=== PATIENT | male | born 1960 | race Caucasian/White ===

== ENCOUNTER → 2016-10-04 | Outpatient (CLI) | payer BC ==
[~2016-10-04] MED LIST: ANT25 PO; ATV/1 SL; GADAVIST IV PRN; HYDR-5688 PO; LACTCHW3 PO; MUPI2OIN9 TOP; NAPR1TAB9 PO
[2016-10-04 12:38] LABS: BLOOD UREA NITROGEN 17 mg/dl (7-18); CREATININE 0.91 mg/dl (0.60-1.40)
--- NOTE | 2016-10-04 12:59 | DIAGNOSTIC IMAGING REPORT ---
MRI OF THE BRAIN WITHOUT AND WITH IV CONTRAST CLINICAL HISTORY: DIZZINESS, VERTIGO WEREN'T VISION. DIFFICULTY. COMPARISON STUDY: No previous studies for comparison. TECHNIQUE: MRI of the brain was performed from the vertex to the skull base utilizing various T1 and T2 weighted sequences. Following the IV administration of 9 mL of Gadavist contrast, additional enhanced images were obtained. FINDINGS: Sagittal T1, axial diffusion, proton density and T2 weighted axial, coronal FLAIR, and pre and post axial T1-weighted images were acquired. These were supplemented with post gadolinium coronal T1 weighted images. No intra or extra-axial mass lesions are visualized. Axial diffusion-weighted images reveal no evidence of acute or subacute infarction. There is no evidence of ventricular dilatation. Proton density T2-weighted and FLAIR images reveal scattered foci of increased T2 signal within the white matter, likely on a small vessel basis. There are no abnormal flow voids. There is no evidence of pathologic enhancement. IMPRESSION: 1. No acute intracranial findings 2. No evidence of intracranial mass. No evidence of acute or subacute infarction 3. Scattered nonspecific foci of increased T2 signal within the white matter, likely on a small vessel basis Electronically signed by: Enio Phillips M.D. 10/04/2016 12:58 PM Dictated Date/Time: 10/04/2016 12:56 PM
== END | disposition home or self-care (01) ==
LOC: C.MRI 11:50
PROVIDERS: ATTEND Family Medicine
DX: H55.00 Unspecified nystagmus (principal); R42 Dizziness and giddiness

== ENCOUNTER 2016-10-05 15:07 | Emergency (ER) | payer BC ==
[~2016-10-05] VITALS: Ht 177.8 cm; Wt 94.5 kg
[~2016-10-05 15:07] MED LIST changes: -ANT25 PO; -ATV/1 SL; -GADAVIST IV PRN
[2016-10-05 15:11] VITALS: TEMP 36.5; Ht 177.8 cm; Wt 94.5 kg
[2016-10-05 16:01] LABS: BASO % 0.2 %; BASO ABS # 0.01 K/uL (0-0.2); COMPLETE YES; EOS % 1.4 %; HEMATOCRIT 44.6 % (42-52); IG% 0.2 %; LYMPH % 34.7 %; LYMPH ABS # 2.18 K/uL (1.2-3.4); MEAN CELL VOLUME 85.6 fL (80-100); MEAN CORPUSCULAR HEMOGLOBIN 30.5 pg (25-34); MEAN CORPUSCULAR HGB CONC 35.7 g/dl (32-36); MEAN PLATELET VOLUME 9.8 fL (7.4-10.4); MONO % 10.2 %; NEUT % 53.3 %; PLATELET COUNT 170 K/uL (130-400); RED BLOOD COUNT 5.21 M/uL (4.7-6.1); WHITE BLOOD COUNT 6.28 K/uL (4.8-10.8)
[2016-10-05] MEDS ORDERED: SODIUM CHLORIDE 0.9% 1000ML 1,000 ML IV STA (16:11)
[2016-10-05] MEDS ORDERED: SODIUM CHLORIDE 0.9% 1000ML 1,000 ML IV ONE (16:11)
[2016-10-05] MEDS ORDERED: LORAZEPAM 1 MG TAB SL STA (16:11)
[2016-10-05 16:14] LABS: BUN/CREATININE RATIO 16.7 (10-20); CALCIUM 9.1 mg/dl (8.5-10.1); POTASSIUM 4.2 mmol/L (3.5-5.1)
[2016-10-05] MEDS ORDERED: NAPR1TAB9 PO (16:24)
[2016-10-05] MEDS ORDERED: ANT25 PO (16:24)
[2016-10-05 16:26] LABS: ALB/GLOB RATIO 1.4 (0.9-2); CKMB/CK RATIO 0.8 (0-3.0); THYROID STIMULATING HORMONE 2.28 uIu/ml (0.300-4.500)
--- NOTE | 2016-10-05 16:32 | EMERGENCY ROOM VISIT NOTE ---
History Report prepared by Lupillo: Valerie Garsia Under the Supervision of: Dr. Ashutosh Jacobo M.D. First contact with patient: 15:57 Chief Complaint: DIZZY Stated Complaint: DIZZY History of Present Illness The patient is a 55 year old male who presents to the Emergency Room with complaints of constant dizziness beginning 2 days ago. The patient states that over the last 2 days his dizziness has worsened and it feels like the room is spinning and he is spinning in the opposite direction. He reports that laying still relieves his dizziness but any movement worsens it. He complains of neck stiffness from holding his head still, headache, nausea, blurry vision with movement, and some shortness of breath. He denies any vomiting, fall, numbness, weakness, trouble speaking, trouble swallowing, ear pain, new ringing in the ears, chest pain, abdominal pain, black stool, bloody stool. The patient notes that he has a history of migraine headaches but this does not feel similar. He reports that he was seen at [facility] and was put on Meclizine that has not relieved his dizziness. He states that he also got an MRI yesterday that was normal. The patient notes that he was seen there again today and they suggested he be seen at the ED. He states that he has not had any neck injury at work but notes that he has a history of some neck issues that he learned about when he had a previous back surgery. Source of History: patient Onset: 2 days ago Position: other (global) Quality: other (dizziness) Timing: constant Modifying Factors (Worsening): movement Modifying Factors (Relieving): rest Associated Symptoms: + headache, + neck pain, + SOB, + nausea, No LOC, No chest pain, No vomiting, No abdominal pain, No weakness, No numbness Note: He complains of blurry vision with movement. He denies any fall, trouble speaking, trouble swallowing, ear pain, new ringing in the ears, black stool, and bloody stool. Review of Systems See HPI for pertinent positives & negatives. A total of 10 systems reviewed and were otherwise negative. Past Medical & Surgical Medical Problems: (1) Abscess of right axilla (2) Aspergillosis (3) Cellulitis (4) Encounter for removal of sutures (5) Foreign body of second finger, right (6) Hemorrhoids Nos (7) History Of Tobacco Use (8) Lumbosacral Spondylosis (9) Sciatica (10) Sialoadenitis (11) Work related injury Surgical Problems: (1) History of back surgery Old medical records were reviewed. Nurse's notes were reviewed and I agree with. Family History FH: cancer Social History Smoking Status: Never Smoker Smokeless Tobacco Use: No Alcohol Use: none Drug Use: none Marital Status: Housing Status: lives with significant other Occupation Status: employed Current/Historical Medications Scheduled Naproxen (Aleve), 440 MG PO PRN UD Scheduled PRN Lorazepam (Ativan), 1 MG SL Q6H PRN for Dizziness or Vertigo Meclizine HCl (Meclizine HCl), 25 MG PO TID PRN for Dizziness or Vertigo Allergies Coded Allergies: Lorazepam (Verified Allergy, Severe, "DANGEROUSLY RAISES BLOOD PRESSURE", 10/05/16) Midazolam (Verified Adverse Reaction, Severe, TACHYCARDIA, 10/05/16) Codeine (Verified Adverse Reaction, Mild, NAUSEA, 10/05/16) Silver (Unverified Adverse Reaction, Unknown, RASH, 10/05/16) developed pain with use of silver alginate Uncoded Allergies: SMOOTH MUSCLE (Allergy, Unknown, "SOME SORT OF MUSCLE RELAXER", 05/04/09) Physical Exam Vital Signs Date Time Temp Pulse Resp B/P (MAP) Pulse Ox O2 Delivery O2 Flow Rate FiO2 10/05/16 20:06 78 20 151/97 97 Room Air 10/05/16 18:30 66 16 133/85 98 Room Air 10/05/16 16:35 63 16 160/84 98 Room Air 10/05/16 16:26 69 143/101 74 162/99 77 160/84 10/05/16 15:29 70 10/05/16 15:11 36.5 66 18 149/100 97 Room Air Physical Exam General: Well developed well nourished in no acute distress, non-ill appearing middle aged male, breathing comfortably on room air. Normal speech HEENT: Normal cephalic atraumatic. Pupils are equal round and reactive to light. Horizontal nystagmus mostly to the right. Oropharynx is pink with moist mucous membranes. No swelling of the mouth lips or tongue. Neck: Supple with a midline trachea. No meningeal signs or stiffness, no JVD or bruits. No Stridor. Chest: Clear to auscultation bilaterally. No wheezes or rhonchi. No increased work of breathing. Heart: regular rate and rhythm. Abdomen: Soft nontender, nondistended without rebound guarding or rigidity. Extremities: No cyanosis clubbing or edema. No calf tenderness or assymetry Spine/Back. Non tender to palpation. No CVA tenderness Skin: Good turgor without rashes. Neurologic exam: Cranial nerves two through 12 are intact. Motor and sensation are intact and symmetrical throughout. Finger to nose intact, no tremor, dizziness occurs when he sits up or moves his head. Medical Decision & Procedures ER Provider Diagnostic Interpretation: Radiology results as stated below per my review and radiologist interpretation: SINGLE VIEW CHEST FINDINGS: An AP, portable, upright chest radiograph is compared to study dated 11/23/2015 and correlated with chest CT dated 09/03/2015. The examination is degraded by portable technique, apical lordotic positioning, and patient rotation. The cardiomediastinal heart is top normal for projection. The pulmonary vascular structures noncongested. The lungs and pleural spaces are clear. No pneumothorax is seen. The bony thorax is grossly intact. IMPRESSION: No acute cardiopulmonary abnormality. Electronically signed by: Jimmy Collazo M.D. 10/05/2016 4:32 PM Dictated Date/Time: 10/05/2016 4:[address] ANGIOGRAM OF THE BRAIN COMBO; CT ANGIOGRAM OF THE NECK FINDINGS: Brain parenchyma: The brain parenchyma is normal in appearance. There is no hemorrhage, mass effect, or evidence of acute territorial ischemia by CT criteria. There is no evidence of enhancing mass lesion on the angiogram phase images. The ventricles, sulci, and cisterns are normal in configuration. Mack-white matter differentiation is preserved. No extra-axial fluid collection is seen. Thoracic aorta: Visualized portions of the thoracic aorta are normal in caliber. The aortic arch demonstrates standard 3-vessel anatomy. Right carotid arterial system: The right common carotid artery is widely patent, as are the right internal and external carotid arteries. Left carotid arterial system: The left common carotid artery is widely patent, as are the left internal and external carotid arteries. Vertebral arteries: The vertebral arteries are widely patent and codominant. Subclavian arteries: Widely patent bilaterally. Intracranial vasculature: The internal carotid arteries are patent at the skull base, as are the anterior and middle cerebral arteries bilaterally. The vertebrobasilar system and posterior cerebral arteries are widely patent. The vertebral arteries are codominant. There is no aneurysm, high-grade stenosis, or focal vessel cut off seen throughout the intracranial circulation. Jugular veins: Widely patent bilaterally. Dural sinuses: Patent. Lung apices: Partially visualized upper lobe lung parenchyma appears clear. Soft tissues: The visualized pharyngeal soft tissues are normal in appearance noting angiographic phase technique. The oropharyngeal airway appears widely patent. The salivary and thyroid glands are normal in appearance. No cervical lymphadenopathy is seen. Skeletal structures: The calvarium appears intact. The cervical spine is within normal limits. Sinuses and mastoids: Trace mucosal thickening is seen within the maxillary antra. The remaining paranasal sinuses are clear. The mastoid air cells are well pneumatized. IMPRESSION: 1. There is no hemorrhage, mass effect, or evidence of acute territorial ischemia by CT criteria. 2. Unremarkable CT angiogram of the brain. 3. Unremarkable CT angiogram of the neck. Electronically signed by: Jimmy Collazo M.D. 10/05/2016 7:10 PM Dictated Date/Time: 10/05/2016 7:03 PM Laboratory Results 10/05/16 15:30 Red Blood Count 5.21, Mean Corpuscular Volume 85.6, Mean Corpuscular Hemoglobin 30.5, Mean Corpuscular Hemoglobin Concent 35.7, Mean Platelet Volume 9.8, Neutrophils (%) (Auto) 53.3, Lymphocytes (%) (Auto) 34.7, Monocytes (%) (Auto) 10.2, Eosinophils (%) (Auto) 1.4, Basophils (%) (Auto) 0.2, Neutrophils # (Auto ) 3.35, Lymphocytes # (Auto) 2.18, Monocytes # (Auto) 0.64, Eosinophils # (Auto ) 0.09, Basophils # (Auto) 0.01 10/05/16 15:30 Test 10/05/16 00:00 10/05/16 15:30 10/05/16 18:06 Urine Color YELLOW Urine Appearance CLEAR (CLEAR) Urine pH 5.0 (4.5-7.5) Urine Specific [place] 1.015 (1.000-1.030) Urine Protein NEG (NEG) Urine Glucose (UA) NEG (NEG) Urine Ketones NEG (NEG) Urine Occult Blood NEG (NEG) Urine Nitrite NEG (NEG) Urine Bilirubin NEG (NEG) Urine Urobilinogen NEG (NEG) Urine Leukocyte Esterase NEG (NEG) Urine WBC (Auto) 0 /hpf (0-5) Urine RBC (Auto) 0-4 /hpf (0-4) Urine Hyaline Casts (Auto) 0 /lpf (0-5) Urine Epithelial Cells (Auto) 0-5 /lpf (0-5) Urine Bacteria (Auto) NEG (NEG) White Blood Count 6.28 K/uL (4.8-10.8) Red Blood Count 5.21 M/uL (4.7-6.1) Hemoglobin 15.9 g/dL (14.0-18.0) Hematocrit 44.6 % (42-52) Mean Corpuscular Volume 85.6 fL (80-100) Mean Corpuscular Hemoglobin 30.5 pg (25-34) Mean Corpuscular Hemoglobin Concent 35.7 g/dl (32-36) Platelet Count 170 K/uL (130-400) Mean Platelet Volume 9.8 fL (7.4-10.4) Neutrophils (%) (Auto) 53.3 % Lymphocytes (%) (Auto) 34.7 % Monocytes (%) (Auto) 10.2 % Eosinophils (%) (Auto) 1.4 % Basophils (%) (Auto) 0.2 % Neutrophils # (Auto) 3.35 K/uL (1.4-6.5) Lymphocytes # (Auto) 2.18 K/uL (1.2-3.4) Monocytes # (Auto) 0.64 K/uL (0.11-0.59) Eosinophils # (Auto) 0.09 K/uL (0-0.5) Basophils # (Auto) 0.01 K/uL (0-0.2) RDW Standard Deviation 37.8 fL (36.4-46.3) RDW Coefficient of Variation 12.0 % (11.5-14.5) Immature Granulocyte % (Auto) 0.2 % Immature Granulocyte # (Auto) 0.01 K/uL (0.00-0.02) Anion Gap 10.0 mmol/L (3-11) Est Creatinine Clear Calc Drug Dose 95.2 ml/min Estimated GFR () 97.1 Estimated GFR (Non- 83.8 BUN/Creatinine Ratio 16.7 (10-20) Calcium Level 9.1 mg/dl (8.5-10.1) Total Bilirubin 0.4 mg/dl (0.2-1) Aspartate Amino Transf (AST/SGOT) 17 U/L (15-37) Alanine Aminotransferase (ALT/SGPT) 42 U/L (12-78) Alkaline Phosphatase 63 U/L (45-117) Total Creatine Kinase 100 U/L (39-308) Creatine Kinase MB 0.8 ng/ml (0.5-3.6) Creatine Kinase MB Ratio 0.8 (0-3.0) Total Protein 7.1 gm/dl (6.4-8.2) Albumin 4.1 gm/dl (3.4-5.0) Globulin 3.0 gm/dl (2.5-4.0) Albumin/Globulin Ratio 1.4 (0.9-2) Thyroid Stimulating Hormone (TSH) 2.280 uIu/ml (0.300-4.500) Chemistry Specimen Hemolysis Troponin I < 0.015 ng/ml (0-0.045) Lyme Disease IgG Antibody NEG (NEG) Lyme Disease IgM Antibody NEG (NEG) Laboratory studies as stated above per my review. Medications Administered Medications (Trade) Dose Ordered Sig/Johnna Route Start Time Stop Time Status Last Admin Dose Admin Sodium Chloride 1,000 ml @ 999 mls/hr Q1H1M STAT IV 10/05/16 16:11 10/05/16 17:11 DC 10/05/16 16:11 999 MLS/HR Sodium Chloride 1,000 ml @ 150 mls/hr Q6H40M ONCE IV 10/05/16 16:11 10/05/16 20:33 DC 10/05/16 16:11 150 MLS/HR Lorazepam (Ativan Tab) 1 mg NOW STAT SL 10/05/16 16:11 10/05/16 16:15 DC 10/05/16 16:11 1 MG Lorazepam (Ativan 1MG Home Pack) 1 homepack UD ONCE PO 10/05/16 20:00 10/05/16 20:01 DC 10/05/16 20:00 1 HOMEPACK Mupirocin (Bactroban 2% Oint) 1 appln ONE STAT EXT 10/05/16 19:46 10/05/16 19:47 DC 10/05/16 19:46 1 APPLN ECG Indication: other (dizziness) Rate (beats per minute): 59 Rhythm: sinus bradycardia Findings: PAC, no acute ischemic change Comparison ECG Date: 08/08/15 Change: PACs now present. ED Course 155: Past medical records reviewed. The patient was evaluated in room C5, and a complete history and physical examination were performed. 161: Ativan Tab 1mg SL, Sodium Chloride 1000 ml @ 150 mls/hr IV, Sodium Chloride 1000 ml @ 999 mls/hr IV. 161: I spoke to Dr. Almanza about the patients case. 172: I reevaluated the patient. He is feeling better after the Ativan. 1820: I reevaluated the patient. He is feeling good. 184: I reevaluated the patient. He is feeling better. 1942: Upon reevaluation, the patient is doing well. I discussed the results and treatment plan with the patient. He verbalized agreement of the treatment plan. The patient was discharged home. Medical Decision Differential diagnosis includes vertigo, CVA, cardiac disease, anemia, vascular pathology, electrolyte or metabolic abnormality. This patient comes in as described above. He's been having dizziness. It is worse with movement. He looks well at rest and has normal neurologic exam with exception of some horizontal nystagmus to the right. I think most likely this is peripheral vertigo. He did have a MRI yesterday which was. He has tried meclizine without much relief. No chest pain or shortness breath. IV access established and she was hydrated with IV normal saline. He was given Ativan 1 mg sublingual he tells me he's had this before but had some nightmares but otherwise felt okay with it and wants to try it. His is driving. I did order a CTA of his head and neck to rule out any vascular pathology. I did discuss this with Dr. Almanza who saw him in the clinic as well. Multiple blood tests was obtained. EKG does not suggest acute coronary syndrome or arrhythmia. Blood work was unremarkable there is no acute electrode or metabolic abnormalities. Lyme testing was negative. CTA of the head and neck was unremarkable. There is no evidence of any vascular abnormalities. The patient felt significantly better with the Ativan. His is driving. I will give a prescription for Ativan 1 mg under the tongue every 8 hours as needed for vertigo he was warned that it could make her drowsy and do not take before drinking, driving, working and do not take with meclizine. He also has a very small pimple on his left arm which the was concerned could be MRSA as he did had this before. I did order some Bactroban to use for this as well as no cellulitis or any drainable abscess. 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 He should rest and return if: Numbness or weakness, worsening symptoms, fever or chills, any new problems concerns. He is happy with the plan and discharged to home. Medication Reconciliation: I attest that I have personally reviewed the patient' s current medication list. Blood Pressure Screening: Patient was found to have a slightly elevated blood pressure due to circumstances. I do not believe that the patient requires hypertension monitoring. Consults Time Called: 1615 Consulting Physician: Dr. Almanza Returned Call: [id number] Almanza about the patients case. Impression Primary Impression: Vertigo Scribe Attestation The scribe's documentation has been prepared under my direction and personally reviewed by me in its entirety. I confirm that the note above accurately reflects all work, treatment, procedures, and medical decision making performed by me. Departure Information Dispostion Home / Self-Care Prescriptions Lorazepam (ATIVAN) 1 Mg Tab 1 MG SL Q6H Y for Dizziness or Vertigo, #14 TAB Prov: Ashutosh Jacobo M.D. 10/05/16 Referrals No Doctor, Assigned (PCP) Forms HOME CARE DOCUMENTATION FORM, IMPORTANT VISIT INFORMATION Patient Instructions My [facility] Additional Instructions Rest. Drink plenty of fluids. Be careful when getting up and down. May use lorazepam/Ativan 1 mg under the tongue every 8 hours if needed for vertigo. Ativan may make you drowsy do not take before drinking, driving, working. Do not take both Ativan and the meclizine. Take one or the other Return if: Worsening of symptoms, fever or chills, chest pain, short of breath, numbness, weakness, any new problems or concerns. Apply Bactroban to the area on your left arm. Follow-up with your doctor this week for recheck
[2016-10-05 18:40] LABS: URINE APPEARANCE CLEAR (CLEAR); URINE BILIRUBIN NEG (NEG); URINE COLOR YELLOW; URINE EPITHELIAL CELL AUTO 0-5 /lpf (0-5); URINE NITRITE NEG (NEG); URINE SPECIFIC GRAVITY 1.015 (1.000-1.030); UROBILINOGEN NEG (NEG); ZZUR CULT IF INDIC CLEAN CATCH NO
[2016-10-05 18:49] LABS: MANUAL MICROSCOPIC REQUIRED? NO; REVIEW REQ? NO
[2016-10-05] MEDS ORDERED: OPTIRAY 320 IV PRN (19:00)
--- NOTE | 2016-10-05 19:12 | DIAGNOSTIC IMAGING REPORT ---
CT ANGIOGRAM OF THE BRAIN COMBO; CT ANGIOGRAM OF THE NECK CLINICAL HISTORY: Dizziness. COMPARISON STUDY: MRI of the brain dated 10/04/2016. TECHNIQUE: Unenhanced axial CT scan of the brain is performed. Subsequently, following the IV administration of 114 of Optiray 320, CT angiogram of the head and neck was performed from the aortic arch to the vertex. Images are reviewed in the axial, sagittal, and coronal planes. 3-D MIPS images are created and assessed. IV contrast was administered without complication. All measurements were calculated based on NASCET criteria. CT DOSE: 1081.41 mGy.cm FINDINGS: Brain parenchyma: The brain parenchyma is normal in appearance. There is no hemorrhage, mass effect, or evidence of acute territorial ischemia by CT criteria. There is no evidence of enhancing mass lesion on the angiogram phase images. The ventricles, sulci, and cisterns are normal in configuration. Mack-white matter differentiation is preserved. No extra-axial fluid collection is seen. Thoracic aorta: Visualized portions of the thoracic aorta are normal in caliber. The aortic arch demonstrates standard 3-vessel anatomy. Right carotid arterial system: The right common carotid artery is widely patent, as are the right internal and external carotid arteries. Left carotid arterial system: The left common carotid artery is widely patent, as are the left internal and external carotid arteries. Vertebral arteries: The vertebral arteries are widely patent and codominant. Subclavian arteries: Widely patent bilaterally. Intracranial vasculature: The internal carotid arteries are patent at the skull base, as are the anterior and middle cerebral arteries bilaterally. The vertebrobasilar system and posterior cerebral arteries are widely patent. The vertebral arteries are codominant. There is no aneurysm, high-grade stenosis, or focal vessel cut off seen throughout the intracranial circulation. Jugular veins: Widely patent bilaterally. Dural sinuses: Patent. Lung apices: Partially visualized upper lobe lung parenchyma appears clear. Soft tissues: The visualized pharyngeal soft tissues are normal in appearance noting angiographic phase technique. The oropharyngeal airway appears widely patent. The salivary and thyroid glands are normal in appearance. No cervical lymphadenopathy is seen. Skeletal structures: The calvarium appears intact. The cervical spine is within normal limits. Sinuses and mastoids: Trace mucosal thickening is seen within the maxillary antra. The remaining paranasal sinuses are clear. The mastoid air cells are well pneumatized. IMPRESSION: 1. There is no hemorrhage, mass effect, or evidence of acute territorial ischemia by CT criteria. 2. Unremarkable CT angiogram of the brain. 3. Unremarkable CT angiogram of the neck. Electronically signed by: Jimmy Collazo M.D. 10/05/2016 7:10 PM Dictated Date/Time: 10/05/2016 7:03 PM
[2016-10-05 19:18] LABS: LYME DISEASE AB IGM NEG (NEG)
[2016-10-05 19:21] LABS: LYME DISEASE AB IGG NEG (NEG)
[2016-10-05] MEDS ORDERED: MUPIROCIN 2% OINT 22 GM TUBE EXT STA (19:46)
[2016-10-05] MEDS ORDERED: ATV/1 SL (19:48)
[2016-10-05] MEDS ORDERED: ATIVAN 1MG HOMEPACK PO ONE (20:00)
[2016-10-05 20:06] VITALS: BP 151/97; PULSE 78; O2SAT 97
== END 2016-10-05 20:16 | disposition home or self-care (01) ==
LOC: C.EDB 15:08 → C.EDC 20:16
DX: R42 Dizziness and giddiness (principal); B44.9 Aspergillosis, unspecified; K64.9 Unspecified hemorrhoids

== ENCOUNTER 2017-01-17 19:17 | Emergency (ER) | payer BC ==
[~2017-01-17] VITALS: Ht 177.8 cm; Wt 101.2 kg
[~2017-01-17 19:17] MED LIST changes: +ANT25 PO; -HYDR-5688 PO; -LACTCHW3 PO; -MUPI2OIN9 TOP
[2017-01-17 19:26] VITALS: TEMP 36.8; Ht 177.8 cm; Wt 101.2 kg
[2017-01-17] MEDS ORDERED: SULF800T23 PO (20:02)
[2017-01-17] MEDS ORDERED: BCTCR/30 EXT (20:02)
[2017-01-17] MEDS ORDERED: CEFA1TAB PEG (20:02)
[2017-01-17] MEDS ORDERED: XYLOCAINE 1%/SOD BICARB 20 ML VIAL INFIL ONE ×2 (20:15→21:00)
[2017-01-17] MEDS ORDERED: BUPIVACAINE 0.5 % 5 MG/1 ML MPF 30ML VIAL INFIL ONE (21:00)
[2017-01-17 21:10] LABS: INR 0.9 (0.9-1.1); PROTHROMBIN TIME (PATIENT) 10.1 SECONDS (9.0-12.0)
[2017-01-17] MEDS ORDERED: ONDANSETRON INJ 2 MG/ML 2 ML VIAL IV STA (21:16)
[2017-01-17] MEDS ORDERED: MoRPHine SULFATE 4 MG/ML 1 ML CARP\\VIAL IV STA ×2 (21:16→22:37)
[2017-01-17 21:18] LABS: BUN/CREATININE RATIO 15.7 (10-20); CALCIUM 9.1 mg/dl (8.5-10.1); CREATININE 1.11 mg/dl (0.60-1.40); POTASSIUM 4.2 mmol/L (3.5-5.1)
[2017-01-17] MEDS ORDERED: VANCOMYCIN 1GM/270ML NSS IV STA (21:21)
[2017-01-17 21:39] LABS: BASO % 0.2 %; BASO ABS # 0.02 K/uL (0-0.2); COMPLETE YES; EOS % 1.3 %; HEMATOCRIT 43.2 % (42-52); IG% 0.2 %; LYMPH % 26.4 %; LYMPH ABS # 2.47 K/uL (1.2-3.4); MEAN CELL VOLUME 84.2 fL (80-100); MEAN CORPUSCULAR HEMOGLOBIN 29.8 pg (25-34); MEAN CORPUSCULAR HGB CONC 35.4 g/dl (32-36); MEAN PLATELET VOLUME 10.5 fL (7.4-10.4); MONO % 12.3 %; NEUT % 59.6 %; PLATELET COUNT 180 K/uL (130-400); RED BLOOD COUNT 5.13 M/uL (4.7-6.1); WHITE BLOOD COUNT 9.36 K/uL (4.8-10.8)
[2017-01-17] MEDS ORDERED: OXYC1TAB3 PO (22:36)
[2017-01-17] MEDS ORDERED: OXYCODONE IR HOME PACK PO ONE (22:45)
--- NOTE | 2017-01-17 23:47 | EMERGENCY ROOM VISIT NOTE ---
ED Visit Note First contact with patient: 21:31 I was asked by Dr. Parada to perform an incision and drainage of this patient's abscess on his right forearm. I examined the patient. Verbal consent was obtained to perform the procedure. After saline and Betadine cleansing and 6 mL of 1% buffered lidocaine and Marcaine anesthesia, the abscess was incised with a number 11 scalpel blade. A large amount of purulent material was released with more expressed by pressure. A swab was obtained for culture. The abscess cavity was further probed with a needle automobile drivers and the deep pocket expressed. The abscess cavity was then copiously irrigated with sterile saline under pressure. The area was then packed with packing. The area was cleaned with sterile saline and dressed with bacitracin and a bulky bandage. The patient tolerated the procedure well.
[2017-01-18 00:29] VITALS: BP 121/70; PULSE 70; O2SAT 97
--- NOTE | 2017-01-18 22:44 | EMERGENCY ROOM VISIT NOTE ---
History Report prepared by Lupillo: Blas Dobbins Under the Supervision of: Dr. Ruy Parada M.D. First contact with patient: 20:05 Chief Complaint: SKIN PROBLEM Stated Complaint: BITE, RIGHT WRIST History of Present Illness The patient is a 56 year old male who presents to the Emergency Room with complaints of a worsening right forearm infection beginning one week ago. He has a history of MRSA. He states that he previously had some streaking up his arm but it has gone away. The patient was seen at [facility] for his symptoms three days ago and was started on Bactrim. He started the Cefadroxil yesterday when he saw Dr. Emerson of infectious disease. He denies vomiting, fevers, or chills. Source of History: patient Onset: One week ago Position: wrist (right) Quality: other (infection) Timing: worsening Associated Symptoms: No fevers, No chills, No vomiting Review of Systems See HPI for pertinent positives & negatives. A total of 10 systems reviewed and were otherwise negative. Past Medical & Surgical Medical Problems: (1) Abscess of right axilla (2) Aspergillosis (3) Cellulitis (4) Encounter for removal of sutures (5) Foreign body of second finger, right (6) Hemorrhoids Nos (7) History Of Tobacco Use (8) Lumbosacral Spondylosis (9) Sciatica (10) Sialoadenitis (11) Work related injury Surgical Problems: (1) History of back surgery Family History FH: cancer Social History Smoking Status: Never Smoker Alcohol Use: none Drug Use: none Marital Status: Housing Status: lives with significant other Occupation Status: employed Current/Historical Medications Scheduled Cefadroxil (Cefadroxil), 1 GM PEG BID Mupirocin 2% (Bactroban 2%), 1 APPLN EXT TID Naproxen (Aleve), 440 MG PO PRN UD Sulfamethoxazole-Trimethoprim (Bactrim Ds 800MG/160MG), 1 TAB PO BID Scheduled PRN Oxycodone Ir (Roxicodone Ir), 5 MG PO Q4H PRN for Pain Allergies Coded Allergies: Lorazepam (Verified Allergy, Severe, "DANGEROUSLY RAISES BLOOD PRESSURE", 01/17/17) Midazolam (Verified Adverse Reaction, Severe, TACHYCARDIA, 01/17/17) Codeine (Verified Adverse Reaction, Mild, NAUSEA, 01/17/17) Silver (Unverified Adverse Reaction, Unknown, RASH, 01/17/17) developed pain with use of silver alginate Uncoded Allergies: SMOOTH MUSCLE (Allergy, Unknown, "SOME SORT OF MUSCLE RELAXER", 05/04/09) Physical Exam Vital Signs Date Time Temp Pulse Resp B/P (MAP) Pulse Ox O2 Delivery O2 Flow Rate FiO2 01/18/17 00:29 70 18 121/70 97 01/17/17 22:30 66 17 132/76 96 Room Air 01/17/17 20:47 75 18 143/86 96 Room Air 01/17/17 19:26 36.8 83 18 150/91 98 Room Air Physical Exam Constitutional: Vital signs reviewed. Eyes: Pupils are equal round reactive to light. Conjunctiva are noninjected. ENT: Pharynx is clear without erythema or exudate. Mucous membranes are moist. Neck supple without meningeal signs. Respiratory: Clear to auscultation bilaterally. Breath sounds are equal bilaterally. Cardiovascular: Regular rate and rhythm. No rubs or gallops. GI: Soft, nondistended and nontender. Bowel sounds are present. Musculoskeletal: Ulnar aspect of distal right forearm with a 5 cm abscess with induration and tenderness. Mild slight erythema to the surrounding forearm up to the elbow. No joint tenderness. Normal distal pulses. No signs of lymphangitis or axillary lymphadenopathy. Integumentary: As above. Neurological: The patient is awake and alert. No focal deficits. Psychiatric: Normal affect. Medical Decision & Procedures Laboratory Results 01/17/17 20:35 Red Blood Count 5.13, Mean Corpuscular Volume 84.2, Mean Corpuscular Hemoglobin 29.8, Mean Corpuscular Hemoglobin Concent 35.4, Mean Platelet Volume 10.5, Neutrophils (%) (Auto) 59.6, Lymphocytes (%) (Auto) 26.4, Monocytes (%) (Auto) 12.3, Eosinophils (%) (Auto) 1.3, Basophils (%) (Auto) 0.2, Neutrophils # (Auto ) 5.58, Lymphocytes # (Auto) 2.47, Monocytes # (Auto) 1.15, Eosinophils # (Auto ) 0.12, Basophils # (Auto) 0.02 01/17/17 20:35 Test 01/17/17 20:35 White Blood Count 9.36 K/uL (4.8-10.8) Red Blood Count 5.13 M/uL (4.7-6.1) Hemoglobin 15.3 g/dL (14.0-18.0) Hematocrit 43.2 % (42-52) Mean Corpuscular Volume 84.2 fL (80-100) Mean Corpuscular Hemoglobin 29.8 pg (25-34) Mean Corpuscular Hemoglobin Concent 35.4 g/dl (32-36) Platelet Count 180 K/uL (130-400) Mean Platelet Volume 10.5 fL (7.4-10.4) Neutrophils (%) (Auto) 59.6 % Lymphocytes (%) (Auto) 26.4 % Monocytes (%) (Auto) 12.3 % Eosinophils (%) (Auto) 1.3 % Basophils (%) (Auto) 0.2 % Neutrophils # (Auto) 5.58 K/uL (1.4-6.5) Lymphocytes # (Auto) 2.47 K/uL (1.2-3.4) Monocytes # (Auto) 1.15 K/uL (0.11-0.59) Eosinophils # (Auto) 0.12 K/uL (0-0.5) Basophils # (Auto) 0.02 K/uL (0-0.2) RDW Standard Deviation 36.6 fL (36.4-46.3) RDW Coefficient of Variation 11.9 % (11.5-14.5) Immature Granulocyte % (Auto) 0.2 % Immature Granulocyte # (Auto) 0.02 K/uL (0.00-0.02) Prothrombin Time 10.1 SECONDS (9.0-12.0) Prothromb Time International Ratio 0.9 (0.9-1.1) Activated Partial Thromboplast Time 26.6 SECONDS (21.0-31.0) Partial Thromboplastin Ratio 1.0 Anion Gap 6.0 mmol/L (3-11) Est Creatinine Clear Calc Drug Dose 87.5 ml/min Estimated GFR () 85.0 Estimated GFR (Non- 73.3 BUN/Creatinine Ratio 15.7 (10-20) Calcium Level 9.1 mg/dl (8.5-10.1) Laboratory results as reviewed by me. Medications Administered Medications (Trade) Dose Ordered Sig/Johnna Route Start Time Stop Time Status Last Admin Dose Admin Morphine Sulfate (MoRPHine SULFATE INJ) 4 mg NOW STAT IV 01/17/17 21:16 01/17/17 21:17 DC 01/17/17 21:38 4 MG Ondansetron HCl (Zofran Inj) 4 mg NOW STAT IV 01/17/17 21:16 01/17/17 21:17 DC 01/17/17 21:38 4 MG Vancomycin HCl (Vancomycin 1gm/ 270ml Nss) 1 gm NOW STAT IV 01/17/17 21:21 01/17/17 21:23 DC 01/17/17 21:54 1 GM Oxycodone HCl (Roxicodone Immediate Rel 5MG Home Pack) 1 homepack UD ONCE PO 01/17/17 22:45 01/17/17 22:58 DC 01/17/17 22:44 1 HOMEPACK Morphine Sulfate (MoRPHine SULFATE INJ) 4 mg NOW STAT IV 01/17/17 22:37 01/17/17 22:38 DC 01/17/17 22:43 4 MG ED Course 2005: The patient was evaluated in room A5. A complete history and physical exam was performed. 2014: Ordered Buffered Lidocaine 1% Inj 20 mL INFIL. 2099: Ordered Marcaine 0.5% MPF Inj 30 mL INFIL. 2115: Ordered Zofran Inj 4 mg IV, Morphine Sulfate 4 mg IV. 2120: Ordered Vancomycin 1 gm/270 mL IV. 2207: Upon reevaluation, the patient appeared to have improvement of his symptoms. I discussed tonight's findings with him. He verbalized agreement of the treatment plan. He will follow up with his PCP on Thursday. The patient was discharged home. Medical Decision This is a 56-year-old male presents with an infection to his right arm. Differential diagnosis includes abscess, cellulitis, lymphangitis, MRSA. I did perform a limited focused review of portions of the patient's old chart on the electronic medical record. The patient had an abscess of the right axilla in July that grew out MRSA. I did evaluate the patient as noted above. She has an obvious cutaneous abscess to his right forearm. He does require I&D. Some very mild erythema to the forearm itself which may represent an early cellulitis. No lymphangitis or lymphadenopathy is noted. No systemic symptoms. IV access was established. I did treat patient with IV morphine and Zofran. He was also given vancomycin 1 g IV. I did order and review the patient's blood work as noted in the electronic medical record. His white blood cell count is not elevated. The PA Madhuri Hutton did perform I&D. Please see her note for further details. A wound culture was sent. At this time the patient does not have any indication for hospitalization. I did, however, recommend very close follow up with his doctor. He does have an appointment with Dr. Emerson in 2 days. The patient was advised to return immediately for any worsening pain. I did attempt to look him up under the PDMP but the site was not working. He was discharged with a prescription for oxycodone. He will continue his antibiotics as prescribed. [place] Drug Monitoring Program Search Results: patient reviewed within database, see additional documentation (Website was not working) Medication Reconcilliation Current Medication List: was personally reviewed by me Blood Pressure Screening Patient's blood pressure: Elevated blood pressure Blood pressure disposition: Referred to PCP Impression Primary Impression: Abscess of right forearm Scribe Attestation The scribe's documentation has been prepared under my direct and personally reviewed by me in its entirety. I confirm that the note above accurately reflects all work, treatment, procedures, and medical decision making performed by me. Departure Information Dispostion Home / Self-Care Prescriptions Oxycodone Ir (Roxicodone Ir) 5 Mg Tab 5 MG PO Q4H Y for Pain, #10 TAB Prov: Ruy Parada M.D. 01/17/17 Referrals Gatito Ward M.D. (PCP) Forms HOME CARE DOCUMENTATION FORM, IMPORTANT VISIT INFORMATION, WORK / SCHOOL INSTRUCTIONS Patient Instructions ED Abscess [facility], [facility] Additional Instructions You have been examined and treated today on an emergency basis only. This is not a substitute for, or an effort to provide, complete comprehensive medical care. It is impossible to recognize and treat all injuries or illnesses in a single emergency department visit. It is therefore important that you follow up closely with Dr. Emerson in 2 days per your appointment. Return for worsening symptoms or if you develop fever, vomiting, significant redness to your right arm or any other concerning symptoms.
--- NOTE | 2017-01-20 18:19 | Pharmacy Progress Note ---
ED Pharmacist Culture FollowUp Date of Service: Jan 20, 2017. Patient was sent home with a prescription for bactrim and cefadroxil, which should cover the MRSA growing from the patient's deep wound culture. Discussed with LISA rosales who deferred management to Dr. Emerson's office, who the patient saw yesterday. Called Dr. Emerson's office and explained culture results and current therapy. Nurse discussed with Dr. Pérez and she gave the okay to stop the cefadroxil and continue the bactrim for MRSA treatment. I called the patient and relayed this information.
== END 2017-01-18 00:30 | disposition home or self-care (01) ==
LOC: C.EDB 19:19 → C.EDA 01-18 00:30
DX: L02.413 Cutaneous abscess of right upper limb (principal); Z86.19 Personal history of other infectious and parasitic diseases; Z87.891 Personal history of nicotine dependence; Z98.890 Other specified postprocedural states; Z79.899 Other long term (current) drug therapy; Z88.5 Allergy status to narcotic agent; Z88.8 Allergy status to other drugs, medicaments and biological substances; Z91.09 Other allergy status, other than to drugs and biological substances; Z80.9 Family history of malignant neoplasm, unspecified

== ENCOUNTER → 2017-03-26 | Outpatient (CLI) | payer BC ==
[~2017-03-26] MED LIST changes: -ANT25 PO; +OXYC1TAB3 PO
[2017-03-26 16:39] LABS: BASO % 0.3 %; BASO ABS # 0.02 K/uL (0-0.2); COMPLETE YES; EOS % 2.8 %; HEMATOCRIT 44.4 % (42-52); IG% 0.3 %; LYMPH % 30.2 %; LYMPH ABS # 2.13 K/uL (1.2-3.4); MEAN CELL VOLUME 83.1 fL (80-100); MEAN CORPUSCULAR HEMOGLOBIN 29.2 pg (25-34); MEAN CORPUSCULAR HGB CONC 35.1 g/dl (32-36); MEAN PLATELET VOLUME 10.3 fL (7.4-10.4); MONO % 10.2 %; NEUT % 56.2 %; PLATELET COUNT 183 K/uL (130-400); RED BLOOD COUNT 5.34 M/uL (4.7-6.1); WHITE BLOOD COUNT 7.06 K/uL (4.8-10.8)
[2017-03-26 16:51] LABS: ALT/SGPT 45 U/L (12-78); BLOOD UREA NITROGEN 19 mg/dl (7-18); BUN/CREATININE RATIO 20.6 (10-20); CALCIUM 8.8 mg/dl (8.5-10.1); CARBON DIOXIDE 26 mmol/L (21-32); CHLORIDE 106 mmol/L (98-107); GLUCOSE 103 mg/dl (70-99); POTASSIUM 3.7 mmol/L (3.5-5.1); SODIUM 138 mmol/L (136-145)
[2017-03-26 17:03] LABS: ALB/GLOB RATIO 1.5 (0.9-2); ALKALINE PHOSPHATASE 69 U/L (45-117); AST/SGOT 21 U/L (15-37)
[2017-03-29 22:36] LABS: FUNGITELL (1-3)-B-D-GLUCAN* <31 pg/mL; FUNGITELL INTERP NEGATIVE; IMMUNOGLOBULIN E TC 24620E 8 KU/L (<115)
== END | disposition home or self-care (01) ==
LOC: C.LAB1850 14:48
PROVIDERS: ATTEND Internal Medicine Pulmonary Disease
DX: A49.01 Methicillin susceptible Staphylococcus aureus infection, unspecified site (principal)

== ENCOUNTER → 2017-04-10 | Outpatient (CLI) | payer OTHER ==
[~2017-04-10] MED LIST changes: +OPTIRAY 320 IV PRN
--- NOTE | 2017-04-10 08:27 | DIAGNOSTIC IMAGING REPORT ---
CT OF THE CHEST WITH IV CONTRAST CLINICAL HISTORY: Methicillin susceptible Staphylococcus aureus infection. Chest pain. COMPARISON STUDY: Chest CT September 03, 2015 and chest radiograph October 05, 2016. TECHNIQUE: Following IV administration of 94 mL of Optiray-320, helical axial images of the chest were obtained. Sagittal and coronal reconstructions were viewed as well as maximal intensity projections on an independent 3-D workstation. A dose lowering technique was utilized adhering to the principles of ALARA. CT DOSE: 487.08 mGy.cm FINDINGS: No enlarged axillary, mediastinal or hilar lymph nodes are present. There are calcified mediastinal and hilar hilar nodes which suggests a prior granulomatous process. These are unchanged. The heart is mildly enlarged. There is no pericardial effusion. There is no thoracic aortic dissection. There is no central pulmonary embolus. No pneumothorax or pleural effusion is noted. Right upper lobe airspace opacity shown on exam of September 13, 2015 has resolved. There is mild residual bronchiectasis with mucoid impaction. Left lower lobe subpleural opacity with volume loss and mucoid impaction is unchanged from earlier exams. This reflects scarring with bronchiectasis. No new sites of consolidation are present. Central airways are otherwise patent. Groundglass opacity suggest atelectasis. Bony thorax is unremarkable. Borderline splenomegaly is unchanged. IMPRESSION: 1. Resolution of the right upper lobe airspace opacity shown on exam of September 03, 2015. Mild residual scarring with bronchiectasis and mucoid impaction. Stable scarring with bronchiectasis and mucoid impaction within the left lower lobe. 2. No consolidation identified. Mild diffuse groundglass opacity favors atelectasis. An infectious process could appear similar although is considered less likely. Electronically signed by: Josep Duval M.D. 04/10/2017 8:26 AM Dictated Date/Time: 04/10/2017 8:13 AM
== END | disposition home or self-care (01) ==
LOC: C.CTS 06:54
PROVIDERS: ATTEND Internal Medicine Pulmonary Disease
DX: A49.01 Methicillin susceptible Staphylococcus aureus infection, unspecified site (principal); J47.9 Bronchiectasis, uncomplicated; J98.09 Other diseases of bronchus, not elsewhere classified

== ENCOUNTER → 2017-05-02 | Outpatient (CLI) | payer OTHER ==
[~2017-05-02] MED LIST changes: -OPTIRAY 320 IV PRN
[2017-05-02 10:35] LABS: BASO % 0.3 %; BASO ABS # 0.02 K/uL (0-0.2); EOS % 1.2 %; EOS ABS # 0.07 K/uL (0-0.5); HEMATOCRIT 43.6 % (42-52); HEMOGLOBIN 15.2 g/dL (14.0-18.0); IG# 0.01 K/uL (0.00-0.02); LYMPH % 32.1 %; LYMPH ABS # 1.86 K/uL (1.2-3.4); MEAN CELL VOLUME 85.5 fL (80-100); MEAN CORPUSCULAR HEMOGLOBIN 29.8 pg (25-34); MEAN CORPUSCULAR HGB CONC 34.9 g/dl (32-36); MEAN PLATELET VOLUME 10.1 fL (7.4-10.4); MONO % 8.6 %; NEUT % 57.6 %; NEUT ABS # 3.34 K/uL (1.4-6.5); PLATELET COUNT 184 K/uL (130-400); RED CELL DISTRIBUTION WIDTH CV 12.2 % (11.5-14.5); RED CELL DISTRIBUTION WIDTH SD 37.8 fL (36.4-46.3)
[2017-05-02 10:49] LABS: INR 0.9 (0.9-1.1); PTT PATIENT 23.7 SECONDS (21.0-31.0)
[2017-05-02 10:51] LABS: ALBUMIN 4.2 gm/dl (3.4-5.0); ALT/SGPT 41 U/L (12-78); BLOOD UREA NITROGEN 14 mg/dl (7-18); CALCIUM 8.9 mg/dl (8.5-10.1); CARBON DIOXIDE 28 mmol/L (21-32); CREATININE 1.01 mg/dl (0.60-1.40); GLUCOSE 110 mg/dl (70-99); SODIUM 140 mmol/L (136-145)
[2017-05-02 10:54] LABS: ALKALINE PHOSPHATASE 64 U/L (45-117); AST/SGOT 18 U/L (15-37); TOTAL PROTEIN 7.1 gm/dl (6.4-8.2)
== END | disposition home or self-care (01) ==
LOC: C.LAB1850 08:48
PROVIDERS: ATTEND Internal Medicine Pulmonary Disease
DX: R06.02 Shortness of breath (principal)

== ENCOUNTER → 2017-05-08 | Day surgery (SDC) | payer OTHER ==
[2017-05-08] VITALS (8 sets, daily range): BP systolic 113–153; BP diastolic 73–86; PULSE 55–69; TEMP 36.3–36.7; O2SAT 95–100; Ht 177.8 cm; Wt 95.5 kg
[~2017-05-08] VITALS: Ht 177.8 cm; Wt 95.5 kg
[~2017-05-08] MED LIST changes: +ATRINS NEB; +FENTANYL CITRATE INJ 50 MCG/1 ML 2 ML VIAL IV ONE; +FLUT1INH7; +LEVALBUTEROL 1.25MG/3ML NEB INH ONE; +LIDOCAINE 4% INH SOLN 4 ML BTL TOP ONE; +LIDOCAINE HCL 2% LOCAL 50ML VIAL INSTIL ONE; +LIDOCAINE VISCOUS 2% 100ML TOP ONE; +MIDAZOLAM HCL 5 MG/ML 1 ML VIAL IV ONE; +OXYMETAZOLINE HCL 0.05% NA SPR 15 ML BTL ONE
--- NOTE | 2017-05-08 08:03 | History & Physical Bridge Note ---
H&P Re-Evaluation Bridge Note: I have examined the patient, reviewed the History & Physical and in the interval since the performance of the History & Physical I have noted the following changes of clinical significance: No changes noted
--- NOTE | 2017-05-08 08:04 | Pre Sedation Assessment ---
Pre Sedation Assessment General Date of Sedation: May 08, 2017. Pre-Sedation Airway Assessment Smoking Status: Never Smoker Mallampati Classification: Class II Procedure Planning Contraindications for Sedation: None Current Medications Reviewed: Yes Notes The planned sedation has been discussed with the patient. Informed Consent was obtained. I have identified the patient, determined the appropriateness of sedation and have assessed the patient immediately prior to the procedure. All medicine(s) and interventions are by my order.
--- NOTE | 2017-05-08 11:12 | Post Sedation Assessment ---
Post Sedation Assessment General Date of Sedation May 08, 2017. Vital Signs: Vital Signs Past 12 Hours Date Time Temp Pulse Resp B/P (MAP) Pulse Ox O2 Delivery O2 Flow Rate FiO2 05/08/17 11:00 76 16 156/74 100 Nasal Cannula 4 05/08/17 10:55 71 16 141/77 100 Mask 15 05/08/17 10:50 71 16 117/79 100 Mask 15 05/08/17 10:45 71 16 117/79 100 Mask 15 05/08/17 10:40 64 16 147/89 98 Mask 4 05/08/17 10:35 80 16 138/87 98 Mask 4 05/08/17 10:20 63 17 145/90 98 Room Air 05/08/17 08:55 36.7 69 18 153/86 (108) 95 Room Air Post Procedure Recovery Score Activity: (2) Moves 4 extremities * Respiration: (2) Deep breath/cough Circulation: (2) +/-20% PreAnes Value Consciousness: (1) Arouseable (by name) Oxygen Saturation: (1) O2 needed for >90% Post Anesthesia Score: 8 Discharge Sedation Level of Care: Fast Track Phase II Post Sedation Plan On clinical assessment, the patient appears to have tolerated the sedation without complications. Patient is recovering as anticipated. Patient will continue to be monitored by nursing and may be discharged when sedation discharge criteria are met per below protocol. Upon Completions of procedure and additional 15 minutes continue every 5 minute vital signs and the P.A.R. score; then discharge to a Phase I or Fast Track to Phase II per the following guidelines: * Discharge Patient to appropriate Phase II area if PAR is 8 or greater or return to pre- procedure baseline. The post - procedure orders will be as directed. * If PAR score is less than 8 or not return to pre-procedure baseline then patient will follow Phase I monitoring till PAR is reached for Phase II. The Phase I may be done in procedure room or may call to secure a Phase I area. * If naloxone or flumazenil are used for reversal, hold in Phase I for an additional 60 -120 minutes before discharge to Phase II. Please call the Sedation Physician to re-evaluate and complete post-note for discharge to Phase II area. Do NOT discharge from procedure sedation or Phase 1 until post- sedation evaluation note is complete by procedure /sedation MD Sedation Discharge Instructions to be given to the patient at discharge to home.
--- NOTE | 2017-05-08 11:16 | Discharge Instructions ---
Discharge Instructions Date of Service May 08, 2017. Admission Reason for Admission: Bronchiectasis, Cough, Shortness Of Breath Discharge Discharge Diagnosis / Problem: Hx of ABPA Discharge Goals Goal(s): Diagnostic testing Activity Recommendations Activity Limitations: resume your previous activity Lifting Limitations: none Exercise/Sports Limitations: none May Resume Sexual Activity: when tolerated Shower/Bathe: no limitations Driving or Machine Use: no limitations None . Instructions / Follow-Up Instructions / Follow-Up ACTIVITY RECOMMENDATIONS: * Rest today, resume normal activity tomorrow. * Do not drive today. SPECIAL CARE INSTRUCTIONS: * Call your physician if you experience any chest or shoulder pain, fever, coughing, spitting up blood (more than 2 teaspoons) or excessive shortness of breath. * Remove dressing from IV site (where needle was placed into the vein) after 2 hours. Apply a warm, moist compress to site if irritation occurs. Call physician if site becomes red or painful to touch. FOLLOW UP VISIT: * Keep any scheduled doctor appointments. Current Hospital Diet Patient's current hospital diet: Regular Discharge Diet Recommended Diet: Regular Diet Fluid Restriction: None Procedures Procedures Performed: BRONCHOSCOPY Pending Studies Studies pending at discharge: no Medical Emergencies . Who to Call and When: Medical Emergencies: If at any time you feel your situation is an emergency, please call 911 immediately. . Non-Emergent Contact Non-Emergency issues call your: Manufactured Buildings Repairer Call Non-Emergent contact if: temperature is above 101 . . "Provider Documentation" section prepared by Gatito Maynard. . VTE Core Measure Inpt VTE Proph given/why not?: Treatment not indicated
--- NOTE | 2017-05-08 12:22 | OPERATIVE REPORT ---
DATE OF OPERATION: 05/08/2017 PROCEDURE: Fiberoptic bronchoscopy with bronchoalveolar lavage. INDICATIONS: Persistent cough in a patient with history of invasive Aspergillus infection. ANESTHESIA PREOPERATIVELY: None. ANESTHESIA DURING PROCEDURE: 4 mg IV Versed, 100 mcg IV fentanyl, 20 mL 2% Xylocaine spray above and below the cords, 4% viscous Xylocaine intranasally. PROCEDURE IN DETAIL: Fiberoptic bronchoscope was inserted into the right naris and passed to the level of the true vocal cords. The cords appeared to approximate normally with phonation without evidence of lesions or paralysis. The area was anesthetized with 2% Xylocaine spray. The scope was then introduced into the trachea and right and left tracheobronchial tree. The mandy was sharp. The right main stem bronchus was explored and no endobronchial lesion was seen. Right upper lobe, the apical posterior and anterior segments, bronchus intermedius, right middle lobe, medial and lateral segments, and all basilar segments of right lower lobe were found to be free of endobronchial lesions. Each lobar segment was lavaged with normosol and the aspirate sent for appropriate studies. A global degree of inflammatory mucosal change was seen consistent with chronic inflammation. The left tracheobronchial tree was explored and no endobronchial lesion was seen. Left upper lobe of the apical-posterior and anterior segments, lingular subdivision and left lower lobe were free of endobronchial lesions down to subsegmental bronchi. Each lobar segment was also copiously lavaged with normosol and the aspirate sent for appropriate studies. No brushings or biopsies were obtained or deemed necessary. The procedure was terminated. The patient appeared to tolerate the procedure well and was given nebulizer treatment with Xopenex 1.25 mg and transferred to the medical treatment unit hemodynamically stable with no signs of respiratory compromise. ADDENDUM The patient gave history of a POSSIBLE ALLERGY TO VERSED. I reviewed his entire record, all progress notes, history and physicals, and operative reports as well as the nursing notation during pre- and post-bronchoscopic procedures in the past. His original bronchoscopic procedure in [address] Holcomb shows that he used 3 mg of IV Versed in addition to a preoperative medication that included Demerol, Phenergan and atropine, and no charted reaction to Versed was noted. The patient's hemodynamics were stable. No significant bleeding was encountered at that time. In 2015, he underwent fiberoptic bronchoscopy with navigational biopsy with Dr. Parkinson and Dr. Adithya Luna in the operating room. The patient was intubated. Propofol and other agents were used. There was no sign or comment of hemodynamic instability or inappropriate tachycardia mentioned. All perioperative notations were reviewed and once again no obvious sign of hemodynamic instability from anesthesia was noted. During this procedure, the patient was administered with IV Versed along with IV fentanyl and demonstrated no sinus tachycardia or hemodynamic instability or for that matter any respiratory distress. To reiterate, the patient was treated for left lower lobe cavitary pneumonia in 2005, felt to be secondary to Aspergillus fumigatus. IgE level and precipitin levels of Aspergillus were negative at that time. Quantitative immunoglobulins showed an adequate IgG level. Serum Fungitell assessment was negative and galactomannan both on serology endobronchial fluid was also negative. During his hospitalization on 07/30/2015, he was treated with IV ceftriaxone, clindamycin and IV voriconazole. In 2005, he was treated with IV voriconazole and then switched to oral voriconazole 200 mg p.o. b.i.d. He was given a loading dose and then maintenance dose of intravenous before being converted to an oral agent. Transbronchial biopsy at that time showed granulomatous inflammation, although the pathologist did not feel that was pathognomonic for sarcoidosis. Special stains for acid fast bacilli and fungus were negative. Previous CAT scans have shown right upper lobe opacities as well as left lower lobe linear densities and right upper lobe opacities. The patient has had MRSA infection in subcutaneous tissue with right axillary abscesses that have been treated. The patient has been seen on a continual basis at the wound care clinic. I attest to the content of the Intraoperative Record and any orders documented therein. Any exception s are noted below.
[2017-05-12 13:22] LABS: HERPES SIMPLEX VIRUS CULT NOT ISOLATED (NOT ISOLATED)
== END | disposition home or self-care (01) ==
LOC: C.ACU 08:25
PROVIDERS: ATTEND Internal Medicine Pulmonary Disease
DX: J47.9 Bronchiectasis, uncomplicated (principal); R05 Cough; R06.02 Shortness of breath; E78.5 Hyperlipidemia, unspecified; Z87.09 Personal history of other diseases of the respiratory system; Z98.890 Other specified postprocedural states; Z87.891 Personal history of nicotine dependence; Z88.5 Allergy status to narcotic agent; Z80.9 Family history of malignant neoplasm, unspecified; Z82.49 Family history of ischemic heart disease and other diseases of the circulatory system; Z83.3 Family history of diabetes mellitus; Z84.1 Family history of disorders of kidney and ureter

== ENCOUNTER 2017-05-19 16:18 | Inpatient (IN) | payer OTHER ==
[~2017-05-19] VITALS: Ht 177.8 cm; Wt 96.4 kg
[~2017-05-19 16:18] MED LIST changes: -FENTANYL CITRATE INJ 50 MCG/1 ML 2 ML VIAL IV ONE; -FLUT1INH7; +FLUT1INH7 INH; -LEVALBUTEROL 1.25MG/3ML NEB INH ONE; -LIDOCAINE 4% INH SOLN 4 ML BTL TOP ONE; -LIDOCAINE HCL 2% LOCAL 50ML VIAL INSTIL ONE; -LIDOCAINE VISCOUS 2% 100ML TOP ONE; -MIDAZOLAM HCL 5 MG/ML 1 ML VIAL IV ONE; -OXYC1TAB3 PO; -OXYMETAZOLINE HCL 0.05% NA SPR 15 ML BTL ONE
[2017-05-19 18:27] VITALS: BP 136/86; PULSE 83; TEMP 36.4; O2SAT 95; Ht 177.8 cm; Wt 96.4 kg
[2017-05-19] MEDS ORDERED: SULF800T23 PO (18:27)
[2017-05-19] MEDS ORDERED: ACETAMINOPHEN 325 MG TAB PO PRN (18:30)
[2017-05-19] MEDS ORDERED: ONDANSETRON INJ 2 MG/ML 2 ML VIAL IV PRN (18:30)
--- NOTE | 2017-05-19 19:09 | History and Physical ---
History & Physical Date & Time of Service: May 19, 2017 at 18:50 Chief Complaint: Pneumonia Primary Care Physician: Gatito Ward M.D. 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 Maynard's office with worsening respiratory symptoms after bronchoscopy was performed on 05/11. Pt was see in the office today with a worsening nonproductive cough, increased shortness of breath with minimal activity. He denies any fevers, chills, or sweats. He notes that he had been using his nebulizer machine 3 times a day, however he noticed that this was not helping his respiratory status at all within the past week. He has been using his Brio elliptical inhaler as prescribed. He has also been taking Bactrim 8001 60 mg BIDand has completed a 7 day so far. The patient also notes that last evening he experienced severe muscle cramping in his legs bilaterally, upper extremities and in his back. He reports poor fluid intake on a regular basis. Patient denies any other acute complaints. 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 He has respiratory exposures including asbestos and fumes. The patient lives at home with his The patient uses coal to heat his home for >20 years. Has 1 dog in the house. Past Medical/Surgical History Medical Problems: (1) Abscess of right axilla (2) Aspergillosis (3) Cellulitis (4) Encounter for removal of sutures (5) Foreign body of second finger, right (6) Hemorrhoids Nos (7) History Of Tobacco Use (8) Lumbosacral Spondylosis (9) MRSA pneumonia (10) Sciatica (11) Sialoadenitis (12) Work related injury Surgical Problems: (1) History of back surgery Family History FH: cancer Mother: at age 73, in 2002 from melanoma Father: at age 68, in 1997 from heart disease. Social History Smoking Status: Former Smoker Smokeless Tobacco Use: No Alcohol Use: occasionally Drug Use: none Marital Status: Housing status: lives with family Occupational Status: employed Immunizations History of Influenza Vaccine: No History of Tetanus Vaccine?: Yes History of Pneumococcal: Yes Pneumococcal Date: May 04, 2005 History of Hepatitis B Vaccine: No Multi-Drug Resistant Organisms History of MDRO: Yes Type of MDRO: MRSA Allergies Coded Allergies: Lorazepam (Verified Allergy, Severe, "DANGEROUSLY RAISES BLOOD PRESSURE", 05/08/17) Midazolam (Verified Adverse Reaction, Severe, TACHYCARDIA, 05/08/17) Codeine (Verified Adverse Reaction, Mild, NAUSEA, 05/08/17) Silver (Unverified Adverse Reaction, Unknown, RASH,PAIN WITH SILVER ALGINATE, 05/19/17) developed pain with use of silver alginate Uncoded Allergies: SMOOTH MUSCLE (Allergy, Unknown, "SOME SORT OF MUSCLE RELAXER", 05/04/09) Home Medications Scheduled Fluticasone Furoate-Vilanterol (Breo Ellipta 200-25 Mcg/INH), 200 MCG DAILY Ipratropium [place] (Ipratropium [facility]), 1 VIAL NEB QID Naproxen (Aleve), 440 MG PO PRN UD Sulfa/Trimethoprim (Bactrim Ds 800MG/160MG), 1 TAB PO BID Review of Systems Constitutional: No fever, sweats or chills Eyes: No diplopia, no worsening or blurred vision ENT: normal hearing, no trouble swallowing Respiratory: See HPI Cardiovascular: No chest pain, tightness or palpitations Abdomen: No pain, nausea, vomiting, diarrhea or constipation Musculoskeletal: No joint pain, calf pain, or swelling. + muscle cramps Neurologic: No weakness, numbness/tingling, or balance problems Psychiatric: No anxiety or depression Skin: No rash or itch Physical Exam Vital Signs Date Time Temp Pulse Resp B/P (MAP) Pulse Ox O2 Delivery O2 Flow Rate FiO2 05/19/17 18:27 36.4 83 18 136/86 95 Room Air General: awake, alert, no apparent distress, well-nourished physically fit appearing male. Head: Normocephalic, atraumatic ENT: PERRL, EOMI, no pharyngeal exudate, mucous membranes moist Chest: + Dry cough, on room air, diminished breath sounds on the right side compared to the left, tight breath sounds, faint expiratory wheeze. No rales or rhonchi Cardiac: Regular rate and rhythm, no murmur, no JVD, normal peripheral pulses, good capillary refill Abdominal: NABS x 4 quadrants, soft, nontender to palpation, no rebound, guarding or tenderness Extremities: Normal inspection, no peripheral edema or erythema, calfs nontender to palpation Psych: Normal mood and affect Neuro: AAO x 3, strength intact bilaterally and related 5/5, no motor deficits, speech is clear, no peripheral sensory deficits Diagnostics Laboratory Results Results Past 24 Hours Test 05/19/17 18:41 Range/Units Diagnostic Radiology Chest x-ray ordered -based upon findings may consider a CT of the chest EKG ordered Impression Assessment and Plan This is a 56 yo M with 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 Maynard's office with worsening respiratory symptoms after bronchoscopy was performed on 05/08, while on antibiotic therapy with Bactrim. MRSA pneumonia - s/p bronchoscopy completed 05/08/[address] Maynard Bronchial washings positive for MRSA staph aureus which was sensitive to Bactrim, vancomycin, rifampin. Negative for any yeast or hyphae. AFB negative. HSV negative. The patient was started on Bactrim on 05/11 -has completed 7 day course. - Blood cultures 2, lactic acid, CBC and PRP, magnesium ordered - We will check a 2 view CXR, depending on results may be beneficial to obtain a CT of the chest. - Start the patient on IV Vanco at this time - Consult pulmonary - Consult infectious disease - Continue supportive care with duo nebs, O2, Mucinex, incentive spirometry. - Can continue Breo inhaler at this time Muscle Spasm - Checking magnesium along with PRR - Encourage oral hydration, he may be dehydrated and need IVFs pending lab results. DVT prophylaxis: Teds, SCDs, heparin subcu CODE STATUS: Full code Disposition: Patient from home, lives with his , [place] to assist with discharge planning Level of Care Med/Surg Advanced Directives Existing Living Will: Yes Existing Power of Kinder Teacher: Yes VTE Prophylaxis VTE Risk Assessment Done? Y/N: Yes Risk Level: Very Low Given or contraindicated: Unfractionated heparin SQ, T.E.D. Stockings, SCD's Reviewed: Pt Seen/Exam by Me History Pt is with ongoing cough and SOB. SOB is not usually at rest, but with most exertion. He tried to go for a walk over the weekend and this was not possible due to his breathing. When he gets SOB or coughs for long periods of time, he gets a chest pressure like a fullness. No overt chest pain. He does feel that he does not drink enough at baseline and this has been the case recently as well. He has been tolerating PO without issue. Agree with HPI/ROS as noted by PA. It was reported to me by Dr. Maynard that pt was having muscle spasms and there was concern for possible epidural abscess. Pt reports that he is not having spasms but cramping over the last 2 nights. Cramps have been R lateral chest wall, back, b/l thighs. This is not his usual. General Appearance: WD/WN, no apparent distress Eye Exam: bilateral eye normal inspection, bilateral eye other (normal sclera) Respiratory: no respiratory distress, decreased breath sounds, other (neg for wheezing) Cardiovascular: normal peripheral pulses, regular rate, rhythm Gastrointestinal: non tender, soft Extremities: non-tender, no pedal edema Neurologic/Psychiatric: alert, normal mood/affect, oriented x 3 Skin Characteristics: normal color, warm/dry Assessment/Plan Agree with plan as outlined above Recent bronch with MRSA PNA Bactrim -> vanco WBC WNL, afebrile Blood and sputum cx pending Muscle cramping: ARF noted on labs in the setting of poor fluid intake per pt report Will start IVF and monitor K WNL, Mg pending Given cramping is noted at various sites and dehydration is more likely with pt otherwise stable and afebrile, will hold on MRI or ortho c/s for now Lactic acid is WNL CXR neg for acute
[2017-05-19] MEDS ORDERED: VANCOMYCIN CONSULT ACTIVE PRN (19:15)
[2017-05-19] MEDS ORDERED: POLYETHYLENE (MIRALAX) 17 GM PACK PO PRN (19:30)
[2017-05-19 19:42] LABS: BASO % 0.2 %; BASO ABS # 0.02 K/uL (0-0.2); EOS % 1.2 %; HEMATOCRIT 43.8 % (42-52); HEMOGLOBIN 15.8 g/dL (14.0-18.0); IG# 0.02 K/uL (0.00-0.02); LYMPH ABS # 2.74 K/uL (1.2-3.4); MEAN CELL VOLUME 83.3 fL (80-100); MEAN CORPUSCULAR HGB CONC 36.1 g/dl (32-36); MONO % 7.5 %; MONO ABS # 0.64 K/uL (0.11-0.59); NEUT % 58.9 %; NEUT ABS # 5.03 K/uL (1.4-6.5); PLATELET COUNT 175 K/uL (130-400); RED CELL DISTRIBUTION WIDTH CV 12.2 % (11.5-14.5); RED CELL DISTRIBUTION WIDTH SD 36.8 fL (36.4-46.3); WHITE BLOOD COUNT 8.55 K/uL (4.8-10.8)
[2017-05-19] MEDS ORDERED: VANCOMYCIN INJ 2,500 MG in SODIUM CHLORIDE 0.9% 500ML 500 ML IV ONE (20:00)
--- NOTE | 2017-05-19 20:06 | DIAGNOSTIC IMAGING REPORT ---
TWO VIEW CHEST CLINICAL HISTORY: Follow-up pneumonia. FINDINGS: PA and lateral chest radiographs are compared to study dated 10/05/2016 and correlated with chest CT dated 04/10/2017. The heart is mildly enlarged. The pulmonary vasculature is noncongested. Linear atelectasis versus scarring is seen in the left lower lung. No airspace consolidation is identified typical for pneumonia and there is no pleural effusion. There is no pneumothorax. The bony thorax appears intact. IMPRESSION: Mild cardiac enlargement with no acute cardiopulmonary abnormality. Electronically signed by: Jimmy Collazo M.D. 05/19/2017 8:05 PM Dictated Date/Time: 05/19/2017 8:03 PM
[2017-05-19 20:09] LABS: CALCIUM 9.1 mg/dl (8.5-10.1); CREATININE 1.41 mg/dl (0.60-1.40); POTASSIUM 4.3 mmol/L (3.5-5.1)
[2017-05-19] MEDS: GUAIFENESIN 600 MG TABCR PO SCH (20:23)
[2017-05-19 20:59] VITALS: PULSE 81; O2SAT 97
[2017-05-19] MEDS: ALBUT/IPRATROP 3MG/0.5MG NEB 3 ML VIAL INH SCH (20:59)
[2017-05-19] MEDS: SODIUM CHLORIDE 0.9% 1000ML 1,000 ML IV SCH (21:12)
[2017-05-19] MEDS: HEPARIN SOD 5000 UNIT/0.5 ML CARP SQ SCH (21:12)
[2017-05-20] VITALS (8 sets, daily range): BP systolic 116–156; BP diastolic 71–78; PULSE 60–70; TEMP 36.3–36.7; O2SAT 95–98
[2017-05-20] MEDS: VANCOMYCIN INJ 1,500 MG in SODIUM CHLORIDE 0.9% 500ML 500 ML IV SCH ×2 (05:55→15:46)
[2017-05-20] MEDS: HEPARIN SOD 5000 UNIT/0.5 ML CARP SQ SCH ×3 (06:00→20:40)
[2017-05-20 06:48] LABS: BASO % 0.4 %; BASO ABS # 0.02 K/uL (0-0.2); EOS % 1.8 %; HEMOGLOBIN 14.6 g/dL (14.0-18.0); IG# 0.01 K/uL (0.00-0.02); LYMPH % 38.1 %; LYMPH ABS # 2.16 K/uL (1.2-3.4); MEAN CELL VOLUME 84.4 fL (80-100); MEAN CORPUSCULAR HGB CONC 35.6 g/dl (32-36); MEAN PLATELET VOLUME 9.8 fL (7.4-10.4); MONO % 8.3 %; MONO ABS # 0.47 K/uL (0.11-0.59); NEUT % 51.2 %; NEUT ABS # 2.91 K/uL (1.4-6.5); PLATELET COUNT 144 K/uL (130-400); RED CELL DISTRIBUTION WIDTH CV 12.3 % (11.5-14.5); RED CELL DISTRIBUTION WIDTH SD 37.4 fL (36.4-46.3); WHITE BLOOD COUNT 5.67 K/uL (4.8-10.8)
[2017-05-20] MEDS: ALBUT/IPRATROP 3MG/0.5MG NEB 3 ML VIAL INH SCH ×4 (07:08→20:08)
[2017-05-20 07:31] LABS: CALCIUM 8.3 mg/dl (8.5-10.1); POTASSIUM 4.2 mmol/L (3.5-5.1)
[2017-05-20] MEDS: GUAIFENESIN 600 MG TABCR PO SCH ×2 (07:39→20:41)
[2017-05-20] MEDS: SODIUM CHLORIDE 0.9% 1000ML 1,000 ML IV SCH (07:39)
--- NOTE | 2017-05-20 10:54 | Medical Consult ---
Consultation Date of Consultation: May 20, 2017. Attending Physician: Meg Beauchamp DO Reason for Consultation: MRSA pneumonia History of Present Illness 56-year-old male well known to me from previous infectious disease consultation and follow-up, with history of Aspergillus infection, recurrent MRSA skin infection, previous history of Lyme disease, who states that he has been ill since February with cough and shortness of breath. He has been treated with courses of antibiotics without much improvement, and underwent bronchoscopy earlier this month with finding of positive culture for MRSA. Patient has received so far 7 days of Bactrim without significant improvement. Shortness of breath and cough for now worsening. Patient now also complaining of severe crampy pain in his muscles involving his legs, arms, and back. Chest x-ray on admission, read by me, and shows no obvious infiltrate. No significant fever reported. Patient states that he is convinced that this is from his previous Lyme disease. No other significant travel or exposure history. Past Medical/Surgical History Medical Problems: (1) Cellulitis of right axilla Status: Acute (2) Hemorrhoids Nos Status: Chronic (3) Lumbosacral Spondylosis Status: Chronic (4) Lung mass Status: Acute (5) Sciatica Status: Chronic (6) Sialoadenitis Status: Chronic (7) Vertigo Status: Acute Medical Problems: (1) Abscess of right axilla (2) Aspergillosis (3) Cellulitis (4) Encounter for removal of sutures (5) Foreign body of second finger, right (6) Hemorrhoids Nos (7) History Of Tobacco Use (8) Lumbosacral Spondylosis (9) MRSA pneumonia (10) Sciatica (11) Sialoadenitis (12) Work related injury Surgical Problems: (1) History of back surgery Family History FH: cancer Social History Smoking Status: Former Smoker Smokeless Tobacco Use: No Alcohol Use: occasionally Drug Use: none Marital Status: Housing Status: lives with significant other Occupation Status: employed Allergies Coded Allergies: Lorazepam (Verified Allergy, Severe, "DANGEROUSLY RAISES BLOOD PRESSURE", 05/08/17) Midazolam (Verified Adverse Reaction, Severe, TACHYCARDIA, 05/08/17) Codeine (Verified Adverse Reaction, Mild, NAUSEA, 05/08/17) Silver (Unverified Adverse Reaction, Unknown, RASH,PAIN WITH SILVER ALGINATE, 05/19/17) developed pain with use of silver alginate Uncoded Allergies: SMOOTH MUSCLE (Allergy, Unknown, "SOME SORT OF MUSCLE RELAXER", 05/04/09) Current Inpatient Medications Current Inpatient Medications Medications (Trade) Dose Ordered Sig/Johnna Route Start Time Stop Time Status Last Admin Dose Admin Heparin Sodium (Porcine) (Heparin Sq 5000 Unit/0.5ml) 5,000 unit Q8H SQ 05/19/17 22:00 06/18/17 21:59 Acetaminophen (Tylenol Tab) 650 mg Q4H PRN PO 05/19/17 18:30 06/18/17 18:29 Polyethylene (Miralax Powder Packet) 17 gm DAILY PRN PO 05/19/17 19:30 06/18/17 19:29 Ondansetron HCl (Zofran Inj) 4 mg Q6H PRN IV 05/19/17 18:30 06/18/17 18:29 Albuterol/ Ipratropium (Duoneb) 3 ml QIDR INH 05/19/17 20:00 06/18/17 19:59 05/20/17 07:08 3 ML Miscellaneous Information (Order Awaiting Action) 1 ea QS N/A 05/20/17 00:00 06/19/17 00:00 Guaifenesin (Mucinex Contr Rel Tab) 600 mg Q12 PO 05/19/17 21:00 06/18/17 20:59 05/20/17 07:39 600 MG Vancomycin HCl 1500 mg/Sodium Chloride 530 ml @ 195 mls/hr Q10H IV 05/20/17 06:00 05/27/17 05:59 05/20/17 05:55 195 MLS/HR Miscellaneous Information (Consult) 1 ea UD PRN N/A 05/19/17 19:15 06/18/17 19:14 Review of Systems Constitutional: + weakness, + fatigue, No fever Eyes: No problem reported ENT: No problem reported Respiratory: + cough, + shortness of breath Cardiovascular: No problem reported Musculoskeletal: + muscle pain Genitourinary - Male: No problem reported Neurologic: + weakness Psychiatric: No problem reported Endocrine: No problem reported Hematologic / Lymphatic: No problem reported Integumentary: No problem reported Allergic / Immunologic: No problem reported Physical Exam Date Time Temp Pulse Resp B/P (MAP) Pulse Ox O2 Delivery O2 Flow Rate FiO2 05/20/17 08:00 Room Air 05/20/17 07:44 36.3 60 16 156/71 (99) 97 Room Air 05/20/17 07:11 66 14 98 Room Air 05/20/17 01:28 36.7 61 20 116/73 (87) 95 Room Air 05/20/17 00:00 Room Air 05/19/17 20:59 81 14 97 Room Air 05/19/17 20:45 Room Air 05/19/17 18:27 36.4 83 18 136/86 95 Room Air General Appearance: WD/WN, no apparent distress Head: normocephalic, atraumatic Eyes: normal inspection, EOMI, sclerae normal ENT: normal ENT inspection, hearing grossly normal, pharynx normal Neck: supple, no adenopathy, thyroid normal, trachea midline Respiratory/Chest: chest non-tender, lungs clear, normal breath sounds, no respiratory distress Cardiovascular: regular rate, rhythm, no gallop, no murmur Abdomen/GI: normal bowel sounds, non tender, soft, no organomegaly Back: normal inspection, no CVA tenderness Extremities/Musculoskelatal: no calf tenderness, normal capillary refill, non- tender Neurologic/Psych: alert, oriented x 3 Skin: normal color, warm/dry, no rash Lymphatic: no adenopathy Laboratory Results Date/Time Source Procedure Growth Status 05/19/17 19:30 Blood Blood Culture Pending Received 05/19/17 19:19 Blood Blood Culture Pending Received Last 24 Hours Test 05/19/17 19:19 05/19/17 23:40 05/20/17 06:23 White Blood Count 8.55 K/uL 5.67 K/uL Red Blood Count 5.26 M/uL 4.86 M/uL Hemoglobin 15.8 g/dL 14.6 g/dL Hematocrit 43.8 % 41.0 % Mean Corpuscular Volume 83.3 fL 84.4 fL Mean Corpuscular Hemoglobin 30.0 pg 30.0 pg Mean Corpuscular Hemoglobin Concent 36.1 g/dl 35.6 g/dl Platelet Count 175 K/uL 144 K/uL Mean Platelet Volume 10.0 fL 9.8 fL Neutrophils (%) (Auto) 58.9 % 51.2 % Lymphocytes (%) (Auto) 32.0 % 38.1 % Monocytes (%) (Auto) 7.5 % 8.3 % Eosinophils (%) (Auto) 1.2 % 1.8 % Basophils (%) (Auto) 0.2 % 0.4 % Neutrophils # (Auto) 5.03 K/uL 2.91 K/uL Lymphocytes # (Auto) 2.74 K/uL 2.16 K/uL Monocytes # (Auto) 0.64 K/uL 0.47 K/uL Eosinophils # (Auto) 0.10 K/uL 0.10 K/uL Basophils # (Auto) 0.02 K/uL 0.02 K/uL RDW Standard Deviation 36.8 fL 37.4 fL RDW Coefficient of Variation 12.2 % 12.3 % Immature Granulocyte % (Auto) 0.2 % 0.2 % Immature Granulocyte # (Auto) 0.02 K/uL 0.01 K/uL Sodium Level 138 mmol/L 139 mmol/L Potassium Level 4.3 mmol/L 4.2 mmol/L Chloride Level 104 mmol/L 108 mmol/L Carbon Dioxide Level 26 mmol/L 23 mmol/L Anion Gap 8.0 mmol/L 8.0 mmol/L Blood Urea Nitrogen 20 mg/dl 16 mg/dl Creatinine 1.41 mg/dl 1.00 mg/dl Est Creatinine Clear Calc Drug Dose 67.3 ml/min 94.9 ml/min Estimated GFR () 63.6 96.4 Estimated GFR (Non- 54.9 83.2 BUN/Creatinine Ratio 13.8 15.8 Random Glucose 150 mg/dl 103 mg/dl Lactic Acid Level 2.0 mmol/L Calcium Level 9.1 mg/dl 8.3 mg/dl Magnesium Level 2.3 mg/dl 2.4 mg/dl Hepatitis C Antibody Screen NEG Urine Color YELLOW Urine Appearance CLEAR Urine pH 6.5 Urine Specific [place] 1.008 Urine Protein NEG Urine Glucose (UA) NEG Urine Ketones NEG Urine Occult Blood NEG Urine Nitrite NEG Urine Bilirubin NEG Urine Urobilinogen NEG Urine Leukocyte Esterase NEG TWO VIEW CHEST CLINICAL HISTORY: Follow-up pneumonia. FINDINGS: PA and lateral chest radiographs are compared to study dated 10/05/2016 and correlated with chest CT dated 04/10/2017. The heart is mildly enlarged. The pulmonary vasculature is noncongested. Linear atelectasis versus scarring is seen in the left lower lung. No airspace consolidation is identified typical for pneumonia and there is no pleural effusion. There is no pneumothorax. The bony thorax appears intact. IMPRESSION: Mild cardiac enlargement with no acute cardiopulmonary abnormality. Electronically signed by: Jimmy Collazo M.D. 05/19/2017 8:05 PM Dictated Date/Time: 05/19/2017 8:03 PM The status of this report is Signed. Draft = Not yet reviewed or approved by Radiologist. Signed = Reviewed and approved by Radiologist. 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> <DateOfBirth>1960</DateOfBirth> <Location> [facility]</Location> <ServiceDate></ServiceDate> <MNE>ESINDI</MNE> <OrderingPhy> Shanthi Muhammad PA-C</OrderingPhy> <OrderingPhyMNE>f rep ord dr adams</ OrderingPhyMNE> <DictatingPhyMNE>f rep dict dr adams</DictatingPhyMNE> <CCListMNE> f rep ct moraimae</CCListMNE> <AdmittingPhyMNE>f pt admit dr adams</AdmittingPhyMNE> < AttendingPhyMNE>f pt attend dr adams</AttendingPhyMNE> <ConsultingPhyMNE>f pt consult dr adams</ConsultingPhyMNE> <FamilyPhyMNE>f pt fam dr adams</FamilyPhyMNE Assessment & Plan 56-year-old male with history of recurrent MRSA infection, now with several months of worsening cough and shortness of breath, now accompanied by severe myalgias. Chest x-ray shows no obvious explanation for severe shortness of breath. I am concerned about the possibility of noninfectious process such as vasculitic/autoimmune/collagen vascular disease. For now, patient will be continued on antibiotics, but additional workup for above possibilities has been ordered. Doubt that Lyme disease is playing a role in this patient. Will discuss with all involved. Will follow.
[2017-05-20] MEDS ORDERED: FLUTICASONE FUROATE-VILANTEROL 200/25 MCG INH INH SCH (12:00)
[2017-05-20] MEDS: FLUTICASONE FUROATE-VILANTEROL 200/25 MCG INH INH SCH (12:36)
--- NOTE | 2017-05-20 17:02 | Hospitalist Progress Note ---
Hospitalist Progress Note Date of Service May 20, 2017. (Sia Ceja CRNP) Subjective Pt evaluation today including: conversation w/ patient, conversation w/ family , physical exam, chart review, review of inpatient medication list Voiding: no voiding problems Mr. Orr continues to be sob with dry cough. He does not have chest pain. ROS Constitutional: no chills, aches, sweats or fever Respiratory: see HPI Cardiac: no chest pain, palpitations, edema, orthopnea or lightheadedness GI: no abdominal pain, nausea, vomiting, diarrhea or constipation : no dysuria or hesitancy Extremities: no joint pain or weakness Skin: no rash All other systems reviewed and negative (Sia Ceja CRNP) Medications Medications Administered Medications (Trade) Dose Ordered Sig/Johnna Route Start Time Stop Time Status Last Admin Dose Admin Albuterol/ Ipratropium (Duoneb) 3 ml QIDR INH 05/19/17 20:00 06/18/17 19:59 05/20/17 15:17 3 ML Guaifenesin (Mucinex Contr Rel Tab) 600 mg Q12 PO 05/19/17 21:00 06/18/17 20:59 05/20/17 07:39 600 MG Vancomycin HCl 1500 mg/Sodium Chloride 530 ml @ 195 mls/hr Q10H IV 05/20/17 06:00 05/27/17 05:59 05/20/17 15:46 195 MLS/HR Vancomycin HCl 2500 mg/Sodium Chloride 550 ml @ 200 mls/hr NOW ONCE IV 05/19/17 20:00 05/19/17 22:44 DC 05/19/17 20:21 200 MLS/HR Sodium Chloride 1,000 ml @ 80 mls/hr [id number] IV 05/19/17 20:30 05/20/17 10:08 DC 05/20/17 07:39 80 MLS/HR Fluticasone/ Vilanterol (Breo Ellipta 200-25 Mcg/Inh) 1 inha QAM INH 05/20/17 12:00 06/19/17 11:59 05/20/17 12:36 1 INHA (Sia Ceja CRNP) Objective Vital Signs Date Time Temp Pulse Resp B/P (MAP) Pulse Ox O2 Delivery O2 Flow Rate FiO2 05/20/17 15:18 67 16 97 Room Air 05/20/17 14:44 36.7 68 18 131/78 (95) 98 05/20/17 11:23 70 14 98 Room Air 05/20/17 08:00 Room Air 05/20/17 07:44 36.3 60 16 156/71 (99) 97 Room Air 05/20/17 07:11 66 14 98 Room Air 05/20/17 01:28 36.7 61 20 116/73 (87) 95 Room Air 05/20/17 00:00 Room Air 05/19/17 20:59 81 14 97 Room Air 05/19/17 20:45 Room Air 05/19/17 18:27 36.4 83 18 136/86 95 Room Air (Sia Ceja CRNP) Physical Exam Notes: General: no distress Eyes: normal inspection, PERLL Respiratory: chest non tender, clear to auscultation, normal breath sounds, no respiratory distress, no accessory muscle use Cardiac: regular rate and rhythm, no rub or gallop, no murmur, no edema, no jvd GI/: active bowel sounds, no abd pain or tenderness, soft, non distended Extremities: normal range of motion, normal strength, non tender Neuro/Psych: alert and oriented x 3, normal mood and affect Skin: normal color, dry (Sia Ceja CRNP) Laboratory Results Last 24 Hours Test 05/19/17 19:19 05/19/17 23:40 05/20/17 06:23 05/20/17 11:59 White Blood Count 8.55 K/uL 5.67 K/uL Red Blood Count 5.26 M/uL 4.86 M/uL Hemoglobin 15.8 g/dL 14.6 g/dL Hematocrit 43.8 % 41.0 % Mean Corpuscular Volume 83.3 fL 84.4 fL Mean Corpuscular Hemoglobin 30.0 pg 30.0 pg Mean Corpuscular Hemoglobin Concent 36.1 g/dl 35.6 g/dl Platelet Count 175 K/uL 144 K/uL Mean Platelet Volume 10.0 fL 9.8 fL Neutrophils (%) (Auto) 58.9 % 51.2 % Lymphocytes (%) (Auto) 32.0 % 38.1 % Monocytes (%) (Auto) 7.5 % 8.3 % Eosinophils (%) (Auto) 1.2 % 1.8 % Basophils (%) (Auto) 0.2 % 0.4 % Neutrophils # (Auto) 5.03 K/uL 2.91 K/uL Lymphocytes # (Auto) 2.74 K/uL 2.16 K/uL Monocytes # (Auto) 0.64 K/uL 0.47 K/uL Eosinophils # (Auto) 0.10 K/uL 0.10 K/uL Basophils # (Auto) 0.02 K/uL 0.02 K/uL RDW Standard Deviation 36.8 fL 37.4 fL RDW Coefficient of Variation 12.2 % 12.3 % Immature Granulocyte % (Auto) 0.2 % 0.2 % Immature Granulocyte # (Auto) 0.02 K/uL 0.01 K/uL Sodium Level 138 mmol/L 139 mmol/L Potassium Level 4.3 mmol/L 4.2 mmol/L Chloride Level 104 mmol/L 108 mmol/L Carbon Dioxide Level 26 mmol/L 23 mmol/L Anion Gap 8.0 mmol/L 8.0 mmol/L Blood Urea Nitrogen 20 mg/dl 16 mg/dl Creatinine 1.41 mg/dl 1.00 mg/dl Est Creatinine Clear Calc Drug Dose 67.3 ml/min 94.9 ml/min Estimated GFR () 63.6 96.4 Estimated GFR (Non- 54.9 83.2 BUN/Creatinine Ratio 13.8 15.8 Random Glucose 150 mg/dl 103 mg/dl Lactic Acid Level 2.0 mmol/L Calcium Level 9.1 mg/dl 8.3 mg/dl Magnesium Level 2.3 mg/dl 2.4 mg/dl Hepatitis C Antibody Screen NEG Urine Color YELLOW Urine Appearance CLEAR Urine pH 6.5 Urine Specific Dinosaur 1.008 Urine Protein NEG Urine Glucose (UA) NEG Urine Ketones NEG Urine Occult Blood NEG Urine Nitrite NEG Urine Bilirubin NEG Urine Urobilinogen NEG Urine Leukocyte Esterase NEG D-Dimer 190 ug/L FEU Test 05/20/17 16:56 (Sia Ceja, ASHLEY) Assessment and Plan This is a 56 yo M with 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 Maynard's office with worsening respiratory symptoms after bronchoscopy was performed on 05/08, while on antibiotic therapy with Bactrim. MRSA pneumonia - s/p bronchoscopy completed 05/08/[address] Maynard Bronchial washings positive for MRSA staph aureus which was sensitive to Bactrim, vancomycin, rifampin. Negative for any yeast or hyphae. AFB negative. HSV negative. The patient was started on Bactrim on 05/11 -has completed 7 day course. - Blood cultures 2 pending, lactic acid wnl - Chest Xray neg for acute process - Continue IV Vanco - D- dimer wnl - Consult pulmonary - Consult infectious disease - Continue supportive care with duo nebs, O2, Mucinex, incentive spirometry. - Can continue Breo inhaler at this time - Check procalcitonin and trop Muscle Spasm - electrolytes wnl - improved today but continues to complain of heavy feeling DVT prophylaxis: Teds, SCDs, heparin subcu CODE STATUS: Full code Disposition: Patient from home, lives with his , [place] to assist with discharge planning (Sia Ceja ., ASHLEY) THREE DIMENSIONAL MAP MODELER Physician Supervision Note: I interviewed and examined the patient. Discussed with Sia Ceja THREE DIMENSIONAL MAP MODELER and agree with findings and plan as documented in the note. Any exceptions or clarifications are listed here: None Patient himself is frustrated that he remains breathless and his dyspnea on exertion I personally reviewed his outpatient records and cannot find any cardi workup such as an echocardiogram etc.ac patient states that many years ago when his father he did have stress test with Dr. Cavanaugh which was unremarkable and has had no chest pain although has significant dyspnea on exertion. Patient coughs with easily with exertion this is also big problem for him. Patient states that he does feel he is slightly worse after eating but does not have any complaints that are consistent with aspiration however he feels he may have some reflux disease. This also has not been worked up Patient's vital signs however are stable including him having no hypoxia rest His cardiac exam is regular with no murmurs clicks rubs or gallops his lungs have coarse breath sounds bilaterally with no wheezes but he does cough frequently during the exam his abdomen is normoactive bowel sounds soft nontender Subjective dyspnea and the patient recently treated for fungal lung infection and currently with concern for MRSA lung infection Pulmonary medicine and infectious disease are helping streamline his pulmonary regime is currently started on Solu-Medrol by myself given Pulmozyme to try to break up any mucus for ease of expectoration and have an echocardiogram pending Documented By: Ruy Easley (Ruy Easley M.D.)
[2017-05-20] MEDS: DORNASE ALFA 2.5 ML AMP INH SCH (20:08)
[2017-05-20] MEDS: METHYLPREDNISOLONE IV 40 MG in SYRINGE 0 ML IV SCH (20:41)
[2017-05-20] MEDS: PANTOprazole SOD 40 MG TAB PO SCH (20:41)
[2017-05-21 00:04] VITALS: BP 132/66; PULSE 69; TEMP 36.8; O2SAT 94
[2017-05-21] MEDS: VANCOMYCIN INJ 1,500 MG in SODIUM CHLORIDE 0.9% 500ML 500 ML IV SCH ×3 (02:11→22:18)
[2017-05-21 05:52] LABS: BASO % 0.1 %; BASO ABS # 0.01 K/uL (0-0.2); HEMATOCRIT 41.3 % (42-52); HEMOGLOBIN 14.9 g/dL (14.0-18.0); IG# 0.02 K/uL (0.00-0.02); LYMPH % 14.6 %; LYMPH ABS # 1.12 K/uL (1.2-3.4); MEAN CELL VOLUME 83.8 fL (80-100); MEAN CORPUSCULAR HEMOGLOBIN 30.2 pg (25-34); MEAN CORPUSCULAR HGB CONC 36.1 g/dl (32-36); MEAN PLATELET VOLUME 9.9 fL (7.4-10.4); MONO % 1.6 %; MONO ABS # 0.12 K/uL (0.11-0.59); NEUT % 83.4 %; NEUT ABS # 6.38 K/uL (1.4-6.5); PLATELET COUNT 168 K/uL (130-400); RED CELL DISTRIBUTION WIDTH CV 12.3 % (11.5-14.5); RED CELL DISTRIBUTION WIDTH SD 37.5 fL (36.4-46.3); WHITE BLOOD COUNT 7.65 K/uL (4.8-10.8)
[2017-05-21] MEDS: HEPARIN SOD 5000 UNIT/0.5 ML CARP SQ SCH ×3 (06:00→20:20)
[2017-05-21 06:42] LABS: CALCIUM 8.8 mg/dl (8.5-10.1); POTASSIUM 4.6 mmol/L (3.5-5.1)
[2017-05-21] MEDS: DORNASE ALFA 2.5 ML AMP INH SCH (07:07)
[2017-05-21] MEDS: ALBUT/IPRATROP 3MG/0.5MG NEB 3 ML VIAL INH SCH ×4 (07:07→18:46)
[2017-05-21 07:09] VITALS: PULSE 70; O2SAT 97
[2017-05-21] MEDS: FLUTICASONE FUROATE-VILANTEROL 200/25 MCG INH INH SCH (08:57)
[2017-05-21] MEDS: METHYLPREDNISOLONE IV 40 MG in SYRINGE 0 ML IV SCH (08:59)
[2017-05-21] MEDS: PANTOprazole SOD 40 MG TAB PO SCH ×2 (08:59→20:05)
[2017-05-21] MEDS: GUAIFENESIN 600 MG TABCR PO SCH ×2 (09:00→20:05)
[2017-05-21 10:00] VITALS: BP 125/75; PULSE 76; TEMP 36.5; O2SAT 97
[2017-05-21 11:30] VITALS: PULSE 78; O2SAT 94
[2017-05-21] MEDS ORDERED: VANCOMYCIN TROUGH ONE (11:30)
--- NOTE | 2017-05-21 13:23 | Pharmacy Progress Note ---
Pharmacy Abx Dose Short Note Date of Service May 21, 2017. Assessment & Plan Assessment 56 year old male receiving IV Vancomycin for treatment of possible MRSA Pneumonia, history of recurrent MRSA infection. Pt with several months of worsening cough and SOB, now accompanied by severe myalgias. Chest Xray shows no obvious explanation for severe SOB. Possibly noninfectious process. Day # 3 of antimicrobial therapy. Plan Vancomycin * Trough level of 15.4 mcg/mL is therapeutic * Continue dose of Vancomycin 1500 mg IV every 10 hours * Goal trough level for MRSA Pneumonia : 15 to 20 mcg/mL * Will order further levels if antibiotic continued. Pharmacy will continue to follow and will adjust dose/frequency as necessary. Thank you.
--- NOTE | 2017-05-21 14:23 | Hospitalist Progress Note ---
Hospitalist Progress Note Date of Service May 21, 2017. (Sia Ceja .ASHLEY) Subjective Pt evaluation today including: conversation w/ patient, conversation w/ family , physical exam, chart review, lab review, review of studies, conversation w/ software developer consultant, review of inpatient medication list Voiding: no voiding problems Mr. Orr feels worse today. He continues to be sob with a cough. It is worse with laying down and he does get a "gurgly" feeling/noise in his throat at night that precedes coughing. ROS Constitutional: no chills, aches, sweats or fever Respiratory: see HPI Cardiac: no chest pain, palpitations, edema, orthopnea or lightheadedness GI: no abdominal pain, nausea, vomiting, diarrhea or constipation : no dysuria or hesitancy Extremities: no joint pain or weakness Skin: no rash All other systems reviewed and negative (Sia Ceja .ASHLEY) Medications Medications Administered Medications (Trade) Dose Ordered Sig/Johnna Route Start Time Stop Time Status Last Admin Dose Admin Albuterol/ Ipratropium (Duoneb) 3 ml QIDR INH 05/19/17 20:00 06/18/17 19:59 05/21/17 11:30 3 ML Guaifenesin (Mucinex Contr Rel Tab) 600 mg Q12 PO 05/19/17 21:00 06/18/17 20:59 05/21/17 09:00 600 MG Vancomycin HCl 1500 mg/Sodium Chloride 530 ml @ 195 mls/hr Q10H IV 05/20/17 06:00 05/27/17 05:59 05/21/17 11:59 195 MLS/HR Vancomycin HCl 2500 mg/Sodium Chloride 550 ml @ 200 mls/hr NOW ONCE IV 05/19/17 20:00 05/19/17 22:44 DC 05/19/17 20:21 200 MLS/HR Sodium Chloride 1,000 ml @ 80 mls/hr [id number] IV 05/19/17 20:30 05/20/17 10:08 DC 05/20/17 07:39 80 MLS/HR Fluticasone/ Vilanterol (Breo Ellipta 200-25 Mcg/Inh) 1 inha QAM INH 05/20/17 12:00 06/19/17 11:59 05/21/17 08:57 1 INHA Methylprednisolone Sodium Succinate 40 mg/Syringe 0.64 ml @ 1.5 mls/min Q12 IV 05/20/17 21:00 06/19/17 20:59 05/21/17 08:59 1.5 MLS/MIN Dornase Dillon (Pulmozyme Inhalation Soln 2.5ml Amp) 2.5 ml BIDR INH 05/20/17 20:00 06/19/17 19:59 05/21/17 07:07 2.5 ML Pantoprazole Sodium (Protonix Tab) 40 mg BID PO 05/20/17 20:00 05/24/17 19:59 05/21/17 08:59 40 MG (Sia Ceja CRNP) Objective Vital Signs Date Time Temp Pulse Resp B/P (MAP) Pulse Ox O2 Delivery O2 Flow Rate FiO2 05/21/17 11:30 78 16 94 Room Air 05/21/17 10:00 Room Air 05/21/17 10:00 36.5 76 20 125/75 (92) 97 Room Air 05/21/17 07:48 Room Air 05/21/17 07:09 70 16 97 Room Air 05/21/17 00:15 Room Air 05/21/17 00:04 36.8 69 20 132/66 (88) 94 Room Air 05/20/17 20:08 65 16 98 Room Air 05/20/17 16:00 97 Room Air 05/20/17 15:18 67 16 97 Room Air 05/20/17 14:44 36.7 68 18 131/78 (95) 98 (Sia Ceja CRNP) Physical Exam Notes: General: no distress Eyes: normal inspection, PERLL Respiratory: chest non tender, clear to auscultation, normal breath sounds, no respiratory distress, no accessory muscle use Cardiac: irregular rate and rhythm, no rub or gallop, no murmur, no edema, no jvd GI/: active bowel sounds, no abd pain or tenderness, soft, non distended Extremities: normal range of motion, normal strength, non tender Neuro/Psych: alert and oriented x 3, normal mood and affect Skin: normal color, dry (Sia Ceja CRNP) Laboratory Results Last 24 Hours Test 05/20/17 17:10 05/21/17 05:27 05/21/17 10:16 05/21/17 11:35 Troponin I < 0.015 ng/ml Procalcitonin < 0.05 ng/ml White Blood Count 7.65 K/uL Red Blood Count 4.93 M/uL Hemoglobin 14.9 g/dL Hematocrit 41.3 % Mean Corpuscular Volume 83.8 fL Mean Corpuscular Hemoglobin 30.2 pg Mean Corpuscular Hemoglobin Concent 36.1 g/dl Platelet Count 168 K/uL Mean Platelet Volume 9.9 fL Neutrophils (%) (Auto) 83.4 % Lymphocytes (%) (Auto) 14.6 % Monocytes (%) (Auto) 1.6 % Eosinophils (%) (Auto) 0.0 % Basophils (%) (Auto) 0.1 % Neutrophils # (Auto) 6.38 K/uL Lymphocytes # (Auto) 1.12 K/uL Monocytes # (Auto) 0.12 K/uL Eosinophils # (Auto) 0.00 K/uL Basophils # (Auto) 0.01 K/uL RDW Standard Deviation 37.5 fL RDW Coefficient of Variation 12.3 % Immature Granulocyte % (Auto) 0.3 % Immature Granulocyte # (Auto) 0.02 K/uL Sodium Level 138 mmol/L Potassium Level 4.6 mmol/L Chloride Level 109 mmol/L Carbon Dioxide Level 21 mmol/L Anion Gap 8.0 mmol/L Blood Urea Nitrogen 12 mg/dl Creatinine 1.00 mg/dl Est Creatinine Clear Calc Drug Dose 94.9 ml/min Estimated GFR () 96.4 Estimated GFR (Non- 83.2 BUN/Creatinine Ratio 12.3 Random Glucose 153 mg/dl Calcium Level 8.8 mg/dl Erythrocyte Sedimentation Rate 2 mm/hr Total Creatine Kinase 134 U/L Immunoglobulin G 731.0 mg/dL Immunoglobulin A 150.0 mg/dL Immunoglobulin M 50.5 mg/dL Vancomycin Level Trough 15.4 mcg/ml (Sia Ceja CRNP) Assessment and Plan This is a 56 yo M with 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 Maynard's office with worsening respiratory symptoms after bronchoscopy was performed on 05/08, while on antibiotic therapy with Bactrim. SOB d/t possible chemical pneumonitis from GERD vs inflammatory disorder - s/p bronchoscopy completed 05/08/[address] Maynard Bronchial washings positive for MRSA staph aureus which was sensitive to Bactrim, vancomycin, rifampin. Negative for any yeast or hyphae. AFB negative. HSV negative. The patient was started on Bactrim on 05/11 -has completed 7 day course. - Blood cultures 2 ngtd, lactic acid wnl - Chest Xray neg for acute process - Continue IV Vanco per ID rec - D- dimer wnl - Consult pulmonary - discussed case with Dr. Taylor - he feels this is likely GERD related cough - recommends EGD/PPI however in running it by GI they felt that the patient should be started on PPI and see if cough improves rather than sending him for EGD - continue bid protonix - Also per pulmonary recommendation, patient should have sleep study after discharge - Consulted infectious disease - Continue supportive care with duo nebs, O2, Mucinex, incentive spirometry. - Can continue Breo inhaler at this time - discontinue Pulmozyme as it did not provide relief - Procalcitonin, ddimer, trop, ESR all wnl Muscle Spasm - electrolytes wnl - improved DVT prophylaxis: Teds, SCDs, heparin subcu CODE STATUS: Full code Disposition: Patient from home, lives with his , [place] to assist with discharge planning (Sia Ceja .ASHLEY) LOGGING ENGINEER Physician Supervision Note: I interviewed and examined the patient. Discussed with Sia Ceja LOGGING ENGINEER and agree with findings and plan as documented in the note. Any exceptions or clarifications are listed here: None This patient felt slightly worse on Pulmozyme however this afternoon he feels better this may be related to the steroids we also did begin him on a PPI he feels a pending echo His vitals are stable Pulmonary consultation is also considering the fact that this could be chronic reflux with pneumonitis associated with it there is some changes of bronchiectasis seen on this CT scan we will initiate twice daily Protonix encourage sitting upright when sleeping frequent small meals and consider endoscopy to evaluate possibility of chronic esophagitis and other changes that could be subsequent to frequent reflux Patient is were educated the bedside they are in agreement with this plan Documented By: Ruy Easley (Ruy Easley M.D.)
[2017-05-21 15:28] VITALS: BP 136/61; PULSE 66; PULSE 85; TEMP 36.4; O2SAT 96
[2017-05-21] MEDS: METOCLOPRAMIDE HCL 10 MG TAB PO SCH ×2 (16:47→20:05)
--- NOTE | 2017-05-21 17:51 | ECHOCARDIOGRAM REPORT ---
*NOTICE TO RECEIVING [employer]Y This information is strictly Confidential and protected under [place] law. [place] law prohibits you from making any further disclosure of this information unless further disclosure is expressly permitted by the written consent of the person to whom it pertains or is authorized by law. A general authorization for the release of medical or other information is not sufficient for this purpose. Hospital accepts no responsibility if the information is made available to any other person, INCLUDING THE PATIENT. Interpretation Summary * Name: LATANYA CROCKER Study Date: 05/21/2017 07:37 AM BP: 132/66 mmHg * Patient Location: [id number]\E414\S\1 HR: 70 * : 1960 (M/d/yyyy) Gender: Male Height: 70 in * Age: 56 yrs Ethnicity: CA Weight: 212 lb * Ordering Physician: Ruy Easley * Referring Physician: Gatito Maynard * Performed By: Charlee Machuca RDCS * * Reason For Study: Valvular Heart Disease * BSA: 2.1 m2 * -- Conclusions -- * 1. Normal LV size, mild concentric LVH. * 2. Normal LV function. LVEF 60-65%. No regional wall motion abnormalities. * 3. Normal RV size and function. * 4. Trace AI, trace MR, trace PI. * 5. No prior studies for comparison. Procedure Details * A complete two-dimensional transthoracic echocardiogram was performed (2D, M-mode, Doppler and color flow Doppler). Left Ventricle * The left ventricle is grossly normal size. * There is mild concentric left ventricular hypertrophy. * Ejection Fraction = 60-65%. * No regional wall motion abnormalities noted. Right Ventricle * The right ventricle is grossly normal size. * The right ventricular systolic function is normal as assessed by tricuspid annular plane systolic excursion (TAPSE) (normal >1.5 cm). Atria * The left atrial size is normal. * Right atrial size is normal. * No ASD detected; PFO is not assessed. Mitral Valve * The mitral valve is grossly normal. * There is no mitral valve stenosis. * There is trace mitral regurgitation. Tricuspid Valve * The tricuspid valve is not well visualized, but is grossly normal. * Significant tricuspid regurgitation is absent. Aortic Valve * The aortic valve opens well. * The aortic valve is trileaflet. * No hemodynamically significant valvular aortic stenosis. * Trace aortic regurgitation. Pulmonic Valve * The pulmonary valve is inadequately visualized, but the Doppler data is adequate for interpretation. * There is no pulmonic valvular stenosis. * Trace pulmonic valvular regurgitation. Great Vessels * The aortic root and proximal ascending aorta are normal sized. Pericardium/Pleural * There is no pericardial effusion. MMode 2D Measurements and Calculations IVSd 1.1 cm IVSs 1.3 cm LVIDd 4.6 cm LVIDs 2.5 cm LVPWd 1.2 cm LVPWs 2.0 cm IVS/LVPW 0.88 FS 46.1 % EDV(Teich) 98.2 ml ESV(Teich) 22.0 ml EF(Teich) 77.6 % EDV(cubed) 98.4 ml ESV(cubed) 15.4 ml EF(cubed) 84.4 % % IVS thick 18.9 % % LVPW thick 62.0 % LV mass(C)d 198.2 grams LV mass(C)dI 92.6 grams/m\S\2 LV mass(C)s 150.0 grams LV mass(C)sI 70.1 grams/m\S\2 SV(Teich) 76.2 ml SI(Teich) 35.6 ml/m\S\2 SV(cubed) 83.1 ml SI(cubed) 38.8 ml/m\S\2 Ao root diam 3.1 cm Ao root area 7.7 cm\S\2 ACS 2.2 cm LA dimension 3.0 cm LA/Ao 0.97 LVAd ap4 34.8 cm\S\2 LVLd ap4 8.2 cm EDV(MOD-sp4) 126.5 ml EDV(sp4-el) 124.8 ml LVAs ap4 17.6 cm\S\2 LVLs ap4 6.4 cm ESV(MOD-sp4) 45.6 ml ESV(sp4-el) 40.9 ml EF(MOD-sp4) 64.0 % EF(sp4-el) 67.2 % LVAd ap2 32.7 cm\S\2 LVLd ap2 8.5 cm EDV(MOD-sp2) 114.0 ml EDV(sp2-el) 107.1 ml LVAs ap2 15.5 cm\S\2 LVLs ap2 6.5 cm ESV(MOD-sp2) 36.1 ml ESV(sp2-el) 31.5 ml EF(MOD-sp2) 68.3 % EF(sp2-el) 70.6 % LVLd %diff 3.0 % EDV(MOD-bp) 121.4 ml LVLs %diff 0.54 % ESV(MOD-bp) 40.7 ml EF(MOD-bp) 66.5 % SV(MOD-sp4) 81.0 ml SI(MOD-sp4) 37.8 ml/m\S\2 SV(MOD-sp2) 77.9 ml SI(MOD-sp2) 36.4 ml/m\S\2 SV(MOD-bp) 80.7 ml SI(MOD-bp) 37.7 ml/m\S\2 SV(sp4-el) 83.9 ml SI(sp4-el) 39.2 ml/m\S\2 SV(sp2-el) 75.7 ml SI(sp2-el) 35.4 ml/m\S\2 Doppler Measurements and Calculations MV E max uriel 97.5 cm/sec MV A max uriel 82.9 cm/sec MV E/A 1.2 MV dec time 0.20 sec Ao V2 max 146.6 cm/sec Ao max PG 8.6 mmHg Ao max PG (full) 3.8 mmHg LV V1 max PG 4.8 mmHg LV V1 max 109.1 cm/sec PA V2 max 196.1 cm/sec PA max PG 15.4 mmHg PI max uriel 170.4 cm/sec PI max PG 11.7 mmHg PI dec slope 226.3 cm/sec\S\2 PI P1/2t 220.5 msec
[2017-05-21 18:49] VITALS: PULSE 69; O2SAT 96
--- NOTE | 2017-05-21 19:33 | Infectious Disease Progress Nt ---
Progress Note Date of Service May 21, 2017. Subjective Pt evaluation today including: conversation w/ patient, physical exam, chart review, lab review, review of studies, conversation w/ cloud consultant, review of inpatient medication list Patient states cough is slightly worse today. Remains afebrile. Cultures remain negative to date. All Other Systems: Reviewed and Negative Medications Current Inpatient Medications Medications (Trade) Dose Ordered Sig/Johnna Route Start Time Stop Time Status Last Admin Dose Admin Heparin Sodium (Porcine) (Heparin Sq 5000 Unit/0.5ml) 5,000 unit Q8H SQ 05/19/17 22:00 06/18/17 21:59 Acetaminophen (Tylenol Tab) 650 mg Q4H PRN PO 05/19/17 18:30 06/18/17 18:29 Polyethylene (Miralax Powder Packet) 17 gm DAILY PRN PO 05/19/17 19:30 06/18/17 19:29 Ondansetron HCl (Zofran Inj) 4 mg Q6H PRN IV 05/19/17 18:30 06/18/17 18:29 Albuterol/ Ipratropium (Duoneb) 3 ml QIDR INH 05/19/17 20:00 06/18/17 19:59 05/21/17 18:46 3 ML Guaifenesin (Mucinex Contr Rel Tab) 600 mg Q12 PO 05/19/17 21:00 06/18/17 20:59 05/21/17 09:00 600 MG Vancomycin HCl 1500 mg/Sodium Chloride 530 ml @ 195 mls/hr Q10H IV 05/20/17 06:00 05/27/17 05:59 05/21/17 11:59 195 MLS/HR Miscellaneous Information (Consult) 1 ea UD PRN N/A 05/19/17 19:15 06/18/17 19:14 Fluticasone/ Vilanterol (Breo Ellipta 200-25 Mcg/Inh) 1 inha QAM INH 05/20/17 12:00 06/19/17 11:59 05/21/17 08:57 1 INHA Pantoprazole Sodium (Protonix Tab) 40 mg BID PO 05/20/17 20:00 05/24/17 19:59 05/21/17 08:59 40 MG Metoclopramide HCl (Reglan Tab) 10 mg ACHS PO 05/21/17 16:30 06/20/17 16:29 05/21/17 16:47 10 MG Objective Vital Signs Date Time Temp Pulse Resp B/P (MAP) Pulse Ox O2 Delivery O2 Flow Rate FiO2 05/21/17 18:49 69 16 96 Room Air 05/21/17 15:28 66 16 96 Room Air 05/21/17 15:28 36.4 85 16 136/61 (86) 96 Room Air 05/21/17 15:12 Room Air 05/21/17 11:30 78 16 94 Room Air 05/21/17 10:00 Room Air 05/21/17 10:00 36.5 76 20 125/75 (92) 97 Room Air 05/21/17 07:48 Room Air 05/21/17 07:09 70 16 97 Room Air 05/21/17 00:15 Room Air 05/21/17 00:04 36.8 69 20 132/66 (88) 94 Room Air 05/20/17 20:08 65 16 98 Room Air Physical Exam General Appearance: WD/WN, no apparent distress Eyes: normal inspection, EOMI, sclerae normal ENT: normal ENT inspection, hearing grossly normal, pharynx normal Neck: supple, no adenopathy, thyroid normal, trachea midline Respiratory/Chest: chest non-tender, lungs clear, normal breath sounds, no respiratory distress Cardiovascular: regular rate, rhythm, no gallop, no murmur Abdomen: normal bowel sounds, non tender, soft, no organomegaly Extremities: non-tender, no calf tenderness, normal capillary refill Neurologic/Psychiatric: alert, oriented x 3 Skin: normal color, warm/dry, no rash Lymphatic: no adenopathy Laboratory Results RUN DATE: 05/21/17 [facility] LAB PAGE 1 RUN TIME: 657 Specimen Inquiry PATIENT: LATANYA CROCKER LOC: [facility] [place] # : [id number] AGE/SX: 56/M ROOM: E414 REG : 05/19/[address]: Meg Beauchamp DO : 1960 BED: 1 DIS : STATUS: ADM IN TLOC: SPEC #: [id number] VERN: 05/19/17 STATUS: RES REQ #: [id number] RECD: 05/19/[address]: Shanthi Muhammad PA-C SOURCE: BLOOD ENTR: 05/19/[address] [facility] [address]: Gatito Ward M.D. SPDC: Rinku Emerson MD, Jeffrey A., M.D. Stevens, Jessica A., DO ORDERED: BLOOD CULTURE Procedure Result Verified Site BLD CULT Preliminary 05/21/17-0658 NO GROWTH TO DATE. Last 24 Hours Test 05/21/17 05:27 05/21/17 10:16 05/21/17 11:35 White Blood Count 7.65 K/uL Red Blood Count 4.93 M/uL Hemoglobin 14.9 g/dL Hematocrit 41.3 % Mean Corpuscular Volume 83.8 fL Mean Corpuscular Hemoglobin 30.2 pg Mean Corpuscular Hemoglobin Concent 36.1 g/dl Platelet Count 168 K/uL Mean Platelet Volume 9.9 fL Neutrophils (%) (Auto) 83.4 % Lymphocytes (%) (Auto) 14.6 % Monocytes (%) (Auto) 1.6 % Eosinophils (%) (Auto) 0.0 % Basophils (%) (Auto) 0.1 % Neutrophils # (Auto) 6.38 K/uL Lymphocytes # (Auto) 1.12 K/uL Monocytes # (Auto) 0.12 K/uL Eosinophils # (Auto) 0.00 K/uL Basophils # (Auto) 0.01 K/uL RDW Standard Deviation 37.5 fL RDW Coefficient of Variation 12.3 % Immature Granulocyte % (Auto) 0.3 % Immature Granulocyte # (Auto) 0.02 K/uL Sodium Level 138 mmol/L Potassium Level 4.6 mmol/L Chloride Level 109 mmol/L Carbon Dioxide Level 21 mmol/L Anion Gap 8.0 mmol/L Blood Urea Nitrogen 12 mg/dl Creatinine 1.00 mg/dl Est Creatinine Clear Calc Drug Dose 94.9 ml/min Estimated GFR () 96.4 Estimated GFR (Non- 83.2 BUN/Creatinine Ratio 12.3 Random Glucose 153 mg/dl Calcium Level 8.8 mg/dl Erythrocyte Sedimentation Rate 2 mm/hr Total Creatine Kinase 134 U/L Immunoglobulin G 731.0 mg/dL Immunoglobulin A 150.0 mg/dL Immunoglobulin M 50.5 mg/dL Vancomycin Level Trough 15.4 mcg/ml Assessment and Plan 56-year-old male with history of recurrent MRSA infection, now with several months of worsening cough and shortness of breath, now accompanied by severe myalgias. Chest x-ray shows no obvious explanation for severe shortness of breath. I am concerned about the possibility of noninfectious process such as vasculitic/autoimmune/collagen vascular disease. For now, patient will be continued on antibiotics, but additional workup for above possibilities has been ordered. Doubt that Lyme disease is playing a role in this patient. Will discuss with all involved. Will follow.
--- NOTE | 2017-05-21 19:39 | Pulmonary Consultation ---
History General Date of Service: May 21, 2017. 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 The patient did have also a recent infection in 2013 with MRSA in the right axillary area responded also to antibiotics. The patient presented to my colleague Dr. Kaur with persistent cough that has been worsening since November and gotten even worse February. The patient did not have any chest pain with it. The patient noted that the shortness of breath has been even limiting his usual activity where he likes to walk in the [place] and go hunting. Recently his activity has been less than 100 yards. He could not even walk a mile where he used to do on a daily basis. 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 The patient denies any increased swelling in his lower extremities. He has been sleeping in recliner due to back surgery. He does not have any chest pain reported per se. His cough has been bothering him without sputum production. No hemoptysis was reported. According to the patient ever since February he could not recuperate or get better. The patient also was started on inhalers and underwent a bronchoscopy with Dr. Kaur without elevating cause of recurrence of fungal infection. Patient recently also treated for vestibular neuritis, he was concerned also about Lyme disease, he was tested for HIV and was negative twice. The patient's symptoms mainly appeared to be related to fatigue and muscular weakness accompanied also with cough and shortness of breath. No focal weakness was reported and there is no altered sensorium in the periphery. The patient was admitted to the hospital and started empirically on vancomycin. The patient did not have any sputum production. The patient has significantly disturbed sleep, sometimes he sleeps at 5 AM according to him. He does have fragmented sleep as well. He feels excessive daytime sleepiness and daytime fatigue. He takes naps between 7 PM and 10 PM as well. Historian: patient Onset: other (for 2 months) Severity: moderate Complaint Status: worsened Review of Systems Constitutional: reports: malaise, weakness, weight gain Eyes: reports: no symptoms ENT: reports: other (vertigo recently breath resolved.) Cardiovascular: denies: no symptoms, as stated in HPI, chest pain, chest pressure, chest tightness, diaphoresis, edema, intermittent claudication, orthopnea, palpitations, syncope, other Respiratory: reports: cough, shortness of breath Gastrointestinal: reports: no symptoms Genitourinary - Male: denies: no symptoms, as stated in HPI, dysuria, hematuria , hesitancy, impotence, itching, penile discharge, rash, urinary frequency, urinary incontinence, urinary retention, urinary urgency, other Musculoskeletal: reports: no symptoms, arthralgias, neck pain, back pain Integumentary: denies: no symptoms, as stated in HPI, rash, redness, warmth, itching, dryness, lesions, lumps, change in color, change in hair/nails, other Neurologic: denies: no symptoms, as stated in HPI, headache, dizziness, general weakness, focal weakness, numbness, tingling, paresthesia, pre-existing deficit, tremors, tics, vertigo, seizure, lethargy, memory loss, other Psychiatric: denies: no symptoms, as stated in HPI, anxiety, depression, suicidal ideation, homicidal ideation, visual hallucinations, auditory hallucinations, mood changes, alcohol abuse, drug abuse, other Past Medical History Past Medical History: Radiculopathy status post laminectomy lumbar and cervical. History of Aspergillus pneumonia resolved with minimal scarring left on the CAT scan. History of MRSA right axillary cellulitis. Past Surgical History: Laminectomy lumbar, bronchoscopy is multiple in the past. Family History FH: cancer Social History Hx Tobacco Use In Past Year?: No Smoking Status: Former Smoker Marital status: Housing status: lives with family Occupational Status: employed Immunizations History of Influenza Vaccine: No History of Tetanus Vaccine?: Yes History of Pneumococcal: Yes Pneumococcal Date: May 04, 2005 History of Hepatitis B Vaccine: No History of MDRO History of MDRO: Yes Type of MDRO: MRSA Allergies Coded Allergies: Lorazepam (Verified Allergy, Severe, "DANGEROUSLY RAISES BLOOD PRESSURE", 05/08/17) Midazolam (Verified Adverse Reaction, Severe, TACHYCARDIA, 05/08/17) Codeine (Verified Adverse Reaction, Mild, NAUSEA, 05/08/17) Silver (Unverified Adverse Reaction, Unknown, RASH,PAIN WITH SILVER ALGINATE, 05/19/17) developed pain with use of silver alginate Uncoded Allergies: SMOOTH MUSCLE (Allergy, Unknown, "SOME SORT OF MUSCLE RELAXER", 05/04/09) Current Medications Reported Home Medications Medications Dose Route/Sig Max Daily Dose Days Date Category Bactrim Ds 800MG/160MG (Trimethoprim/Sulfamethoxazole) Tab 1 Tab PO BID 05/19/17 Reported Breo Ellipta 200-25 Mcg/INH (Fluticasone Furoate-Vilanterol) 1 Inh Inh 200 Mcg DAILY 05/08/17 Reported Ipratropium [place] 0.5 Mg/2.5 Ml Nebu 1 Vial NEB QID 30 05/08/17 Reported Aleve (Naproxen) 220 Mg Tab 440 Mg PO PRN UD 10/05/16 Reported Physical Physical Exam Vital Signs: Date Time Temp Pulse Resp B/P (MAP) Pulse Ox O2 Delivery O2 Flow Rate FiO2 05/21/17 18:49 69 16 96 Room Air 05/21/17 15:28 66 16 96 Room Air 05/21/17 15:28 36.4 85 16 136/61 (86) 96 Room Air 05/21/17 15:12 Room Air 05/21/17 11:30 78 16 94 Room Air 05/21/17 10:00 Room Air 05/21/17 10:00 36.5 76 20 125/75 (92) 97 Room Air 05/21/17 07:48 Room Air 05/21/17 07:09 70 16 97 Room Air 05/21/17 00:15 Room Air 05/21/17 00:04 36.8 69 20 132/66 (88) 94 Room Air 05/20/17 20:08 65 16 98 Room Air General Appearance: NO APPARENT DISTRESS Head: NORMOCEPHALIC Eyes: PERRLA, EOMI ENT: NORMAL MOUTH EXAM Neck: NO TENDERNESS, TRACHEA MIDLINE, NO STRIDOR Respiratory: BREATH SOUNDS NORMAL, CLEAR TO AUSCULTATION Cardiovasular: REGULAR RATE/RHYTHM, NORMAL S1S2, NO M/G/R, NO MURMUR Abdomen: NON TENDER, NO GUARDING Upper Extremities: NO EDEMA Neuro: ALERT, ORIENTED x 3, NORMAL MOTOR EXAM Psychiatric: NORMAL AFFECT Diagnostics Labs Results Past 24 Hours Test 05/21/17 05:27 05/21/17 10:16 05/21/17 11:35 Range/Units White Blood Count 7.65 4.8-10.8 K/uL Red Blood Count 4.93 4.7-6.1 M/uL Hemoglobin 14.9 14.0-18.0 g/dL Hematocrit 41.3 42-52 % Mean Corpuscular Volume 83.8 80-100 fL Mean Corpuscular Hemoglobin 30.2 25-34 pg Mean Corpuscular Hemoglobin Concent 36.1 32-36 g/dl Platelet Count 168 130-400 K/uL Mean Platelet Volume 9.9 7.4-10.4 fL Neutrophils (%) (Auto) 83.4 % Lymphocytes (%) (Auto) 14.6 % Monocytes (%) (Auto) 1.6 % Eosinophils (%) (Auto) 0.0 % Basophils (%) (Auto) 0.1 % Neutrophils # (Auto) 6.38 1.4-6.5 K/uL Lymphocytes # (Auto) 1.12 1.2-3.4 K/uL Monocytes # (Auto) 0.12 0.11-0.59 K/uL Eosinophils # (Auto) 0.00 0-0.5 K/uL Basophils # (Auto) 0.01 0-0.2 K/uL RDW Standard Deviation 37.5 36.4-46.3 fL RDW Coefficient of Variation 12.3 11.5-14.5 % Immature Granulocyte % (Auto) 0.3 % Immature Granulocyte # (Auto) 0.02 0.00-0.02 K/uL Sodium Level 138 136-145 mmol/L Potassium Level 4.6 3.5-5.1 mmol/L Chloride Level 109 98-107 mmol/L Carbon Dioxide Level 21 21-32 mmol/L Anion Gap 8.0 3-11 mmol/L Blood Urea Nitrogen 12 7-18 mg/dl Creatinine 1.00 0.60-1.40 mg/dl Est Creatinine Clear Calc Drug Dose 94.9 ml/min Estimated GFR () 96.4 Estimated GFR (Non- 83.2 BUN/Creatinine Ratio 12.3 10-20 Random Glucose 153 70-99 mg/dl Calcium Level 8.8 8.5-10.1 mg/dl Erythrocyte Sedimentation Rate 2 0-14 mm/hr Total Creatine Kinase 134 39-308 U/L Immunoglobulin G 731.0 700-1600 mg/dL Immunoglobulin A 150.0 70-400 mg/dL Immunoglobulin M 50.5 40-230 mg/dL Vancomycin Level Trough 15.4 SEE COMMENT mcg/ml Diagnostic Radiology I have reviewed the CAT scan of the chest which revealed bronchiectasis, the patient does have small area of necrotizing patient in the left lower lobe, compared with the previous CAT scan it has been smaller in size. Pulmonary vascular congestion was noted. Echocardiogram revealed normal EF and no wall motion abnormality, no comment on the pulmonary artery pressure however the pulmonic valve and the tricuspid valve both are normal. Impression Assessment and Plan #1 bronchiectasis. This is likely as a result of chronic GERD that he had a continued to have persistent cough. #2 although the patient had bronchoscopy with negative Aspergillus and fungal septated hyphae, and does not rule out the possibility of recurrence. #3 significant GERD and this patient likely related to bronchiectasis over the years. #4 the patient does have also significant sleep fragmentation and poor sleep hygiene, his fatigue could represent only a sleep disorder. #5 MRSA colonization rather than infectious process in my opinion. Plan: #1 I will start the patient on aggressive treatment for GERD with PPI twice daily and Reglan. #2 consider esophageal manometry. #3 despite the fact the patient has negative bronchoscopy for fungal elements, I would obtained Aspergillus galactomannan antibodies. #4 the patient needs a dedicated sleep study once he leaves the hospital. #5 continue to monitor the left lower lobe necrotizing appearing lesion. #6 I could not have an access to the [place] pulmonary function test to determine whether the patient has restrictive pattern addition to obstructive pattern as well. #7 obtain IgG subclass 3 to rule out CVI D. #8 obtain IgE level to rule out ABPA. However, the patient is not asthmatic which makes it less likely. Thank you, will follow.
[2017-05-22] VITALS (9 sets, daily range): BP systolic 125–146; BP diastolic 60–76; PULSE 71–81; TEMP 36.3–36.7; O2SAT 95–98
[2017-05-22 06:22] LABS: BASO % 0.2 %; BASO ABS # 0.02 K/uL (0-0.2); EOS % 0.2 %; EOS ABS # 0.03 K/uL (0-0.5); HEMATOCRIT 40.2 % (42-52); HEMOGLOBIN 14.1 g/dL (14.0-18.0); IG# 0.03 K/uL (0.00-0.02); LYMPH ABS # 2.66 K/uL (1.2-3.4); MEAN CORPUSCULAR HEMOGLOBIN 29.8 pg (25-34); MEAN CORPUSCULAR HGB CONC 35.1 g/dl (32-36); MEAN PLATELET VOLUME 9.6 fL (7.4-10.4); MONO % 6.1 %; MONO ABS # 0.77 K/uL (0.11-0.59); NEUT % 72.3 %; NEUT ABS # 9.14 K/uL (1.4-6.5); PLATELET COUNT 166 K/uL (130-400); RED CELL DISTRIBUTION WIDTH CV 12.4 % (11.5-14.5); RED CELL DISTRIBUTION WIDTH SD 37.9 fL (36.4-46.3); WHITE BLOOD COUNT 12.65 K/uL (4.8-10.8)
[2017-05-22] MEDS: METOCLOPRAMIDE HCL 10 MG TAB PO SCH ×4 (06:35→20:57)
[2017-05-22] MEDS: HEPARIN SOD 5000 UNIT/0.5 ML CARP SQ SCH ×3 (06:35→20:58)
[2017-05-22] MEDS: ALBUT/IPRATROP 3MG/0.5MG NEB 3 ML VIAL INH SCH ×3 (07:25→19:17)
[2017-05-22] MEDS: GUAIFENESIN 600 MG TABCR PO SCH ×2 (09:18→20:57)
[2017-05-22] MEDS: PANTOprazole SOD 40 MG TAB PO SCH ×2 (09:19→20:57)
[2017-05-22] MEDS: FLUTICASONE FUROATE-VILANTEROL 200/25 MCG INH INH SCH (09:19)
[2017-05-22] MEDS: VANCOMYCIN INJ 1,500 MG in SODIUM CHLORIDE 0.9% 500ML 500 ML IV SCH ×2 (09:20→17:28)
--- NOTE | 2017-05-22 16:17 | Hospitalist Progress Note ---
Hospitalist Progress Note Date of Service May 22, 2017. (Sia Ceja CRNP) Subjective Pt evaluation today including: conversation w/ patient, physical exam, chart review, lab review, review of inpatient medication list Voiding: no voiding problems Mr. Hammers dyspnea has improved as well as his cough. He has less sob with ambulation as well ROS Constitutional: no chills, aches, sweats or fever Respiratory:see HPI Cardiac: no chest pain, palpitations, edema, orthopnea or lightheadedness GI: no abdominal pain, nausea, vomiting, diarrhea or constipation : no dysuria or hesitancy Extremities: no joint pain or weakness Skin: no rash All other systems reviewed and negative (Sia Ceja CRNP) Medications Medications Administered Medications (Trade) Dose Ordered Sig/Johnna Route Start Time Stop Time Status Last Admin Dose Admin Acetaminophen (Tylenol Tab) 650 mg Q4H PRN PO 05/19/17 18:30 06/18/17 18:29 05/22/17 11:36 650 MG Polyethylene (Miralax Powder Packet) 17 gm DAILY PRN PO 05/19/17 19:30 06/18/17 19:29 05/21/17 22:18 17 GM Albuterol/ Ipratropium (Duoneb) 3 ml QIDR INH 05/19/17 20:00 06/18/17 19:59 05/22/17 11:25 3 ML Guaifenesin (Mucinex Contr Rel Tab) 600 mg Q12 PO 05/19/17 21:00 06/18/17 20:59 05/22/17 09:18 600 MG Vancomycin HCl 1500 mg/Sodium Chloride 530 ml @ 195 mls/hr Q10H IV 05/20/17 06:00 05/27/17 05:59 05/22/17 09:20 195 MLS/HR Vancomycin HCl 2500 mg/Sodium Chloride 550 ml @ 200 mls/hr NOW ONCE IV 05/19/17 20:00 05/19/17 22:44 DC 05/19/17 20:21 200 MLS/HR Sodium Chloride 1,000 ml @ 80 mls/hr [id number] IV 05/19/17 20:30 05/20/17 10:08 DC 05/20/17 07:39 80 MLS/HR Fluticasone/ Vilanterol (Breo Ellipta 200-25 Mcg/Inh) 1 inha QAM INH 05/20/17 12:00 06/19/17 11:59 05/22/17 09:19 1 INHA Methylprednisolone Sodium Succinate 40 mg/Syringe 0.64 ml @ 1.5 mls/min Q12 IV 05/20/17 21:00 05/21/17 14:47 DC 05/21/17 08:59 1.5 MLS/MIN Dornase [place] (Pulmozyme Inhalation Soln 2.5ml Amp) 2.5 ml BIDR INH 05/20/17 20:00 05/21/17 14:24 DC 05/21/17 07:07 2.5 ML Pantoprazole Sodium (Protonix Tab) 40 mg BID PO 05/20/17 20:00 05/24/17 19:59 05/22/17 09:19 40 MG Metoclopramide HCl (Reglan Tab) 10 mg ACHS PO 05/21/17 16:30 06/20/17 16:29 05/22/17 11:34 10 MG (Sia Ceja, ASHLEY) Objective Vital Signs Date Time Temp Pulse Resp B/P (MAP) Pulse Ox O2 Delivery O2 Flow Rate FiO2 05/22/17 14:42 36.3 81 16 125/64 (84) 96 Room Air 05/22/17 13:27 36.7 81 14 146/74 (98) 97 Room Air 05/22/17 11:25 71 16 98 Room Air 05/22/17 09:20 Room Air 05/22/17 08:14 97 Room Air 05/22/17 07:51 36.3 71 16 133/76 (95) 97 Room Air 05/22/17 07:25 72 16 97 Room Air 05/22/17 00:52 Room Air 05/22/17 00:18 36.4 72 20 126/60 (82) 95 Room Air 05/21/17 18:49 69 16 96 Room Air (Sia Ceja CRNP) Physical Exam Notes: General: no distress Eyes: normal inspection, PERLL Respiratory: chest non tender, clear to auscultation, normal breath sounds, no respiratory distress, no accessory muscle use Cardiac: regular rate and rhythm, no rub or gallop, no murmur, no edema, no jvd GI/: active bowel sounds, no abd pain or tenderness, soft, non distended Extremities: normal range of motion, normal strength, non tender Neuro/Psych: alert and oriented x 3, normal mood and affect Skin: normal color, dry (Sia Ceja CRNP) Laboratory Results Last 24 Hours Test 05/22/17 05:50 05/22/17 11:28 White Blood Count 12.65 K/uL Red Blood Count 4.73 M/uL Hemoglobin 14.1 g/dL Hematocrit 40.2 % Mean Corpuscular Volume 85.0 fL Mean Corpuscular Hemoglobin 29.8 pg Mean Corpuscular Hemoglobin Concent 35.1 g/dl Platelet Count 166 K/uL Mean Platelet Volume 9.6 fL Neutrophils (%) (Auto) 72.3 % Lymphocytes (%) (Auto) 21.0 % Monocytes (%) (Auto) 6.1 % Eosinophils (%) (Auto) 0.2 % Basophils (%) (Auto) 0.2 % Neutrophils # (Auto) 9.14 K/uL Lymphocytes # (Auto) 2.66 K/uL Monocytes # (Auto) 0.77 K/uL Eosinophils # (Auto) 0.03 K/uL Basophils # (Auto) 0.02 K/uL RDW Standard Deviation 37.9 fL RDW Coefficient of Variation 12.4 % Immature Granulocyte % (Auto) 0.2 % Immature Granulocyte # (Auto) 0.03 K/uL (Sia Ceja CRNP) Assessment and Plan This is a 56 yo M with 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 Maynard's office with worsening respiratory symptoms after bronchoscopy was performed on 05/08, while on antibiotic therapy with Bactrim. SOB d/t possible chemical pneumonitis from GERD vs inflammatory disorder - s/p bronchoscopy completed 05/08/[address] Maynard Bronchial washings positive for MRSA staph aureus which was sensitive to Bactrim, vancomycin, rifampin. Negative for any yeast or hyphae. AFB negative. HSV negative. The patient was started on Bactrim on 05/11 -has completed 7 day course. - Blood cultures 2 ngtd, lactic acid wnl - Chest Xray neg for acute process - Continue IV Vanco per ID rec - Consult pulmonary - discussed case with Dr. Taylor - he feels this is likely GERD related cough - recommends EGD/PPI - consulted GI - continue bid ppi - Also per pulmonary recommendation, patient should have sleep study after discharge - Consulted infectious disease - appreciate rec on discontinuation of abx - Continue supportive care with duo nebs, O2, Mucinex, incentive spirometry. 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 Discussed with Sia Ceja NP and agree with findings and plan as documented in the note. Any exceptions or clarifications are listed here: None Patient feels much improved treating his reflux were awaiting a gastrointestinal consultation who chosen [facility] gastroenterology as the patient sees [facility] family medicine physician patient states he has not felt this good with regard to reduce chest pain and breathing ability and decreased cough for over a month Vital signs are stable he is not hypoxic Cardiac exam is regular lungs are clear he is to cough a fair bit with deep exertion he does not cough at all at this time with exception of when speaking Likely chronic reflux disease with aspiration pneumonitis improved with treatment with a PPI discussion with gastroenterology whether he should have an EGD as this may be chronic reflux with concern for possible Garcia's or other esophageal issues Documented By: Ruy Easley (Ruy Easley M.D.)
--- NOTE | 2017-05-22 16:48 | Pulmonology Progress Note ---
Pulmonary Progress Note Date of Service May 22, 2017. Attending Dr. Taylor Subjective The patient feels better, his shortness of breath and cough has improved, he did not have any chest pain, he does have pain between shoulder blades but is not radiating. Able to move his upper extremities without difficulty. Objective Physical exam on 05/22/2017, the patient is not short of breath, O2 sat is 95% on room air, scattered crackle bilaterally, abdomen is benign, heart examination S1 and S2 regular rate and rhythm, 5 over 5 strength in upper extremities, no edema. Serology still pending and no new imaging. Assessment & Plan #1 bronchiectasis. Unfortunately, this related to his chronic ongoing GERD. Continue PPI and Reglan, agree with GI workup including EGD. 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 Awaiting galactomannan level. #3 history of MRSA colonization. Further treatment per Dr. Emerson. #4 small area of necrotizing patient in the left lower lobe although decreasing in size, it needs to be followed. #5 please follow the results of serology. Including IgE, IgG subclass 3, galactomannan. #6 given the improvement of this patient symptomatically with the treatment of GERD, I will continue current treatment. #7 the patient will need long-acting beta agonist in the future, bronchiectasis is treated in a similar manner like COPD. With exception of frequent infections. #8 the patient is showing signs of sleep fragmentation, evaluation with a sleep study is necessary to avoid future vascular events. Thank you for your kind referral. We'll follow as needed. Data Medications: Current Inpatient Medications Medications (Trade) Dose Ordered Sig/Johnna Route Start Time Stop Time Status Last Admin Dose Admin Heparin Sodium (Porcine) (Heparin Sq 5000 Unit/0.5ml) 5,000 unit Q8H SQ 05/19/17 22:00 06/18/17 21:59 Acetaminophen (Tylenol Tab) 650 mg Q4H PRN PO 05/19/17 18:30 06/18/17 18:29 05/22/17 11:36 650 MG Polyethylene (Miralax Powder Packet) 17 gm DAILY PRN PO 05/19/17 19:30 06/18/17 19:29 05/21/17 22:18 17 GM Ondansetron HCl (Zofran Inj) 4 mg Q6H PRN IV 05/19/17 18:30 06/18/17 18:29 Albuterol/ Ipratropium (Duoneb) 3 ml QIDR INH 05/19/17 20:00 06/18/17 19:59 05/22/17 11:25 3 ML Guaifenesin (Mucinex Contr Rel Tab) 600 mg Q12 PO 05/19/17 21:00 06/18/17 20:59 05/22/17 09:18 600 MG Vancomycin HCl 1500 mg/Sodium Chloride 530 ml @ 195 mls/hr Q10H IV 05/20/17 06:00 05/27/17 05:59 05/22/17 09:20 195 MLS/HR Miscellaneous Information (Consult) 1 ea UD PRN N/A 05/19/17 19:15 06/18/17 19:14 Fluticasone/ Vilanterol (Breo Ellipta 200-25 Mcg/Inh) 1 inha QAM INH 05/20/17 12:00 06/19/17 11:59 05/22/17 09:19 1 INHA Pantoprazole Sodium (Protonix Tab) 40 mg BID PO 05/20/17 20:00 05/24/17 19:59 05/22/17 09:19 40 MG Metoclopramide HCl (Reglan Tab) 10 mg ACHS PO 05/21/17 16:30 06/20/17 16:29 05/22/17 11:34 10 MG I & O: 24-Hour Column 05/23/17 07:59 Intake Total 970 ml Balance 970 ml Vital Signs: Date Time Temp Pulse Resp B/P (MAP) Pulse Ox O2 Delivery O2 Flow Rate FiO2 05/22/17 14:42 36.3 81 16 125/64 (84) 96 Room Air 05/22/17 13:27 36.7 81 14 146/74 (98) 97 Room Air 05/22/17 11:25 71 16 98 Room Air 05/22/17 09:20 Room Air 05/22/17 08:14 97 Room Air 05/22/17 07:51 36.3 71 16 133/76 (95) 97 Room Air 05/22/17 07:25 72 16 97 Room Air 2/23/18 00:52 Room Air 05/22/17 00:18 36.4 72 20 126/60 (82) 95 Room Air 05/21/17 18:49 69 16 96 Room Air Laboratory Results: Last 24 Hours Test 05/22/17 05:50 05/22/17 11:28 White Blood Count 12.65 K/uL Red Blood Count 4.73 M/uL Hemoglobin 14.1 g/dL Hematocrit 40.2 % Mean Corpuscular Volume 85.0 fL Mean Corpuscular Hemoglobin 29.8 pg Mean Corpuscular Hemoglobin Concent 35.1 g/dl Platelet Count 166 K/uL Mean Platelet Volume 9.6 fL Neutrophils (%) (Auto) 72.3 % Lymphocytes (%) (Auto) 21.0 % Monocytes (%) (Auto) 6.1 % Eosinophils (%) (Auto) 0.2 % Basophils (%) (Auto) 0.2 % Neutrophils # (Auto) 9.14 K/uL Lymphocytes # (Auto) 2.66 K/uL Monocytes # (Auto) 0.77 K/uL Eosinophils # (Auto) 0.03 K/uL Basophils # (Auto) 0.02 K/uL RDW Standard Deviation 37.9 fL RDW Coefficient of Variation 12.4 % Immature Granulocyte % (Auto) 0.2 % Immature Granulocyte # (Auto) 0.03 K/uL
--- NOTE | 2017-05-22 21:53 | GASTROINTESTINAL CONSULTATION ---
DATE OF CONSULTATION: 05/22/2017 HISTORY OF PRESENT ILLNESS: Mr. Orr is a 56-year-old white male with no significant past medical history chronically although has had recurrent episodes of aspergillosis pneumonia. He recalls had its initial diagnosis in 2009 and again in 2015. 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 The patient underwent a bronchoscopy because his respiratory status had recently decompensated and underwent bronchoscopy on 05/11/2017. After reassessment in the office on 05/19/2017, the patient was admitted to the hospital because of a nonproductive increasing cough with shortness of breath with minimal exertion. The patient denied any fevers, chills, hemoptysis, hematemesis, coffee-ground emesis, diarrhea, constipation and rigors. PAST MEDICAL HISTORY: Includes right axillary abscess, prior history of MRSA, cellulitis, aspergillosis, hemorrhoids, prior tobacco usage, lumbosacral spondylosis, sciatic, sialadenitis, work related injury. PAST SURGICAL HISTORY: He had a prior history of back surgery. FAMILY HISTORY: Significant for mother who from melanoma and father at age 68 from heart disease. Although he believes there may have been some other cancers in the family, particularly on the maternal side, he is not aware of any specific colorectal cancer or gastrointestinal cancer. SOCIAL HISTORY: The patient has never had his initial screening colonoscopy. He occasionally uses alcoholic beverages. 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 ALLERGIES: INCLUDE LORAZEPAM, MIDAZOLAM, CODEINE, SILVER. HOME MEDICATIONS: Include Breo Ellipta, ipratropium bromide, Aleve and Bactrim-DS. REVIEW OF SYSTEMS: Otherwise noncontributory based on 13-point exam except for mentioned above. Specifically, regarding reflux type symptoms, the patient denies any chronic history of typical reflux by way of ascending burning, significant epigastric discomfort or need for any acid suppressing or neutralizing medications. He will occasionally experience some reflux symptoms overnight if he were to eat late and particularly something spicy like pizza. There is no odynophagia or dysphagia and the patient denies any weight loss and of anything has had weight gain by his history. His review of systems is otherwise noncontributory based on 13-point exam. PHYSICAL EXAMINATION: VITAL SIGNS: His admission vital signs showed blood pressure 136/86, afebrile at 36.4, heart rate 83, respirations 18. He was 95% on room air. GENERAL: The patient is awake, alert and oriented x3. HEENT: Sclerae are anicteric, conjunctiva moist. Oral mucosa moist. The head is normocephalic, atraumatic. NECK: There is no cervical or supraclavicular adenopathy. I do not appreciate thyromegaly. The neck is normal range of motion. SKIN: Intact, warm and dry. HEART: Normal S1, S2. LUNGS: Overall clear to auscultation without rales, rhonchi or wheezes. The heart shows no rubs, gallops or murmurs. ABDOMEN: Soft, flat, nontender, nondistended with good bowel sounds. RECTAL: Deferred. EXTREMITIES: Without clubbing, cyanosis or edema. Show normal range of motion. NEUROLOGIC: There are no focal neurologic defects. LABORATORY STUDIES: On admission, white count 8.55, hemoglobin 15.8, platelets were 175, MCV 83. His white count did increase this morning to 12.6, hemoglobin 14.1. The sed rate was normal at 2. His serum chemistry showed potassium of 4.6, BUN and creatinine are 12 and 1.0. Calcium 8.8. Troponin is less than 0.015. The patient has normal IgG of 731 and IgA of 150. Other rheumatologic and collagen vascular and autoimmune markers are pending. The patient is hepatitis C antibody negative. D-dimer is normal at 190. Imaging studies showed a chest x-ray on this admission on 05/19/2017 that showed mild cardiac enlargement with no acute cardiopulmonary abnormality. The patient had an echocardiogram with a final diagnosis that revealed no pericardial effusion, trace aortic regurgitation, trace pulmonic valvular regurgitation. There is no evidence for valvular stenosis, left and right atrial sizes are normal, ejection fraction of left ventricle 60-65% with mild concentric left LVH. MEDICATIONS: In the hospital include metoclopramide 10 mg before meals and at bedtime, pantoprazole 40 mg twice daily, fluticasone, heparin, Mucinex q. 12, DuoNeb, acetaminophen and Zofran. IMPRESSION AND PLAN: The patient with symptoms of recurrent respiratory illness for which he has had aspergillosis pneumonia in the past on 2 occasions and perhaps methicillin-resistant Staphylococcus aureus pneumonia although this may reflect a colonization given the patient's prior skin infections with methicillin-resistant Staphylococcus aureus. The patient describes that after a few doses of PPI and perhaps Reglan, he showed a considerable improvement in his respiratory function with less dyspnea on exertion and shortness of breath along. This is somewhat curious that if his respiratory symptoms were reflux mediated this shorter course of therapy would have made a profound increase. Nevertheless, his respiratory status could be related to an atypical reflux which may or may not show endoscopic evidence. He has no other classic symptoms or alarm symptoms such as dysphagia or weight loss. I made the following recommendations: The patient is currently on IV vancomycin and pantoprazole 40 mg twice daily and Reglan. Would monitor carefully for Reglan side effects, particularly tardive dyskinetic effects. If the pantoprazole is effective, we would continue this for a period of 8-12 weeks at least and observe his respiratory function. If it deteriorates, then esophageal pH impedance study may be helpful. If the patient is still hospitalized by Thursday, then we will plan for an upper endoscopy on Thursday afternoon. Otherwise, we will arrange this as an outpatient in the hospital setting towards the latter part of next week. The patient also never had a screening colonoscopy and we will arrange this over the next couple months as an outpatient once the patient is stable from a respiratory status. All questions answered. Dr. So is covering this weekend.
[2017-05-23 00:06] VITALS: BP 134/77; PULSE 84; TEMP 36.8; O2SAT 95
[2017-05-23] MEDS: HEPARIN SOD 5000 UNIT/0.5 ML CARP SQ SCH (06:00)
[2017-05-23] MEDS: METOCLOPRAMIDE HCL 10 MG TAB PO SCH ×2 (06:17→11:13)
[2017-05-23] MEDS: ALBUT/IPRATROP 3MG/0.5MG NEB 3 ML VIAL INH SCH ×2 (07:07→11:22)
[2017-05-23 07:10] VITALS: PULSE 75; O2SAT 97
[2017-05-23 07:22] VITALS: BP 142/90; PULSE 75; TEMP 36.8; O2SAT 97
[2017-05-23] MEDS: GUAIFENESIN 600 MG TABCR PO SCH (07:48)
[2017-05-23] MEDS: FLUTICASONE FUROATE-VILANTEROL 200/25 MCG INH INH SCH (07:48)
[2017-05-23] MEDS: PANTOprazole SOD 40 MG TAB PO SCH (07:48)
[2017-05-23 09:54] LABS: CREATININE 1.02 mg/dl (0.60-1.40)
[2017-05-23 11:22] VITALS: PULSE 68; O2SAT 98
[2017-05-23] MEDS ORDERED: METO5TAB2 PO (12:22)
[2017-05-23] MEDS ORDERED: PRT40 PO (12:22)
--- NOTE | 2017-05-23 12:23 | Discharge Instructions ---
Discharge Instructions Date of Service May 23, 2017. Admission Reason for Admission: Pneumonia Discharge Discharge Diagnosis / Problem: reflux, reactive airway disease Discharge Goals Goal(s): Diagnostic testing, Therapeutic intervention Activity Recommendations Activity Limitations: as noted below Lifting Limitations: gradually increase as tolerated . Current Hospital Diet Patient's current hospital diet: Regular Diet Discharge Diet Recommended Diet: Regular Diet Pending Studies Studies pending at discharge: no Medical Emergencies . Who to Call and When: Medical Emergencies: If at any time you feel your situation is an emergency, please call 911 immediately. . Non-Emergent Contact Non-Emergency issues call your: Primary Care Provider Call Non-Emergent contact if: temperature is above 101, your pain is unusual for you . . "Provider Documentation" section prepared by Ruy Easley. . VTE Core Measure Inpt VTE Proph given/why not?: Unfractionated heparin LEONIDES, Angel Santo, SCD 's
[2017-05-23 12:49] VITALS: BP 142/90; PULSE 68; TEMP 36.8; O2SAT 98
[2017-05-23] MEDS ORDERED: VANCOMYCIN TROUGH ONE (13:30)
--- NOTE | 2017-05-23 17:04 | Discharge Summary ---
Discharge Summary Date of Service May 23, 2017. Discharge Summary Admission Date: May 19, 2017 at 17:45 Discharge Date: May 23, 2017 Discharge Disposition: Home Principal Diagnosis: aspiratoin induced asthma exacerbation Problems/Secondary Diagnoses: (1) Hemorrhoids Nos Status: Chronic (2) Lumbosacral Spondylosis Status: Chronic (3) Sciatica Status: Chronic (4) Sialoadenitis Status: Chronic Immunizations: Have You Had Influenza Vaccine: No History of Tetanus Vaccine?: Yes History of Pneumococcal: Yes Pneumococcal Date: May 04, 2005 History of Hepatitis B Vaccine: No Consultations: Dr Taylor and Dr Flower Medication Reconciliation New Medications: Metoclopramide Hcl (Metoclopramide Hcl) 5 Mg Tab 5 MG PO ACHS, #28 DOSE Pantoprazole (Pantoprazole Sodium) 40 Mg Tab 40 MG PO BID, #64 TAB 6 Refills Continued Medications: Fluticasone Furoate-Vilanterol (Breo Ellipta 200-25 Mcg/INH) 1 Inh Inh 200 MCG DAILY Ipratropium [place] (Ipratropium [place]) 0.5 Mg/2.5 Ml Nebu 1 VIAL NEB QID for 30 Days, #300 ML 5 Refills Naproxen (Aleve) 220 Mg Tab 440 MG PO PRN UD, TAB Discontinued Medications: Sulfa/Trimethoprim (Bactrim Ds 800MG/160MG) Tab 1 TAB PO BID, #6 TAB Discharge Exam Review of Systems: Constitutional: + fever, + chills Respiratory: No shortness of breath, No dyspnea on exertion Physical Exam: General Appearance: WD/WN, no apparent distress Neurologic/Psychiatric: alert, oriented x 3 Hospital Course Patient continues to feel much improved after treating his reflux, gastrointestinal consultation will see patient as outpt and schedule endoscopy Vital signs are stable he is not hypoxic Cardiac exam is regular lungs are clear, coughing is much reduced Likely chronic reflux disease with aspiration pneumonitis improved with treatment with a PPI and reglan, will continue reglan for one week but keep bid ppi for longer duration as directed by Gastroenterology, continue nebulizers at home stopping antibiotics per ID recommendation Documented By: Ruy Easley Total Time Spent: Greater than 30 minutes This includes examination of the patient, discharge planning, medication reconciliation, and communication with other providers. Discharge Instructions Please refer to the electronic Patient Visit Report (Discharge Instructions) for additional information.
[2017-05-24 23:59] LABS: ANA SCREEN TC 249X NEGATIVE (NEGATIVE)
== END 2017-05-23 13:54 | disposition home or self-care (01) | DRG 178 ==
LOC: C.4E 17:45
PROVIDERS: ADMIT Family Medicine; ATTEND Family Medicine
DX: J15.212 Pneumonia due to Methicillin resistant Staphylococcus aureus (principal); N17.9 Acute kidney failure, unspecified; J45.901 Unspecified asthma with (acute) exacerbation; Z87.891 Personal history of nicotine dependence; Z86.14 Personal history of Methicillin resistant Staphylococcus aureus infection; M62.838 Other muscle spasm; J69.0 Pneumonitis due to inhalation of food and vomit

== ENCOUNTER → 2017-06-10 | Day surgery (SDC) | payer OTHER ==
[2017-06-02 07:37] VITALS: Ht 180.3 cm; Wt 95.5 kg
[~2017-06-10] VITALS: Ht 180.3 cm; Wt 95.5 kg
[~2017-06-10] MED LIST changes: +LIDOCAINE HCL 2% 2 ML VIAL (20MG/ML) ONE; +ONDANSETRON INJ 2 MG/ML 2 ML VIAL ONE; +PROPOFOL IV EMULSION 10 MG/ML 20 ML VIAL IV ONE; +PRT40 PO; +SODIUM CHLORIDE 0.9% 500ML 500 ML IV ONE
--- NOTE | 2017-06-10 14:11 | Endo History and Physical ---
History & Physical Date of Service: Jun 10, 2017. Chief Complaint: non cardiac chest pain Referring Physician: Dr. Gatito Ward History of Present Illness GERD/aspiration pneumonia Past Surgical History Hx Cardiac Surgery: No Hx Internal Defibrillator: No Hx Pacemaker: No Hx Abdominal Surgery: Yes (INGUINAL HERNIA) Hx of Implantable Prosthesis: No Hx Post-Op Nausea and Vomiting: No Hx Cancer Surgery: No Hx Thoracic Surgery: Yes (BRONCHOSCOPY (MULTIPLE)) Hx Orthopedic: Yes (LUMBAR LAMINECTOMY, LUMBAR LAMINECTOMY WITH FUSION) Hx Urinary Tract Surgery: No Family History Colon CA Social History Smoking Status: Former Smoker Hx Substance Use: No Hx Alcohol Use: No Allergies Coded Allergies: Lorazepam (Verified Allergy, Severe, "DANGEROUSLY RAISES BLOOD PRESSURE", 06/02/17) Midazolam (Verified Adverse Reaction, Severe, TACHYCARDIA, 06/02/17) Codeine (Verified Adverse Reaction, Mild, NAUSEA, 06/02/17) Silver (Verified Adverse Reaction, Unknown, RASH,PAIN WITH SILVER ALGINATE , 06/10/17) developed pain with use of silver alginate Uncoded Allergies: SMOOTH MUSCLE (Allergy, Unknown, "SOME SORT OF MUSCLE RELAXER", 05/04/09) Current Medications Reported Home Medications Medications Dose Route/Sig Max Daily Dose Days Date Category Pantoprazole Sodium (Pantoprazole) 40 Mg Tab 40 Mg PO BID 05/23/17 Rx Breo Ellipta 200-25 Mcg/INH (Fluticasone Furoate-Vilanterol) 1 Inh Inh 200 Mcg INH QAM 05/08/17 Reported Ipratropium [place] 0.5 Mg/2.5 Ml Nebu 1 Vial NEB QID PRN 30 05/08/17 Reported Aleve (Naproxen) 220 Mg Tab 440 Mg PO PRN UD 10/05/16 Reported Vital Signs Weight (Kilograms): 95.45 Height (Feet): 5 Height (Inches): 11 Date Time Temp Pulse Resp B/P (MAP) Pulse Ox O2 Delivery O2 Flow Rate FiO2 06/10/17 12:59 36.4 62 18 134/86 (102) 97 Room Air Physical Exam General Appearance: WD/WN, no apparent distress Respiratory/Chest: Auscultation: breath sounds normal Cardiovascular: Heart Auscultation: RRR Abdomen: Bowel Sounds: normal Inspection & Palpation: soft, non-distended, no tenderness, guarding & rebound Assessment and Plan EGD with biopsy
--- NOTE | 2017-06-10 14:52 | Discharge Instructions ---
Endoscopy Patient Instructions Date / Procedure(s) Performed Jun 10, 2017. EGD Allergy Information Coded Allergies: Lorazepam (Verified Allergy, Severe, "DANGEROUSLY RAISES BLOOD PRESSURE", 06/02/17) Midazolam (Verified Adverse Reaction, Severe, TACHYCARDIA, 06/02/17) Codeine (Verified Adverse Reaction, Mild, NAUSEA, 06/02/17) Silver (Verified Adverse Reaction, Unknown, RASH,PAIN WITH SILVER ALGINATE , 06/10/17) developed pain with use of silver alginate Uncoded Allergies: SMOOTH MUSCLE (Allergy, Unknown, "SOME SORT OF MUSCLE RELAXER", 05/04/09) Discharge Date / Findings Jun 10, 2017. mild gastritis- bx Medication Instructions Restart Stopped Medication(s): Reported Home Medications Medications Dose Route/Sig Max Daily Dose Days Date Category Pantoprazole Sodium (Pantoprazole) 40 Mg Tab 40 Mg PO BID 05/23/17 Rx Breo Ellipta 200-25 Mcg/INH (Fluticasone Furoate-Vilanterol) 1 Inh Inh 200 Mcg INH QAM 05/08/17 Reported Ipratropium [place] 0.5 Mg/2.5 Ml Nebu 1 Vial NEB QID PRN 30 05/08/17 Reported Aleve (Naproxen) 220 Mg Tab 440 Mg PO PRN UD 10/05/16 Reported Reported Home Medications Medications Dose Route/Sig Max Daily Dose Days Date Category Pantoprazole Sodium (Pantoprazole) 40 Mg Tab 40 Mg PO BID 05/23/17 Rx Breo Ellipta 200-25 Mcg/INH (Fluticasone Furoate-Vilanterol) 1 Inh Inh 200 Mcg INH QAM 05/08/17 Reported Ipratropium [place] 0.5 Mg/2.5 Ml Nebu 1 Vial NEB QID PRN 30 05/08/17 Reported Aleve (Naproxen) 220 Mg Tab 440 Mg PO PRN UD 10/05/16 Reported Provider Instructions Activity Restrictions - No exercising or heavy lifting for 24 hours. - Do not drink alcohol the day of the procedure. - Do not drive a car or operate machinery until the day after the procedure. - Do not make any important decisions or sign important papers in 24 hours after the procedure. Following Day: - Return to full activity which may include returning to work/school. Diet Start your diet with liquids and light foods (jello, soup, juice, toast). Then eat your usual diet if not nauseated. Treatment For Common After Affects For mild abdominal pain, bloating, or excessive gas: - Rest - Eat lightly - Lie on right side Follow-Up Information Follow-up with Dr. Gatito Ward as scheduled Anesthesia Information What You Should Know You have had a procedure that required some medicine to reduce anxiety and discomfort. This treatment is called moderate sedation. After receiving the treatment, you may be sleepy, but you will be able to breathe on your own. The effects of the treatment may last for several hours. Follow these instructions along with Activity/Diet recommendations noted above: * Do NOT do anything where dizziness or clumsiness would be dangerous. * Rest quietly at home today, then you can be up and about tomorrow. * Have a responsible person stay with you the rest of today. * You may have had an I.V. today. If so, you may take the dressing off later today. Recommendations Call your doctor if: * Trouble breathing * Continuous vomiting for more than 24 hours * Temperature above 101 degrees * Severe abdominal pain or bloating * Pain not relieved by pain medicine ordered * There is increased drainage or redness from any incision * A large amount of rectal bleeding greater than 2-3 tablespoons. (If you had a polyp/s removed or have hemorrhoids, a small amount of blood - from the rectum is to be expected.) * You have any unanswered questions or concerns. IN THE EVENT OF A SERIOUS EMERGENCY, GO TO THE NEAREST EMERGENCY ROOM Your discharge instructions were prepared by provider Eron Flower. Patient Instructions Signature Page Ken Orr Patient (or Guardian) Signature/Date: I have read and understand the instructions given to me by my caregivers. Caregiver/RN/Doctor Signature/Date: The above-named patient and/or guardian has received patient instructions on this date. + Original Patient Signature Page (only) stays with chart. Please make copy for patient.
--- NOTE | 2017-06-10 15:01 | GI REPORT ---
Procedure Date: 06/10/2017 2:10 PM Procedure: Upper GI endoscopy Indications: Gastro-esophageal reflux disease, recurrent aspiration pneumonia Medicines: Propofol per Anesthesia Complications: No immediate complications. Estimated blood loss: Minimal. Estimated Blood Loss: Estimated blood loss was minimal. Procedure: Pre-Anesthesia Assessment: - Prior to the procedure, a History and Physical was performed, and patient medications and allergies were reviewed. The patient's tolerance of previous anesthesia was also reviewed. The risks and benefits of the procedure and the sedation options and risks were discussed with the patient. All questions were answered, and informed consent was obtained. Prior Anticoagulants: The patient has taken no previous anticoagulant or antiplatelet agents. ASA Grade Assessment: II - A patient with mild systemic disease. After reviewing the risks and benefits, the patient was deemed in satisfactory condition to undergo the procedure. After obtaining informed consent, the endoscope was passed under direct vision. Throughout the procedure, the patient's blood pressure, pulse, and oxygen saturations were monitored continuously. The scope was introduced through the mouth, and advanced to the second part of duodenum. The upper GI endoscopy was accomplished without difficulty. The patient tolerated the procedure well. Findings: The examined esophagus was normal. The Z-line was regular and was found 40 cm from the incisors. Patchy mildly erythematous mucosa without bleeding was found in the gastric antrum. Biopsies were taken with a cold forceps for histology. Estimated blood loss was minimal. Verification of patient identification for the specimen was done by the physician and artificial breeding technician using the patient's name and medical record number. The exam was otherwise without abnormality. The examined duodenum was normal. The cardia and gastric fundus were normal on retroflexion. Retained gastric contents are not identified on this exam. Impression: - Normal esophagus. - Z-line regular, 40 cm from the incisors. - Erythematous mucosa in the antrum. Biopsied. - The examination was otherwise normal. - Normal examined duodenum. Recommendation: - Discharge patient to home (ambulatory). - Resume regular diet. - Continue present medications. - Await pathology results. - Return to referring physician as previously scheduled. - Await pathology results. MD Eron Kunz MD 06/10/2017 3:01:08 PM This report has been signed electronically. Note Initiated On: 06/10/2017 2:10 PM I attest to the content of the Intraoperative Record and orders documented therein, exceptions below
--- NOTE | 2017-06-10 15:26 | Anesthesiology Progress Note ---
Anesthesia Post Op Note Date & Time Jun 10, 2017 at 15:26 Vital Signs Pain Intensity: 4 Vital Signs Past 12 Hours Date Time Temp Pulse Resp B/P (MAP) Pulse Ox O2 Delivery O2 Flow Rate FiO2 06/10/17 14:57 69 16 109/71 (84) 95 Room Air 06/10/17 12:59 36.4 62 18 134/86 (102) 97 Room Air Notes Mental Status: alert / awake / arousable, participated in evaluation Pt Amnestic to Procedure: Yes Nausea / Vomiting: adequately controlled Pain: adequately controlled Airway Patency, RR, SpO2: stable & adequate BP & HR: stable & adequate Hydration State: stable & adequate Anesthetic Complications: no major complications apparent
[2017-06-10 15:30] VITALS: BP 127/83; PULSE 68; O2SAT 96
== END | disposition home or self-care (01) ==
LOC: C.GI 12:32
PROVIDERS: ATTEND Internal Medicine Gastroenterology
DX: R07.89 Other chest pain (principal); K21.9 Gastro-esophageal reflux disease without esophagitis; Z80.0 Family history of malignant neoplasm of digestive organs; Z87.891 Personal history of nicotine dependence; Z88.8 Allergy status to other drugs, medicaments and biological substances; Z88.5 Allergy status to narcotic agent

== ENCOUNTER → 2017-07-04 | Outpatient (CLI) | payer OTHER ==
[~2017-07-04] MED LIST changes: -LIDOCAINE HCL 2% 2 ML VIAL (20MG/ML) ONE; -ONDANSETRON INJ 2 MG/ML 2 ML VIAL ONE; -PROPOFOL IV EMULSION 10 MG/ML 20 ML VIAL IV ONE; -SODIUM CHLORIDE 0.9% 500ML 500 ML IV ONE
[2017-07-04 10:38] LABS: BASO % 0.4 %; BASO ABS # 0.02 K/uL (0-0.2); EOS % 1.4 %; EOS ABS # 0.07 K/uL (0-0.5); HEMATOCRIT 42.4 % (42-52); HEMOGLOBIN 15.2 g/dL (14.0-18.0); IG# 0.01 K/uL (0.00-0.02); LYMPH % 32.8 %; LYMPH ABS # 1.66 K/uL (1.2-3.4); MEAN CELL VOLUME 83.1 fL (80-100); MEAN CORPUSCULAR HEMOGLOBIN 29.8 pg (25-34); MEAN CORPUSCULAR HGB CONC 35.8 g/dl (32-36); MEAN PLATELET VOLUME 9.5 fL (7.4-10.4); MONO % 8.5 %; MONO ABS # 0.43 K/uL (0.11-0.59); NEUT % 56.7 %; NEUT ABS # 2.87 K/uL (1.4-6.5); PLATELET COUNT 188 K/uL (130-400); RED CELL DISTRIBUTION WIDTH CV 12.2 % (11.5-14.5); WHITE BLOOD COUNT 5.06 K/uL (4.8-10.8)
== END | disposition home or self-care (01) ==
LOC: C.LAB1850 09:02
PROVIDERS: ATTEND Internal Medicine Pulmonary Disease
DX: R05 Cough (principal)

== ENCOUNTER 2018-05-13 14:18 | Inpatient (IN) ==
[2018-05-13] MEDS ORDERED: ALBUT/IPRATROP 3MG/0.5MG NEB 3 ML VIAL NEB STA (14:49)
[2018-05-13] MEDS ORDERED: VANCOMYCIN CONSULT ACTIVE PRN (15:01)
[2018-05-13] MEDS ORDERED: VANCOMYCIN HCL 2,000 MG in SODIUM CHLORIDE 0.9% 500 ML IV ONE (15:01)
[2018-05-13 15:07] LABS: Basophils # (auto) 0.02 K/uL (0-0.2); Basophils % (auto) 0.3 %; Eosinophils % (auto) 1.4 %; Hematocrit (blood only) 39.3 % (42-52); Hemoglobin 13.5 g/dL (14.0-18.0); Immature Granulocytes # (auto) 0.01 K/uL (0.00-0.02); Immature Granulocytes % (auto) 0.1 %; Lymphocytes # (auto) 1.99 K/uL (1.2-3.4); Lymphocytes % (auto) 28.8 %; Mean Corpuscular Hgb Conc 34.4 g/dL (32-36); Mean Corpuscular Volume 86.4 fL (80-100); Mean Platelet Volume 9.4 fL (7.4-10.4); Monocytes # (auto) 0.57 K/uL (0.11-0.59); Monocytes % (auto) 8.3 %; Neutrophils # (auto) 4.21 K/uL (1.4-6.5); Neutrophils % (auto) 61.1 %; Platelet Count 237 K/uL (130-400); RDW Coefficient of Variation 11.9 % (11.5-14.5); RDW Standard Deviation 37.6 fL (36.4-46.3); Red Blood Count 4.55 M/uL (4.7-6.1)
--- NOTE | 2018-05-13 15:09 | XRay Report ---
XR chest 1V portable CLINICAL HISTORY: Dyspnea dyspnea COMPARISON STUDY: 05/13/2018 FINDINGS: The bones soft tissues and hemidiaphragms are normal. The cardiomediastinal silhouette is n ormal. The lungs are clear. The pulmonary vasculature is normal. IMPRESSION: Negative chest. The above report was generated using voice recognition software. It may contain grammatical, syntax or spelling errors. Electronically signed by: Lorenzo Goldman M.D. 05/13/2018 3:08 PM
--- NOTE | 2018-05-13 15:20 | Emergency Department Note ---
Entered by Serg Tony acting as a scribe for Gatito Keller DO History of Present Illness General Chief complaint: Shortness of Breath/Dyspnea Stated complaint: COUGH,SHORTNESS OF BREATH Source: patient Limitations: no limitations History of Present Illness Provider complaint: Cough/SOB Onset (ago): day(s) (5) Location: chest Pain Consistency: + other (persistent) Quality: + other (SOB) Associated symptoms: + chest pain ("tightness"), + cough and + fever/chills; no nausea/vomiting The patient is a 57 year old male who presents to the Emergency Room with complaints of a persistent cough and shortness of breath that began on Thursday , 5 days ago. The patient notes a history of 4 episodes of pneumonia and was referred to the ED from his pulmonology office. After discussion with his corporate responsibility officer, he notes that the patient often has MRSA pneumonia. The patient does note febrile temperatures on Thursday, and Thursday - 2 days ago. He also describes "heavy tightness" sensations across his chest. The patient is currently on Zithromax and Albuterol inhalers. He denies any nausea, vomiting, or diarrhea. Home Medications Home Medications Medication Instructions Recorded Confirmed Type acetaminophen [Tylenol Extra 1,000 mg PO QID PRN 05/13/18 05/13/18 History Strength] albuterol sulfate [ProAir 2 inh INHALATION Q4 PRN 05/13/18 05/13/18 History RespiClick] azithromycin [Zithromax Z-Zachariah] 1 - 2 tab PO DAILY 05/13/18 05/13/18 History fluticasone-vilanterol [Breo 1 puff INHALATION DAILY 05/13/18 05/13/18 History Ellipta] ipratropium-albuterol 3 ml INHALATION QID PRN 05/13/18 05/13/18 History naproxen sodium [Aleve] 440 mg PO BID PRN 05/13/18 05/13/18 History Allergies Allergy/AdvReac Type Severity Reaction Status Date / Time lorazepam Allergy Severe "DANGEROUSLY Verified 05/13/18 15:51 RAISES BLOOD PRESSURE" midazolam AdvReac Severe TACHYCARDIA Verified 05/13/18 15:51 codeine AdvReac Mild NAUSEA Verified 05/13/18 15:51 silver AdvReac Unknown RASH,PAIN Verified 05/13/18 15:51 WITH SILVER ALGINATE SMOOTH MUSCLE Allergy Unknown "SOME SORT Uncoded 05/13/18 15:51 OF MUSCLE RELAXER" Past Med/Surg History Medical History Shortness of breath Aspergillosis MRSA (methicillin resistant staph aureus) culture positive Bronchiectasis Abscess of right axilla Abscess of right forearm (Acute) Cellulitis GERD (gastroesophageal reflux disease) MRSA pneumonia Work related injury (Resolved) Social History marital status: Current Living Situation: Spouse Other Information That Helps Us Care for You: No Feels Safe at Home: Yes Safety Concerns: Feels Safe At This Time Smoking Status: Never smoker Do You Dip or Chew Tobacco: No Second Hand Exposure: No Tobacco Cessation Education Requested by Patient: No Hx Alcohol Use: No Hx Substance Use: No Beliefs That Will Affect Care: None Preferred Language: Lithuanian Communication Ability: Effective Non Linear Editor Required: No Review of Systems See HPI for pertinent positives & negatives. and A total of 10 systems reviewed and were otherwise negative Physical Exam Vital Signs Vital Signs - 24 hr 05/13/18 14:22 05/13/18 14:50 05/13/18 16:18 Temperature 36.5 C 36.7 C Temperature Source Oral Oral Sepsis Recent Fever Within 48 Hours No Sepsis New/Unexplained Change in Mental Status No Sepsis Action Taken by Nursing No Action Required Pulse Rate 83 Pulse Rate [Apical] 75 Pulse Rate [Left Radial] Respiratory Rate 20 20 Respiratory Effort / Characteristics Non-Labored Respiratory Depth Respiratory Pattern Blood Pressure 145/50 H Blood Pressure [Left Arm] Blood Pressure [Right Arm] 135/76 Blood Pressure Mean 81 Blood Pressure Mean [Left Arm] Blood Pressure Mean [Right Arm] 95 Blood Pressure Position [Left Arm] Pulse Oximetry 97 96 97 Oxygen Delivery Method Room Air Room Air Room Air 05/13/18 17:15 05/13/18 18:09 05/13/18 18:27 Temperature 36.8 C Temperature Source Oral Sepsis Recent Fever Within 48 Hours Sepsis New/Unexplained Change in Mental Status Sepsis Action Taken by Nursing Pulse Rate 78 Pulse Rate [Apical] 74 Pulse Rate [Left Radial] Respiratory Rate 18 20 Respiratory Effort / Characteristics SOB on Exertion Respiratory Depth Normal Respiratory Pattern Regular Blood Pressure 129/75 Blood Pressure [Left Arm] Blood Pressure [Right Arm] 129/75 Blood Pressure Mean Blood Pressure Mean [Left Arm] Blood Pressure Mean [Right Arm] 93 Blood Pressure Position [Left Arm] Pulse Oximetry 96 96 Oxygen Delivery Method Room Air Room Air Room Air 05/13/18 20:02 05/13/18 20:03 05/13/18 21:09 Temperature 36.7 C Temperature Source Oral Sepsis Recent Fever Within 48 Hours Sepsis New/Unexplained Change in Mental Status Sepsis Action Taken by Nursing Pulse Rate Pulse Rate [Apical] 72 Pulse Rate [Left Radial] 73 Respiratory Rate 19 18 Respiratory Effort / Characteristics Non-Labored Non-Labored Non-Labored Respiratory Depth Normal Normal Respiratory Pattern Regular Blood Pressure Blood Pressure [Left Arm] 139/86 Blood Pressure [Right Arm] Blood Pressure Mean Blood Pressure Mean [Left Arm] 103 Blood Pressure Mean [Right Arm] Blood Pressure Position [Left Arm] Sitting Pulse Oximetry 96 97 Oxygen Delivery Method Room Air Room Air Room Air GENERAL: Patient is awake alert in no acute distress patient is resting comfortably and showing no signs of anxiety EYES: The conjunctivae are clear. The pupils are round and reactive. EARS, NOSE, MOUTH AND THROAT: The nose is without any evidence of any deformity. Mucous membranes are moist tongue is midline NECK: The neck is nontender and supple. RESPIRATORY: Diminished breath sounds were noted throughout. There are expiratory wheezes in all lung small. Mild conversational dyspnea was noted. CARDIOVASCULAR: Regular rate and rhythm noted there no murmurs rubs or gallops normal S1 normal S2 GASTROINTESTINAL: The abdomen is soft. Bowel sounds are present in all quadrants. Abdomen is nontender MUSCULOSKELETAL/EXTREMITIES: There is no evidence of gross deformity full range of motion is noted in the hips and shoulders SKIN: There is no obvious evidence of any rash. There are no petechiae, pallor or cyanosis noted. NEUROLOGIC: Patient is awake alert and oriented x3 strength is symmetric patellar reflexes are 2+ bilaterally Course 1445: Past medical records reviewed. The patient was evaluated in room B10, and a complete history and physical examination were performed. 1501: I reviewed the patient's case with Dr. Maynard - Pulmonology. He states that the patient has a tendency to acquire MRSA pneumonia 1835: I reviewed the patient's case with Dr. Lyle - [facility] Hospitalist. He will evaluate the patient for further management. Administered Medications Albuterol (Duoneb) 3 ml NEB Q4R JESUS Stop: 06/12/18 19:59 Last Admin: 05/13/18 21:08 Dose: 3 ml Benzonatate (Tessalon Perle) 100 mg PO TID JESUS Stop: 06/12/18 20:59 Last Admin: 05/13/18 21:34 Dose: 100 mg Enoxaparin Sodium (Lovenox) 40 mg SQ Q24H JESUS Stop: 06/12/18 20:59 Last Admin: 05/13/18 21:33 Dose: Not Given Guaifenesin (Mucinex) 1,200 mg PO Q12 JESUS Stop: 06/12/18 20:59 Last Admin: 05/13/18 21:33 Dose: 1,200 mg Cefepime HCl 1,000 mg/ Syringe 11.3 mls @ 5.5 mls/min IV Q8H JESUS Stop: 05/20/18 20:59 Last Admin: 05/13/18 21:32 Dose: 5.5 mls/min Discontinued Medications Albuterol (Duoneb) 3 ml NEB NOW STA Stop: 05/13/18 14:50 Last Admin: 05/13/18 15:01 Dose: 3 ml Vancomycin HCl 2,000 mg/ (Sodium Chloride) 540 mls @ 200 mls/hr IV NOW ONE Stop: 05/13/18 17:42 Last Infusion: 05/13/18 17:52 Dose: 0 mls/hr Admin: 05/13/18 15:29 Dose: 200 mls/hr Medical Decision Making Differential Diagnosis Differential diagnosis: Etiologies such as infections, reactive airway disease, COPD, pneumonia, pleural effusion, pulmonary edema, ARDS, pneumothorax, CHF, cardiac ischemia, cardiac tamponade, dysrhythmia, anemia, pulmonary embolism, musculoskeletal, gastrointestinal process, as well as others were entertained. Medical Records Attestation: I reviewed the patient's medical records. Home Medications Current Medication List: was personally reviewed by me Laboratory Data Attestation: I reviewed the patient's lab results. Result diagrams: 05/13/18 14:45 05/13/18 14:45 Lab Results 05/13/18 05/13/18 05/13/18 Range/Units 14:45 14:45 14:45 WBC 6.90 (4.8-10.8) K/uL RBC 4.55 L (4.7-6.1) M/uL Hgb 13.5 L (14.0-18.0) g/dL Hct 39.3 L (42-52) % MCV 86.4 (80-100) fL MCH 29.7 (25-34) pg MCHC 34.4 (32-36) g/dL RDW Std Deviation 37.6 (36.4-46.3) fL RDW Coeff of Ismael 11.9 (11.5-14.5) % Plt Count 237 (130-400) K/uL MPV 9.4 (7.4-10.4) fL Immature Gran % (Auto) 0.1 % Neut % (Auto) 61.1 % Lymph % (Auto) 28.8 % [place] % (Auto) 8.3 % Eos % (Auto) 1.4 % Baso % (Auto) 0.3 % Immature Gran # (Auto) 0.01 (0.00-0.02) K/uL Neut # (Auto) 4.21 (1.4-6.5) K/uL Lymph # (Auto) 1.99 (1.2-3.4) K/uL [place] # (Auto) 0.57 (0.11-0.59) K/uL Eos # (Auto) 0.10 (0-0.5) K/uL Baso # (Auto) 0.02 (0-0.2) K/uL ESR (0-14) mm/hr PT 10.2 (9.0-12.0) Seconds INR 1.0 (0.9-1.1) APTT 27.3 (21.0-31.0) Seconds PTT Ratio 1.1 VBG pH (7.36-7.41) VBG pCO2 (38-50) mmHg VBG pO2 mmHg VBG HCO3 mmol/L VBG O2 Saturation % VBG Base Excess mEq/L Barometric Pressure mm/Hg Sodium 142 (136-145) mmol/L Potassium 3.9 (3.5-5.1) mmol/L Chloride 107 (98-107) mmol/L Carbon Dioxide 29 (21-32) mmol/L Anion Gap 6.0 (3-11) BUN 19 H (7-18) mg/dl Creatinine 0.97 (0.6-1.4) mg/dl Est Cr Clr Drug Dosing 96.2 ml/min Est GFR ( Amer) 99.3 Est GFR (Non-Af Amer) 85.7 BUN/Creatinine Ratio 19.4 (10-20) Glucose 118 H (70-99) mg/dl Calcium 8.8 (8.5-10.1) mg/dl Magnesium 2.3 (1.8-2.4) mg/dl Total Bilirubin 0.3 (0.2-1) mg/dl AST 15 (15-37) U/L ALT 32 (12-78) U/L Alkaline Phosphatase 73 (45-117) U/L Troponin I < 0.015 (0-0.045) ng/ml C-Reactive Protein 7.80 H (0-0.29) mg/dl Total Protein 7.3 (6.4-8.2) gm/dl Albumin 3.4 (3.4-5.0) gm/dl Globulin 3.9 (2.5-4.0) gm/dl Albumin/Globulin Ratio 0.9 (0.9-2) Urine Color Urine Appearance (Clear) Urine pH (4.5-7.5) Ur Specific [place] (1.000-1.030) Urine Protein (Negative) Urine Glucose (UA) (Negative) Urine Ketones (Negative) Urine Blood (Negative) Urine Nitrite (Negative) Urine Bilirubin (Negative) Urine Urobilinogen (Negative) Ur Leukocyte Esterase (Negative) Urine WBC (Auto) (0-5) /hpf Urine RBC (Auto) (0-4) /hpf U Hyaline Cast (Auto) (0-5) /lpf U Epithel Cells (Auto) (0-5) /lpf Urine Bacteria (Auto) (Negative) Influenza Type A (PCR) (Neg) Influenza Type B (PCR) (Neg) 05/13/18 05/13/18 05/13/18 Range/Units 14:45 14:45 14:50 WBC (4.8-10.8) K/uL RBC (4.7-6.1) M/uL Hgb (14.0-18.0) g/dL Hct (42-52) % MCV (80-100) fL MCH (25-34) pg MCHC (32-36) g/dL RDW Std Deviation (36.4-46.3) fL RDW Coeff of Ismael (11.5-14.5) % Plt Count (130-400) K/uL MPV (7.4-10.4) fL Immature Gran % (Auto) % Neut % (Auto) % Lymph % (Auto) % [place] % (Auto) % Eos % (Auto) % Baso % (Auto) % Immature Gran # (Auto) (0.00-0.02) K/uL Neut # (Auto) (1.4-6.5) K/uL Lymph # (Auto) (1.2-3.4) K/uL [place] # (Auto) (0.11-0.59) K/uL Eos # (Auto) (0-0.5) K/uL Baso # (Auto) (0-0.2) K/uL ESR 46 H (0-14) mm/hr PT (9.0-12.0) Seconds INR (0.9-1.1) APTT (21.0-31.0) Seconds PTT Ratio VBG pH (7.36-7.41) VBG pCO2 (38-50) mmHg VBG pO2 mmHg VBG HCO3 mmol/L VBG O2 Saturation % VBG Base Excess mEq/L Barometric Pressure mm/Hg Sodium (136-145) mmol/L Potassium (3.5-5.1) mmol/L Chloride (98-107) mmol/L Carbon Dioxide (21-32) mmol/L Anion Gap (3-11) BUN (7-18) mg/dl Creatinine (0.6-1.4) mg/dl Est Cr Clr Drug Dosing ml/min Est GFR ( Amer) Est GFR (Non-Af Amer) BUN/Creatinine Ratio (10-20) Glucose (70-99) mg/dl Calcium (8.5-10.1) mg/dl Magnesium (1.8-2.4) mg/dl Total Bilirubin (0.2-1) mg/dl AST (15-37) U/L ALT (12-78) U/L Alkaline Phosphatase (45-117) U/L Troponin I (0-0.045) ng/ml C-Reactive Protein Cancelled (0-0.29) mg/dl Total Protein (6.4-8.2) gm/dl Albumin (3.4-5.0) gm/dl Globulin (2.5-4.0) gm/dl Albumin/Globulin Ratio (0.9-2) Urine Color Urine Appearance (Clear) Urine pH (4.5-7.5) Ur Specific [place] (1.000-1.030) Urine Protein (Negative) Urine Glucose (UA) (Negative) Urine Ketones (Negative) Urine Blood (Negative) Urine Nitrite (Negative) Urine Bilirubin (Negative) Urine Urobilinogen (Negative) Ur Leukocyte Esterase (Negative) Urine WBC (Auto) (0-5) /hpf Urine RBC (Auto) (0-4) /hpf U Hyaline Cast (Auto) (0-5) /lpf U Epithel Cells (Auto) (0-5) /lpf Urine Bacteria (Auto) (Negative) Influenza Type A (PCR) Neg for Influ A (Neg) Influenza Type B (PCR) Neg for Influ B (Neg) 05/13/18 05/13/18 Range/Units 15:12 Unknown WBC (4.8-10.8) K/uL RBC (4.7-6.1) M/uL Hgb (14.0-18.0) g/dL Hct (42-52) % MCV (80-100) fL MCH (25-34) pg MCHC (32-36) g/dL RDW Std Deviation (36.4-46.3) fL RDW Coeff of Ismael (11.5-14.5) % Plt Count (130-400) K/uL MPV (7.4-10.4) fL Immature Gran % (Auto) % Neut % (Auto) % Lymph % (Auto) % [place] % (Auto) % Eos % (Auto) % Baso % (Auto) % Immature Gran # (Auto) (0.00-0.02) K/uL Neut # (Auto) (1.4-6.5) K/uL Lymph # (Auto) (1.2-3.4) K/uL [place] # (Auto) (0.11-0.59) K/uL Eos # (Auto) (0-0.5) K/uL Baso # (Auto) (0-0.2) K/uL ESR (0-14) mm/hr PT (9.0-12.0) Seconds INR (0.9-1.1) APTT (21.0-31.0) Seconds PTT Ratio VBG pH 7.30 L (7.36-7.41) VBG pCO2 58 H (38-50) mmHg VBG pO2 31 mmHg VBG HCO3 28 mmol/L VBG O2 Saturation < 60.0 % VBG Base Excess 0.6 mEq/L Barometric Pressure 729.7 mm/Hg Sodium (136-145) mmol/L Potassium (3.5-5.1) mmol/L Chloride (98-107) mmol/L Carbon Dioxide (21-32) mmol/L Anion Gap (3-11) BUN (7-18) mg/dl Creatinine (0.6-1.4) mg/dl Est Cr Clr Drug Dosing ml/min Est GFR ( Amer) Est GFR (Non-Af Amer) BUN/Creatinine Ratio (10-20) Glucose (70-99) mg/dl Calcium (8.5-10.1) mg/dl Magnesium (1.8-2.4) mg/dl Total Bilirubin (0.2-1) mg/dl AST (15-37) U/L ALT (12-78) U/L Alkaline Phosphatase (45-117) U/L Troponin I (0-0.045) ng/ml C-Reactive Protein (0-0.29) mg/dl Total Protein (6.4-8.2) gm/dl Albumin (3.4-5.0) gm/dl Globulin (2.5-4.0) gm/dl Albumin/Globulin Ratio (0.9-2) Urine Color Yellow Urine Appearance Cloudy H (Clear) Urine pH 5.0 (4.5-7.5) Ur Specific [place] 1.033 H (1.000-1.030) Urine Protein Negative (Negative) Urine Glucose (UA) Negative (Negative) Urine Ketones Negative (Negative) Urine Blood Negative (Negative) Urine Nitrite Negative (Negative) Urine Bilirubin Negative (Negative) Urine Urobilinogen Negative (Negative) Ur Leukocyte Esterase Negative (Negative) Urine WBC (Auto) 1-5 (0-5) /hpf Urine RBC (Auto) 0-4 (0-4) /hpf U Hyaline Cast (Auto) 1-5 (0-5) /lpf U Epithel Cells (Auto) 5-10 H (0-5) /lpf Urine Bacteria (Auto) Negative (Negative) Influenza Type A (PCR) (Neg) Influenza Type B (PCR) (Neg) Imaging Data Attestation: I personally reviewed and interpreted this imaging study as follows : Radiologist's Impression: XR chest 1V portable CLINICAL HISTORY: Dyspnea dyspnea COMPARISON STUDY: 05/13/2018 FINDINGS: The bones soft tissues and hemidiaphragms are normal. The cardiomediastinal silhouette is normal. The lungs are clear. The pulmonary vasculature is normal. IMPRESSION: Negative chest. The above report was generated using voice recognition software. It may contain grammatical, syntax or spelling errors. Electronically signed by: Lorenzo Goldman M.D. 05/13/2018 3:08 PM ECG Data Attestation: I personally reviewed and interpreted this ECG as follows: Indication: SOB/dyspnea Rate (beats per minute): 76 Rhythm: sinus rhythm Findings: + RBBB; no ST depression and no ST elevation Blood Pressure Blood Pressure Findings: Elevated blood pressure Blood Pressure Disposition: elevated BP felt to be situational MDM Narrative The patient is a 57-year-old male who presented to the emergency department for an evaluation of difficulty breathing. The patient had a cough and difficulty breathing. His history and physical exam appear to be consistent with his bronchiectasis. The patient was started on a Zithromax pack this week. He states his symptoms continue to worsen. He followed up with his primary corporate responsibility officer and was sent to the emergency department for admission. 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 For this reason he was started on IV vancomycin. I discussed the patient's laboratory and radiographic studies with him. I also discussed his presentation with his primary corporate responsibility officer. I also discussed his case with the on-call [facility] hospitalist group. They have agreed to evaluate the patient in the emergency department for further management and disposition. Impression & Plan MRSA pneumonia, Bronchiectasis Discharge Plan Visit Data *Final* Discharge Date/Time: 05/13/18 18:27 Chief Complaint: Shortness of Breath/Dyspnea Stated Complaint: COUGH,SHORTNESS OF BREATH ED Provider: Gatito Keller Discharge Problem: MRSA pneumonia, Bronchiectasis Patient Disposition: Admitted As Inpatient Discharge Instructions Interventions: ED Discharge Assessment Last Done: 05/13/18 18:27 The scribe's documentation has been prepared under my direction and personally reviewed by me in its entirety. I confirm that the note above accurately reflects all work, treatment, procedures, and medical decision making performed by me.
[2018-05-13 15:21] LABS: Partial Thromboplastin Ratio 1.1; Partial Thromboplastin Time 27.3 Seconds (21.0-31.0); Prothrombin Time 10.2 Seconds (9.0-12.0)
[2018-05-13 15:24] LABS: Alanine Aminotransferase 32 U/L (12-78); Albumin Level 3.4 gm/dl (3.4-5.0); BUN Creatinine Ratio 19.4 (10-20); Blood Urea Nitrogen 19 mg/dl (7-18); Calcium 8.8 mg/dl (8.5-10.1); Carbon Dioxide 29 mmol/L (21-32); Chloride 107 mmol/L (98-107); Creatinine Clr Calc Pharmacy 96.2 ml/min; Est GFR (African American) 99.3; Est GFR (Non-African American) 85.7; Glucose 118 mg/dl (70-99); Magnesium 2.3 mg/dl (1.8-2.4); Potassium 3.9 mmol/L (3.5-5.1); Sodium 142 mmol/L (136-145)
[2018-05-13 15:27] LABS: Albumin Globulin Ratio 0.9 (0.9-2); Alkaline Phosphatase 73 U/L (45-117); Bilirubin,Total 0.3 mg/dl (0.2-1); Globulin 3.9 gm/dl (2.5-4.0); Total Protein 7.3 gm/dl (6.4-8.2)
[2018-05-13 15:32] LABS: Aspartate Aminotransferase 15 U/L (15-37); Troponin I < 0.015 ng/ml (0-0.045)
[2018-05-13 15:39] LABS: Base Excess VBG 0.6 mEq/L; HCO3 VBG 28 mmol/L; PCO2 VBG 58 mmHg (38-50); PO2 VBG 31 mmHg
[2018-05-13 15:41] LABS: Oxygen Saturation VBG < 60.0 %
[2018-05-13 15:52] LABS: Influenza A virus by PCR Neg for Influ A (Neg); Influenza B virus by PCR Neg for Influ B (Neg)
--- NOTE | 2018-05-13 17:57 | History & Physical Report ---
Addendum entered and electronically signed by Haley Muhammad PA-C 05/13/18 18:28: Addendum (Blank) Addendum May 13, 2018 18:27 Family History: CAD, DM, cancer Original Note: Date of Service May 13, 2018 Assessment & Plan (1) Shortness of breath: (2) Bronchiectasis: -Admit to med surg -Consult pulm, Dr. amor, Dr. Ortega follows as outpt. Possible bronchoscopy tomorrow. N.p.o. after midnight in case of bronch -CXR reviewed: 2 view chest x-ray obtained showing increased markings in left perihilar region and left lower lobe, likely secondary to atelectasis and bronchiectasis. -Continue on Vanco for now. Patient has taken azithromycin x2 doses outpt, holding, -Sputum cultures, aspergillosis positive in the past, will check AFB -MRSA positive on bronchoscopy culture in the past. -Supportive care: Mucinex, Tessalon pearls, O2 prn, Tylenol, naproxen, DuoNeb's -Continuous pulse ox -Continue Brio Ellipta inhaler (3) MRSA (methicillin resistant staph aureus) culture positive: -Vancomycin as above -Patient has had recurrent skin infections in the past requiring surgical excise twice. 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 Pt presents with flu-like symptoms since last Thursday. The patient was seen in the outpatient pulmonary clinic by alexey Mendez for an acute visit. Patient notes that he has had nonproductive cough, sweats and chills, T-max = 101 on Thursday, poor appetite and fluid intake, and intermittent headache. He has been alternating with tylenol and aleve. He had been called by the pulmonary office on Thursday and given Rx for azithromycin. The patient did not see any significant improvement after 2 days of this antibiotic, therefore went back to the pulmonary office. Patient feels the same way he did prior to his last admission approximately 1 year ago with similar presentation. At that point time he underwent bronchoscopy with cultures +MRSA. He was referred here today for possible bronchoscopy tomorrow. 2 view chest x-ray obtained showing increased markings in left perihilar region and left lower lobe, likely secondary to atelectasis and bronchiectasis. Allergies Allergy/AdvReac Type Severity Reaction Status Date / Time lorazepam Allergy Severe "DANGEROUSLY Verified 05/13/18 15:51 RAISES BLOOD PRESSURE" midazolam AdvReac Severe TACHYCARDIA Verified 05/13/18 15:51 codeine AdvReac Mild NAUSEA Verified 05/13/18 15:51 silver AdvReac Unknown RASH,PAIN Verified 05/13/18 15:51 WITH SILVER ALGINATE SMOOTH MUSCLE Allergy Unknown "SOME SORT Uncoded 05/13/18 15:51 OF MUSCLE RELAXER" Home Medications Home Medications Medication Instructions Recorded Confirmed Type acetaminophen [Tylenol Extra 1,000 mg PO QID PRN 05/13/18 05/13/18 History Strength] albuterol sulfate [ProAir 2 inh INHALATION Q4 PRN 05/13/18 05/13/18 History RespiClick] azithromycin [Zithromax Z-Zachariah] 1 - 2 tab PO DAILY 05/13/18 05/13/18 History fluticasone-vilanterol [Breo 1 puff INHALATION DAILY 05/13/18 05/13/18 History Ellipta] ipratropium-albuterol 3 ml INHALATION QID PRN 05/13/18 05/13/18 History naproxen sodium [Aleve] 440 mg PO BID PRN 05/13/18 05/13/18 History Past Med/Surg History Medical History Shortness of breath Aspergillosis MRSA (methicillin resistant staph aureus) culture positive Bronchiectasis Abscess of right axilla Abscess of right forearm (Acute) Cellulitis GERD (gastroesophageal reflux disease) MRSA pneumonia Work related injury (Resolved) Social History marital status: Current Living Situation: Spouse Other Information That Helps Us Care for You: No Feels Safe at Home: Yes Safety Concerns: Feels Safe At This Time Smoking Status: Never smoker Do You Dip or Chew Tobacco: No Second Hand Exposure: No Tobacco Cessation Education Requested by Patient: No Hx Alcohol Use: No Hx Substance Use: No Beliefs That Will Affect Care: None Preferred Language: Swedish Communication Ability: Effective 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 Review of Systems Constitutional: + fever, + fatigue and + weakness; no chills and no sweats Eyes: no diplopia and no worsening vision Ear, Nose, Mouth, Throat: no dizziness, no nasal discharge, no facial pain and no sore throat Respiratory: + cough and + dyspnea on exertion; no chest congestion, no hemoptysis, no sputum production and no wheezing Cardiovascular: no chest pain, no palpitations, no lightheadedness and no syncope Gastrointestinal: no nausea, no vomiting and no constipation no diarrhea Genitourinary (Male): no dysuria, no urinary frequency, no urinary hesitancy and no hematuria Musculoskeletal: no back pain, no joint pain, no swelling and no muscle weakness Integumentary: no rash, no lesions and no wounds Neurologic: no gait abnormality, no falls, no numbness, no dizziness and no syncope Psychiatric: no depression and no anxiety Physical Exam 2 Vital Signs (Past 24 Hours): Last Vital Signs Temp 36.7 C 05/13/18 16:18 Pulse 75 05/13/18 16:18 Resp 20 05/13/18 16:18 BP 135/76 05/13/18 16:18 Pulse Ox 97 05/13/18 16:18 Physical Exam: General: awake, alert, no apparent distress Head: Normocephalic, atraumatic ENT: PERRL, EOMI, no pharyngeal exudate, mucous membranes moist Chest: on room air, + cough, audible wheeze, coarse breath sounds throughout, + rhonchi. Cardiac: Regular rate and rhythm, no murmur, no JVD, normal peripheral pulses, good capillary refill Abdominal: NABS x 4 quadrants, soft, nontender to palpation, no rebound, guarding or tenderness Extremities: Normal inspection, no peripheral edema or erythema, calfs nontender to palpation Psych: Normal mood and affect Neuro: AAO x 3, strength intact bilaterally and related 5/5, no motor deficits, speech is clear, no peripheral sensory deficits Results & Data Diagnostic Findings XR chest 2V routine CLINICAL HISTORY: R05 DIFFICULTY BREATHING COMPARISON STUDY: CT scan dated 04/10/2017 FINDINGS: The heart is normal in size. Increased markings within the left perihilar region and left lower lobe, likely corresponding to the previously identified left lower lobe bronchiectasis and atelectatic change. There is no lobar consolidation. There is no failure. There are no pleural effusions..[ IMPRESSION: 1. Increased markings in left perihilar region and left lower lobe, likely secondary to atelectasis and bronchiectasis. Electronically signed by: Enio Phillips M.D. 05/13/2018 2:00 PM Dictated: 05/13/18 1358 Transcribed: 05/13/18 1358 Code Status & VTE Plan Code Status DNR Supervising Physician Co-Signing Physician Notes Pt seen/examined in conjunction with LISA Grimm. Orders and plan of admission formulated with LISA. 57 y/o M Hx of bronchiectasis, recurrent MRSA of the skin, MRSA pneumonia, Aspergillosis pneumonia. Presents with URI syptoms which hae been present for 5 days including a fevevr of up to 101. 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 There was concern for recurrence of bronchiectasis and PNM. Due to his history, he was directed to the hospital for IV antibiotics and possible bronchoscopy. OE AAO x 3 S1,2 R Crackles on R lower and mid lung small NT, ND No CCE No deficits P: Due to Hx of MRSA and bronchiectasis, he will be treated with Van and Cefepime pending culture results. Duluis miguel and thu 02 protocol provided Pt is stable on admission without hypoxia
[2018-05-13] MEDS ORDERED: ONDANSETRON INJ 2 MG/ML 2 ML VIAL IV PRN (19:53)
[2018-05-13] MEDS ORDERED: NAPROXEN 250 MG TAB PO PRN (19:53)
[2018-05-13] MEDS ORDERED: ALBUT/IPRATROP 3MG/0.5MG NEB 3 ML VIAL INH PRN (19:53)
[2018-05-13] MEDS ORDERED: ACETAMINOPHEN 500 MG TAB PO PRN (19:53)
--- NOTE | 2018-05-13 20:30 | CT Scan Report ---
CT chest wo con CT DOSE: 465.68 mGy.cm HISTORY: Assess bronchiectasis TECHNIQUE: Multiaxial CT images of the chest were performed without contrast. A dose lowering techni que was utilized adhering to the principles of ALARA. COMPARISON: Chest CT 04/10/2017. FINDINGS: No pneumothorax. No pleural effusions. Stable linear scarlike density and a few calcificati ons within the left lower lobe. Partial opacification of the left posterior basal segmental bronchus which has slightly improved. No change in the partial aspiration of a right apical bronchus. Interval development of groundglass airspace opacities and tree-in-bud nodular opacities seen within the righ t lower lobe, lingula, and right lung apex. This is new from the prior study and is consistent with a pneumonia. No suspicious lytic or blastic osseous lesions. A few calcified mediastinal and bilateral hilar lymph nodes are again noted. The visualized liver, spleen, and adrenal glands are unremarkable . Normal esophagus. No mediastinal or hilar lymphadenopathy. The heart is normal in size. Normal johnnie loyd thoracic aorta. IMPRESSION: 1. Interval development of groundglass airspace opacities and tree-in-bud nodular opacities within th e right lower lobe, lingula, and right lung apex. This is consistent with a developing pneumonia. 2. Partial opacification of the left lower lobe and right apical segmental bronchi are again noted. Electronically signed by: Billy Wade M.D. 05/13/2018 8:28 PM
[2018-05-13 21:05] LABS: Appearance Urine Cloudy (Clear); Bacteria Urine Automated Negative (Negative); Bilirubin Urine Negative (Negative); Blood Urine Negative (Negative); Color Urine Yellow; Glucose Urine UA Negative (Negative); Ketones Urine Negative (Negative); Leukocyte Esterase Urine Negative (Negative); Nitrite Urine Negative (Negative); Protein Urine Negative (Negative); RBC Urine Automated 0-4 /hpf (0-4); Specific Gravity Urine 1.033 (1.000-1.030); Urobilinogen Urine Negative (Negative)
[2018-05-13] MEDS: ALBUT/IPRATROP 3MG/0.5MG NEB 3 ML VIAL NEB SCH ×2 (21:08→23:57)
[2018-05-13] MEDS: CEFEPIME 1,000 MG in SYRINGE 0 ML IV SCH (21:32)
[2018-05-13] MEDS: guaiFENesin 600 MG TABCR PO SCH (21:33)
[2018-05-13] MEDS: ENOXAPARIN INJ 40 MG/0.4 ML SYR SQ SCH (21:33)
[2018-05-13] MEDS: BENZONATATE 100 MG CAPSULE PO SCH (21:34)
[2018-05-13] MEDS: BREO ELLIPTA ~ ORDER AWAITING ACTION SCH (23:37)
[2018-05-14] MEDS: VANCOMYCIN HCL 1,500 MG in SODIUM CHLORIDE 0.9% 500 ML IV SCH ×3 (00:10→21:44)
[2018-05-14] MEDS: ALBUT/IPRATROP 3MG/0.5MG NEB 3 ML VIAL NEB SCH ×6 (03:04→23:13)
[2018-05-14] MEDS: CEFEPIME 1,000 MG in SYRINGE 0 ML IV SCH (04:35)
[2018-05-14] MEDS: BREO ELLIPTA ~ ORDER AWAITING ACTION SCH ×2 (07:41→17:01)
[2018-05-14] MEDS: BENZONATATE 100 MG CAPSULE PO SCH ×3 (07:46→21:43)
[2018-05-14] MEDS: guaiFENesin 600 MG TABCR PO SCH ×2 (07:46→21:43)
--- NOTE | 2018-05-14 09:07 | Pre Anesthesia Assessment ---
Date of Service May 14, 2018 Pre Sedation Assessment Vital Signs Temp Pulse Pulse Pulse Pulse Resp BP 05/14/18 07:43 36.7 C 69 20 05/14/18 07:02 83 16 05/14/18 03:05 57 L 16 05/13/18 23:20 36.9 C 78 18 05/13/18 21:09 72 18 05/13/18 20:02 36.7 C 73 19 05/13/18 18:27 78 20 129/75 05/13/18 18:09 36.8 C 74 18 05/13/18 16:18 36.7 C 75 20 05/13/18 14:50 05/13/18 14:22 36.5 C 83 20 145/50 H BP BP Pulse Ox 05/14/18 07:43 146/71 H 97 05/14/18 07:02 96 05/14/18 03:05 97 05/13/18 23:20 130/82 95 05/13/18 21:09 97 05/13/18 20:02 139/86 96 05/13/18 18:27 96 05/13/18 18:09 129/75 96 05/13/18 16:18 135/76 97 05/13/18 14:50 96 05/13/18 14:22 97 Cardiovascular RRR, no murmur, no edema + peripheral pulses normal Respiratory normal respiratory effort, lungs clear to auscultation Pre-Sedation Airway Assessment Smoking Status: Never smoker Hx Sleep Apnea: No Hx Difficult Intubation: No Short, Thick Neck: No Thyromental Distance: > or= 3.5 Finger Breadths Oral Cavity: + WNL Mallampati Class: II ASA: ASA2 Notes The planned sedation has been discussed with the patient. Informed Consent was obtained. I have identified the patient, determined the appropriateness of sedation and have assessed the patient immediately prior to the procedure. All medicine(s) and interventions are by my order.
--- NOTE | 2018-05-14 09:07 | History & Physical Bridge Note ---
Date of Service May 14, 2018 History & Physical Bridge Note I have examined the patient, reviewed the History & Physical and in the interval since the performance of the History & Physical I have noted the following changes of clinical significance: no changes noted
[2018-05-14] MEDS ORDERED: SODIUM CHLORIDE 0.9% 1000ML 1,000 ML IV SCH (09:15)
[2018-05-14] MEDS ORDERED: OXYMETAZOLINE 0.05% 30 ML BTL ONE (09:52)
[2018-05-14] MEDS ORDERED: LIDOCAINE 4% INH SOLN 4 ML BTL INH STA (09:52)
--- NOTE | 2018-05-14 09:58 | Consultation Report ---
DATE OF CONSULTATION: 05/14/2018 PULMONARY MEDICINE CONSULTATION REASON FOR CONSULTATION: Bronchiectasis, recurrent MRSA infection of the lung. 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 The patient has done well since taking this aggressive approach to his disease and has not had an exacerbation for over a year. He had flu-like symptoms this past Thursday and saw Sunita Regalado in our office and was prescribed a Z-Zachariah by Dr. Glez. This has been ineffectual. He started on a prednisone taper and the symptoms got worse and he came into the Emergency Room, was seen by Dr. Gatito Keller and I was consulted. He was admitted on to the hospitalist service. Chest x-ray showed increased left perihilar and left lower lobe changes with atelectasis and changes consistent with bronchiectasis. He has been on Breo Ellipta and has not had to use up until recently his nebulizer with DuoNeb solution. For details of past medical history, medications, family and social history, I refer you to current and past record. PHYSICAL EXAMINATION: GENERAL: Reveals well-developed, well-nourished white male, coughing almost continually. VITAL SIGNS: Blood pressure 146/71, pulse 69 and regular, respiratory rate 20, temperature 36.7, O2 sat 97% on room air. SKIN: Warm and dry. HEENT: Atraumatic, normocephalic. PERRLA. EOMI. Conjunctivae pink. Sclerae nonicteric. Fundi poorly visualized. LUNGS: Coarse wheezes, decreased breath sounds at left base. CARDIAC: Regular rate and rhythm. I do not appreciate a gallop. ABDOMEN: Soft, scaphoid. No evidence of hepatosplenomegaly. EXTREMITIES: No pedal edema, clubbing, cyanosis. NEUROLOGICAL: Intact. No lateralizing signs. LABORATORY DATA: Chest x-ray is noted. Other laboratory pending. ASSESSMENT: A 57-year-old white male with history of MRSA infection, chronic bronchiectasis, ABPA, now with recurrent symptoms, scheduled bronchoscopic intervention and more definitive treatment plan, pending results of that study.
[2018-05-14] MEDS ORDERED: LEVALBUTEROL HCL 1.25 MG/3 ML NEB NEB STA (10:17)
[2018-05-14] MEDS ORDERED: MIDAZOLAM HCL 1 MG/ML 2ML VIAL IV STA (10:17)
[2018-05-14] MEDS ORDERED: LIDOCAINE HCL 2% (LOCAL) INJ 50 ML VIAL INFIL STA (10:17)
[2018-05-14] MEDS ORDERED: LIDOCAINE HCL VISCOUS SOLN 2% 15 ML UDC MT ONE (10:17)
[2018-05-14] MEDS ORDERED: fentaNYL citrate 100 MCG/2 ML VIAL IV ONE (10:17)
--- NOTE | 2018-05-14 10:37 | Pharmacy Report ---
Pharmacy Abx Initial Consult - Date of Service May 14, 2018 - Pharmacy Dosing Scope Date of Consult: 05/13/17 Consultation requested by: Edmundo Muhammad Pharmacy is consulted to initiate vancomycin IV dosing therapy, order appropriate labs and adjust drug dose/frequency. - Subjective The patient is a 57 year old M admitted on 05/13/18 17:56. - Objective Height: 5 ft 10 in Weight: 95.4 kg Vital Signs (Past 12hrs): Vital Signs Temp Pulse Pulse Resp BP Pulse Ox 05/14/18 10:25 71 14 137/72 96 05/14/18 10:20 72 14 140/77 97 05/14/18 10:15 81 18 148/88 H 97 05/14/18 10:10 67 14 137/82 99 05/14/18 10:05 69 14 158/80 H 100 05/14/18 09:45 72 12 139/88 100 05/14/18 07:43 36.7 C 69 20 146/71 H 97 05/14/18 07:02 83 16 96 05/14/18 03:05 57 L 16 97 05/13/18 23:20 36.9 C 78 18 130/82 95 Lab Results (24hrs): Laboratory Tests (24 Hours) 05/13/18 05/13/18 05/13/18 14:45 14:45 14:45 WBC 6.90 Neut # (Auto) 4.21 ESR 46 H Creatinine Est Cr Clr Drug Dosing C-Reactive Protein Cancelled 05/13/18 14:45 WBC Neut # (Auto) ESR Creatinine 0.97 Est Cr Clr Drug Dosing 96.2 C-Reactive Protein 7.80 H Micro Results: 05/13/18 15:12 Blood Culture - Pending Blood 05/13/18 14:45 Blood Culture - Pending Blood - Assessment & Plan Assessment 57 year old M admitted with SOB and h/o of bronchiectasis, recurrent MRSA lung infection, and MRSA infection of the skin with abscesses * pt was prescribed a z-jimmy on 05/07 due to complaints of flu like symptoms - he was also recently on a prednisone taper * h/o allergic bronchopulmonary aspergillosis in 2005, treated with voriconazole * of note, patient does have a negative MRSA nasal swab (obtained on admission) , however I would be very hesitant to discontinue MRSA coverage based on above history Plan Vancomycin IV * Loading dose: 2000 mg (21 mg/kg) * Maintenance dose: 1500 mg IV (15.7 mg/kg) every 10 hours * This dose produced a therapeutic trough level during Apr 2017 admission * Goal trough level for pnx : 15 to 20 mcg/mL * Trough level ordered for 05/15 prior to 0700 dose Also on cefepime 1000 mg IV q8 hours - no per pharm consult * recommend increasing to 2000 mg IV q8h Pharmacy will continue to follow and will adjust dose/frequency as necessary. Thank you.
[2018-05-14] MEDS: CEFEPIME 2,000 MG in SYRINGE 7.5 ML IV SCH ×2 (13:48→21:44)
[2018-05-14] MEDS: ENOXAPARIN INJ 40 MG/0.4 ML SYR SQ SCH (21:44)
--- NOTE | 2018-05-14 23:37 | Operative Report ---
DATE OF OPERATION: 05/14/2018 TIME: 0900. PROCEDURE: Fiberoptic bronchoscopy with bronchoalveolar lavage. INDICATIONS: Chronic bronchiectasis/history of ABPA and recurrent MRSA infection. ANESTHESIA PREOPERATIVELY: None. ANESTHESIA DURING PROCEDURE: 5 mg IV Versed, IV fentanyl 100 mcg, 20 mL of 2% Xylocaine spray above and below the cords, 4% viscous Xylocaine intranasally. DESCRIPTION OF PROCEDURE: Moderate conscious sedation was utilized, begun at 10:05 and completed at 10:19. Fiberoptic bronchoscope was inserted into the left naris with minimal difficulty and passed to the level of the true vocal cords. Cords appear to approximate normally with phonation without evidence for lesions or paralysis. The area was anesthetized with 2% Xylocaine spray and the scope was then introduced in the right and left tracheobronchial tree. The mandy was sharp. The right mainstem bronchus was found to be free of endobronchial lesions. The right upper lobe at the apical posterior and anterior segments, bronchus intermedius, right middle lobe at the medial lateral segments, and all basilar segments of right lower lobe were found to be free of endobronchial lesions. A moderate amount of mucopurulent mucoviscous secretion was lavaged from right lower lobe segmental bronchi until clear. The aspirate was sent for appropriate studies. Left tracheobronchial tree was explored and a moderate degree of global inflammatory mucosal change was seen with easy friability. Left upper lobe at the apical posterior and anterior segments, lingular subdivision of the superior and inferior segments, and all basilar segments of the left lower lobe were found to be free of endobronchial lesions. The left lower lobe was copiously lavaged with normosol and the aspirate sent for appropriate studies. The patient was mildly bronchospastic post procedure after its termination and was administered a nebulizer treatment with Xopenex 1.25 mg and transferred back to the medical floor hemodynamically stable and no signs of respiratory compromise. Will await microbiological and cytologic examination of the bronchial washings. I attest to the content of the Intraoperative Record and any orders documented therein. Any exception s are noted below.
[2018-05-15] MEDS: BREO ELLIPTA ~ ORDER AWAITING ACTION SCH ×3 (00:01→15:14)
[2018-05-15] MEDS: ALBUT/IPRATROP 3MG/0.5MG NEB 3 ML VIAL NEB SCH ×6 (04:34→23:02)
[2018-05-15] MEDS: CEFEPIME 2,000 MG in SYRINGE 7.5 ML IV SCH ×3 (05:39→20:46)
[2018-05-15] MEDS ORDERED: VANCOMYCIN TROUGH ONE (06:30)
[2018-05-15 06:38] LABS: Hematocrit (blood only) 37.7 % (42-52); Hemoglobin 12.8 g/dL (14.0-18.0); Mean Corpuscular Volume 86.1 fL (80-100); Mean Platelet Volume 9.1 fL (7.4-10.4); Platelet Count 252 K/uL (130-400); RDW Coefficient of Variation 11.7 % (11.5-14.5); RDW Standard Deviation 36.6 fL (36.4-46.3); Red Blood Count 4.38 M/uL (4.7-6.1); White Blood Count 6.73 K/uL (4.8-10.8)
[2018-05-15 07:05] LABS: Albumin Globulin Ratio 0.8 (0.9-2); BUN Creatinine Ratio 12.8 (10-20); Bilirubin,Total 0.3 mg/dl (0.2-1); Calcium 8.1 mg/dl (8.5-10.1); Creatinine Clr Calc Pharmacy 100.4 ml/min; Est GFR (African American) 104.5; Est GFR (Non-African American) 90.2; Globulin 3.8 gm/dl (2.5-4.0); Potassium 4.1 mmol/L (3.5-5.1); Total Protein 6.8 gm/dl (6.4-8.2)
[2018-05-15] MEDS: VANCOMYCIN HCL 1,500 MG in SODIUM CHLORIDE 0.9% 500 ML IV SCH (07:16)
[2018-05-15] MEDS: BENZONATATE 100 MG CAPSULE PO SCH ×3 (07:17→20:46)
[2018-05-15] MEDS: guaiFENesin 600 MG TABCR PO SCH ×2 (07:17→20:45)
--- NOTE | 2018-05-15 08:23 | Pharmacy Report ---
Pharmacy Abx Dose Short Note - Date of Service May 15, 2018 - Assessment & Plan Assessment * 57 year old M receiving VANCOMYCIN for pulmonary indication * Day # 3 of antimicrobial therapy * Of note, patient does have a negative MRSA nasal swab (obtained on admission) , however I would be very hesitant to discontinue MRSA coverage based on h/o of bronchiectasis, recurrent MRSA lung infection, and MRSA infection of the skin with abscesses Plan Vancomycin * Trough level of 15.8 mcg/mL is therapeutic * Continue dose of 1500 mg IV every 10 hours * Goal trough level: 15 to 20 mcg/mL * Trough or random level ordered for: 05/16 at 1230 Also on cefepime 2000 mg IV q8 hours - no pharm consult Pharmacy will continue to follow and will adjust dose/frequency as necessary. Thank you.
--- NOTE | 2018-05-15 10:57 | Hospitalist Progress Note ---
Date of Service May 14, 2018 Assessment & Plan (1) Shortness of breath: (2) Bronchiectasis: -Admit to med surg Patient had a bronch done today.Large amount of secretions removed. Patient appears to be responding to antibiotics Will obtain x-ray in AM. Patient will likely be discharged within next 24 hours on prednsione taper and bactrim for MRSA -Continue on Vanco/ cefepime for now. Patient has taken azithromycin x2 doses outpt, holding, -MRSA positive on bronchoscopy culture in the past. -Supportive care: Mucinex, Tessalon pearls, O2 prn, Tylenol, naproxen, DuoNeb's -Continuous pulse ox -Continue Brio Ellipta inhaler (3) MRSA (methicillin resistant staph aureus) culture positive: -Vancomycin as above -Patient has had recurrent skin infections in the past requiring surgical excise twice. (4) Aspergillosis: -As above (5) DVT prophylaxis: -Lovenox subcu, teds, SCDs Spent 35 minutes in management of patient. Subjective Patient seen and examined after bronch. Patient states he feels back to his normal self. Patient reports he can take deep breath and is no longer coughing. Review of Systems All systems reviewed & are unremarkable except as noted in HPI & below Constitutional: + fever, + fatigue and + weakness; no chills and no sweats Respiratory: + cough and + dyspnea on exertion; no chest congestion, no hemoptysis, no sputum production and no wheezing Physical Exam 2 Vital Signs (Past 24 Hours): Last Vital Signs Temp 36.7 C L 05/14/18 15:13 Pulse 65 05/14/18 15:13 Resp 20 05/14/18 15:13 BP 130/68 05/14/18 15:13 Pulse Ox 94 05/14/18 15:13 Physical Exam: General: awake, alert, no apparent distress Head: Normocephalic, atraumatic ENT: PERRL, EOMI, no pharyngeal exudate, mucous membranes moist Chest: on room air, no longer having any cough or wheeze, lungs are clear through auscultation Cardiac: Regular rate and rhythm, no murmur, no JVD, normal peripheral pulses, good capillary refill Abdominal: NABS x 4 quadrants, soft, nontender to palpation, no rebound, guarding or tenderness Extremities: Normal inspection, no peripheral edema or erythema, calfs nontender to palpation Psych: Normal mood and affect Neuro: AAO x 3, strength intact bilaterally and related 5/5, no motor deficits, speech is clear, no peripheral sensory deficits
--- NOTE | 2018-05-15 11:13 | XRay Report ---
XR chest 1V portable CLINICAL HISTORY: Bronchopneumonia COMPARISON STUDY: Chest radiograph and chest CT May 13, 2018. FINDINGS: There is no pneumothorax or pleural effusion. There is no evidence for pulmonary edema. Car diomediastinal silhouette is normal. Mild left lower lung opacity is noted. There is also minimal rig ht basilar opacity. There is no lobar consolidation. IMPRESSION: Mild bibasilar opacities which favor bronchopneumonia, better shown on CT of April. Electronically signed by: Josep Duval M.D. 05/15/2018 11:12 AM
--- NOTE | 2018-05-15 11:54 | Hospitalist Progress Note ---
Date of Service May 15, 2018 Assessment & Plan (1) Shortness of breath: (2) Bronchiectasis: -Admit to med surg Patient had a bronch done yesterday. Large amount of secretions removed. Patient appears to be responding to antibiotics Repeate x-ray shows no changes. Unsure if patient has an active infection. Patient was likely bronchospastic. However given his history of MRSA, will place patient on doxy and continue cefepime overnight. Will likely discharge patient in AM on steroid taper and 3 week course of doxy. Patient will f/u with Frantz Maynard and is seeking another opinion. However it appears he has seen multiple pulmonolgists in the past. -MRSA positive on bronchoscopy culture in the past. MRSA nasal swab was negative during this admission -Supportive care: Mucinex, Tessalon pearls, O2 prn, Tylenol, naproxen, DuoNeb's -Continuous pulse ox -Continue Brio Ellipta inhaler (3) MRSA (methicillin resistant staph aureus) culture positive: -Vancomycin is stopped -Patient has had recurrent skin infections in the past requiring surgical excise twice. (4) Aspergillosis: -As above (5) DVT prophylaxis: -Lovenox subcu, teds, SCDs Spent 45 minutes in management of patient. Subjective Patient reports that he had a rough night and he had difficulty breathing. He states though that now he is feeling better. Dr. Maynard had stopped by earlier and had explained that patient is likely bronchospastic. Unsure if there is an active infection. Patient reports he can take deep breath and is no longer coughing. Constitutional: + fever, + fatigue and + weakness; no chills and no sweats Respiratory: + cough and + dyspnea on exertion; no chest congestion, no hemoptysis, no sputum production and no wheezing Physical Exam 2 Vital Signs (Past 24 Hours): Last Vital Signs Temp 36.4 C L 05/15/18 07:41 Pulse 73 05/15/18 07:41 Resp 18 05/15/18 07:41 BP 146/87 H 05/15/18 07:41 Pulse Ox 93 05/15/18 07:41 Physical Exam: General: awake, alert, no apparent distress Head: Normocephalic, atraumatic ENT: PERRL, EOMI, no pharyngeal exudate, mucous membranes moist Chest: on room air, lungs remain clear through auscultation Cardiac: Regular rate and rhythm, no murmur, no JVD, normal peripheral pulses, good capillary refill Abdominal: NABS x 4 quadrants, soft, nontender to palpation, no rebound, guarding or tenderness Extremities: Normal inspection, no peripheral edema or erythema, calfs nontender to palpation Psych: Normal mood and affect Neuro: AAO x 3, strength intact bilaterally and related 5/5, no motor deficits, speech is clear, no peripheral sensory deficits
[2018-05-15] MEDS: methylPREDNISolone 80 MG in SYRINGE 0 ML IV SCH (12:45)
--- NOTE | 2018-05-15 14:35 | Progress Note ---
DATE: 05/15/2018 PULMONARY MEDICINE PROGRESS NOTE Chart reviewed, the patient examined. SUBJECTIVE: The patient tolerated the bronchoscopy well with significant mucoviscous secretion lavaged from both the right and left lower lobes, specifically left lower lobe with cultures planted. Last evening, he felt markedly improved and consideration was given to discharge him. However, throughout the course of the evening towards fender mechanic, he became very dyspneic with chest pressure and extremely agitated about how short of breath he had become. At that time, he had not been started on steroid therapy, but was receiving aerosolized bronchodilator and had been covered with IV vancomycin and cefepime for possible MRSA infection with pneumonitis. Previous culture from a year ago April grew out MRSA from a bronchoscopy that was performed and sensitive to Bactrim as well as p.o. doxycycline in addition to intravenous medication. His history dates back to 2005 when he presented with a cavitary left lower lobe process. At that time, it was biopsied by Dr. Holcomb showing granulomatous pneumonitis and grew out Aspergillus fumigatus. 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 I saw him approximately a year ago after multiple admissions here for MRSA infection that included abscesses in the right axillary region as well as right wrist that required drainage and resection and prolonged antibiotic coverage with Bactrim and rifampin and the patient was followed by Dr. Emerson. Those areas healed, but when his pulmonary situation failed to improve, he underwent repeat bronchoscopic evaluation with MRSA grown from the left lower lobe. There was no sign of Aspergillus infection. In fact, in 2015, he underwent right upper lobe biopsy with Dr. Parkinson, but once again no sign both by culture or by biopsy of fungal infection. His PFTs are excellent and I believe he has a localized form of bronchiectasis involving the left lower lobe. His humoral antibody response is excellent with a good response to pneumococcus, diphtheria and tetanus. He has received pneumococcal vaccine with Prevnar and once again had an excellent response to that vaccination. His IgG level has been normal and no further workup was entailed. IgE level was low and Aspergillus antibodies have been negative and once again except for the 2005 culture, he has not grown Aspergillus from any culture that we have obtained. He also complained this morning bitterly of burning in the left wrist and forearm, possibly from an infiltrated IV. He has a maternal aunt that just from "lung disease" and this was on his mind as well. His daughter was in attendance and wanted him transferred to [facility] on the pulmonary service or at least get a second opinion from a digital learning platforms manager/materials planner at that facility. PHYSICAL EXAMINATION: VITAL SIGNS: Blood pressure 146/87, pulse 73 and regular, respiratory rate 18, temperature 36.4, O2 sat 93% on room air. SKIN: Without lesion. HEENT: Atraumatic, normocephalic. PERRLA. There may be some puffiness in the right parotid area, but nontender. NECK: Neck veins are not distended at 45 degrees. No obvious evidence of adenopathy. LUNGS: Scattered wheeze left base, otherwise distant P and A. CARDIAC: Regular rhythm. No murmurs, gallops, or rubs. ABDOMEN: Scaphoid. EXTREMITIES: No pedal edema, clubbing or cyanosis. NEUROLOGIC: Excellent O2 saturation on room air. LABORATORY DATA: I repeated a chest x-ray and compared to previous CAT scanning done several days ago, there were mild bibasilar opacities seen obviously on 05/13/2018 CT scan. Cultures pending from the bronchial washing. EKG shows no acute changes. White count on admission 6700, H and H 12.8 and 37.7. PRP within normal limits. Influenza A and B PCR negative. OVERALL ASSESSMENT: A 57-year-old with a past history of semi-invasive aspergillosis, treated effectively in 2005 with suspected localized bronchiectasis involving the left lower lobe basilar segments with recurrent infection that includes MRSA as of last year and skin infection from MRSA, now appears somewhat bronchospastic. There is no sign of failure nor do I believe his symptoms are cardiac in origin. When I came back to talk with him an hour later once the x-ray had been done, he was walking the hallways relatively asymptomatic and had calm down. His was in attendance. I told him that I was starting IV Solu-Medrol 80 mg q. 12 hours in addition to aerosolized bronchodilator. Dr. Patricoi was in attendance. We decided to stop the IV vancomycin as I believe it has been irritative to his vein and he developed the phlebitis from it, I think we can go with p.o. doxycycline 100 mg p.o. b.i.d. in addition to the IV cefepime, while we await culture results. Will use steroid therapy and will reevaluate the patient in the morning and suspect he will be able to be discharged at that point in time. I have also offered them a referral to [facility] pulmonary division electively that on Thursday I would make an appointment for them to my office. I did not think it was appropriate to consider acute transfer at this point in time nor would I think he would be accepted as a patient, given how good he looks clinically. The family was fine with that and he is settled down and feels better and seems comfortable with my explanation. I actually think the patient has done quite well prior to this admission as he has not been admitted to the hospital in a year's time and is living a fairly normal life without any respiratory limitations. This is as good as I think we can expect, but nevertheless will await the culture results from the bronchial washings and monitor his clinical course.
[2018-05-15] MEDS: ENOXAPARIN INJ 40 MG/0.4 ML SYR SQ SCH ×2 (20:46→21:24)
[2018-05-15] MEDS: DOXYCYCLINE HYCLATE 100 MG CAP PO SCH (20:47)
[2018-05-16] MEDS: methylPREDNISolone 80 MG in SYRINGE 0 ML IV SCH (00:24)
[2018-05-16] MEDS: BREO ELLIPTA ~ ORDER AWAITING ACTION SCH ×2 (01:28→07:31)
[2018-05-16] MEDS: ALBUT/IPRATROP 3MG/0.5MG NEB 3 ML VIAL NEB SCH ×2 (03:35→07:00)
[2018-05-16] MEDS: CEFEPIME 2,000 MG in SYRINGE 7.5 ML IV SCH (05:17)
[2018-05-16] MEDS: DOXYCYCLINE HYCLATE 100 MG CAP PO SCH (07:35)
[2018-05-16] MEDS: BENZONATATE 100 MG CAPSULE PO SCH (07:36)
[2018-05-16] MEDS: guaiFENesin 600 MG TABCR PO SCH (07:36)
--- NOTE | 2018-05-16 10:26 | Discharge Summary ---
Date of Service May 16, 2018 Admission HPI Per Admitting Provider This is a 57 yo M with PMHx of bronchiectasis, hx of recurrent MRSA of the skin , Aspergillosis pneumonia treated in 2005 with voriconazole. Pt presents with flu-like symptoms since last Thursday. The patient was seen in the outpatient pulmonary clinic by Sunita Regalado, today for an acute visit. Patient notes that he has had nonproductive cough, sweats and chills, T-max = 101 on Thursday, poor appetite and fluid intake, and intermittent headache. He has been alternating with tylenol and aleve. He had been called by the pulmonary office on Thursday and given Rx for azithromycin. The patient did not see any significant improvement after 2 days of this antibiotic, therefore went back to the pulmonary office. Patient feels the same way he did prior to his last admission approximately 1 year ago with similar presentation. At that point time he underwent bronchoscopy with cultures +MRSA. He was referred here today for possible bronchoscopy tomorrow. 2 view chest x-ray obtained showing increased markings in left perihilar region and left lower lobe, likely secondary to atelectasis and bronchiectasis. Principal Diagnosis bronchiectasis (exacerbation) Discharge Exam General: awake, alert, no apparent distress Head: Normocephalic, atraumatic ENT: PERRL, EOMI, no pharyngeal exudate, mucous membranes moist Chest: on room air, lungs remain clear through auscultation Cardiac: Regular rate and rhythm, no murmur, no JVD, normal peripheral pulses, good capillary refill Abdominal: NABS x 4 quadrants, soft, nontender to palpation, no rebound, guarding or tenderness Extremities: Normal inspection, no peripheral edema or erythema, calfs nontender to palpation Psych: Normal mood and affect Neuro: AAO x 3, strength intact bilaterally and related 5/5, no motor deficits, speech is clear, no peripheral sensory deficits Discharge Data Allergies Allergy/AdvReac Type Severity Reaction Status Date / Time lorazepam Allergy Severe "DANGEROUSLY Verified 05/13/18 15:51 RAISES BLOOD PRESSURE" midazolam AdvReac Severe TACHYCARDIA Verified 05/13/18 15:51 codeine AdvReac Mild NAUSEA Verified 05/13/18 15:51 silver AdvReac Unknown RASH,PAIN Verified 05/13/18 15:51 WITH SILVER ALGINATE SMOOTH MUSCLE Allergy Unknown "SOME SORT Uncoded 05/13/18 15:51 OF MUSCLE RELAXER" Consultations 05/13/18 16:35 ED Decision to Admit Stat 05/13/18 19:53 Consult Case Management - Discharge Planning Routine Consult Pulmonology Routine Procedures Performed Operation Date: 05/14/18 09:45 Actual Procedures p Bronchoscopy Radiology - Gatito Maynard MD Ordered Studies 05/13/18 19:53 CT chest wo con Stat 05/14/18 09:30 [place] bronchoscopy Routine Hospital Course (1) Shortness of breath: (2) Bronchiectasis: -Admit to med surg Patient had a bronch done Large amount of secretions removed. Patient appears to be responding to antibiotics Repeate x-ray shows no changes. Unsure if patient has an active infection. Patient was likely bronchospastic. However given his history of MRSA, will place patient on doxy and continue cefepime overnight. discharged patient on steroid taper and 3 week course of doxy. Patient will f/u with / Ceasar and is seeking another opinion. However it appears he has seen multiple pulmonolgists in the past. -MRSA positive on bronchoscopy culture in the past. MRSA nasal swab was negative during this admission -Supportive care: Mucinex, Tessalon pearls, O2 prn, Tylenol, naproxen, DuoNeb's -Continuous pulse ox -Continue Brio Ellipta inhaler (3) MRSA (methicillin resistant staph aureus) culture positive: -Vancomycin is stopped -Patient has had recurrent skin infections in the past requiring surgical excise twice. (4) Aspergillosis: -As above (5) DVT prophylaxis: -Lovenox subcu, teds, SCDs Total Time Total Time Spent Total Time Spent (In Minutes): 35 Total Time Includes: Examination of the Patient, Discharge Planning and Medication Reconciliation Discharge Plan Discharge Items Patient Disposition: Home - Self-Care Reason For Visit: SOB Discharge Diagnosis: Pneumonia: likely MRSA Discharge Goals: Decrease discomfort Activity: Resume your previous activity Non-emergency contact: Primary Care Provider and Store Operations Specialist Call non-emergency contact if: you have any medication questions and your symptoms worsen Follow-up/Referrals: Gatito Maynard MD [Physician] - 05/21/18 1:00 pm (follow up lung doctor appointment) Gatito Ward MD [Primary Care Provider] - 05/18/18 3:10 pm (follow up family physician appointment) Diet: Regular Addtl Provider Instructions: You were seen a flair up of your bronchiectasis. You had a scope and a large amount of secretions were cleaned out of the lung. Will recommend antibiotics for possibility of MRSA pneumonia. You will be on doxycycline for 20 more days. Please not brain picker the bactrim antibiotic Will also place you on a steroid taper. You will followup with Dr. Maynard in about 7 -10 days Please call his office on Thursday to set up an appointment. Prescriptions: New benzonatate [Tessalon Perles] 100 mg Capsule 100 mg PO TID PRN (Reason: cough) Qty: 15 RF: 0 prednisone 10 mg tablet 10 mg PO UD Qty: 35 RF: 0 doxycycline hyclate 100 mg Capsule 100 mg PO BID Qty: 40 RF: 0 Continue ipratropium-albuterol 0.5 mg-3 mg(2.5 mg base)/3 mL Solution For Nebulization 3 ml INHALATION QID PRN (Reason: Shortness Of Breath Or Wheezing) RF: 0 acetaminophen [Tylenol Extra Strength] 500 mg Tablet 1,000 mg PO QID PRN (Reason: Pain) RF: 0 naproxen sodium [Aleve] 220 mg Tablet 440 mg PO BID PRN (Reason: Pain) RF: 0 fluticasone-vilanterol [Breo Ellipta] 200-25 mcg/dose blister with device 1 puff Inhalation DAILY RF: 0 albuterol sulfate [ProAir RespiClick] 90 mcg/actuation Aerosol Powdr Breath Activated 2 inh INHALATION Q4 PRN (Reason: Shortness Of Breath Or Wheezing) RF: 0 Discontinued azithromycin [Zithromax Z-Zachariah] 250 mg tablet 1 - 2 tab PO DAILY RF: 0 Stand-Alone Forms: [facility] Discharge Orders: Discharge Order (Routine); Ordered 05/16/18 Ordered By: Mike Patricio Admission Data Admit Date/Time: 05/13/18 17:56 Attending Provider: Mike Patricio Admit Provider: Brandon Lyle Primary Care Provider: Gatito Ward Other Providers: Gatito Maynard Service: Medical Other Interventions: Discharge Summary Assessment (RN) Last Done: 05/16/18 10:33 DC Date/Time DO NOT enter until pt leaves facility: 05/16/18 10:45
[2018-05-16] MEDS ORDERED: VANCOMYCIN TROUGH ONE (12:30)
--- NOTE | 2018-05-16 12:52 | Progress Note ---
DATE: 05/16/2018 Chart reviewed, patient examined. SUBJECTIVE: The patient is much better today, slept well, minimal cough, seems to have responded to the IV Solu-Medrol. Bronchial washings are still not growing an organism, but we had a long discussion this morning and I believe he can safely be discharged with follow up in my clinic in a week and half. I will ask my office to set up an appointment with him for a second opinion with [facility] pulmonary division and would discharge the patient on a 16-day prednisone taper 40 mg daily x2, 35 mg daily x2 prednisone until off. I would give an additional 2 weeks of doxycycline 100 mg p.o. b.i.d. I have him continue his Breo Ellipta inhaler and use of DuoNeb solution via nebulizer. We will see him in the clinic in a week and half time and I have asked him to make an appointment with our office tomorrow when it opens and we will go about securing a second opinion for him at [facility]. I have spoken with Dr. Patricio about impending discharge for him today.
== END 2018-05-16 10:45 | disposition home or self-care (01) | DRG 192 ==
LOC: ED 14:18 → SUATTDRO 17:56 → 4W 17:56